=== PATIENT | female | born 1980 | race Caucasian/White ===

== ENCOUNTER 2023-11-02 09:09 | Outpatient (OUT) | payer MEDICAID, SELFPAY ==
[2023-11-02 09:41] LABS: Basophils Absolute Auto 0.1 10^3/uL (0.0-0.1); Basophils Percent Auto 1.5 % (0.2-2.0); Eosinophils Absolute Auto 0.2 10^3/uL (0.0-0.7); Eosinophils Percent Auto 2.5 % (0.9-7.0); Hematocrit 45.7 % (36.0-48.0); Hemoglobin 14.6 g/dL (12.0-16.0); Immature Granulocytes Abs Auto 0.02 10^3/uL (0.00-0.03); Immature Granulocytes Pct Auto 0.3 % (0.0-0.5); Lymphocytes Absolute Auto 2.1 10^3/uL (1.2-3.8); Lymphocytes Percent Auto 34.4 % (20.5-60.0); Mean Corpuscular HGB Conc 31.9 g/dL (29.9-35.2); Mean Corpuscular Hemoglobin 29.4 pg (26.7-34.0); Mean Platelet Volume 9.1 fL (9.5-13.5); Monocytes Absolute Auto 0.4 10^3/uL (0.3-0.8); Monocytes Percent Auto 6.6 % (1.7-12.0); Neutrophils Absolute Auto 3.3 10^3/uL (1.4-6.5); Neutrophils Percent Auto 54.7 % (43.0-75.0); Platelet Count 406 10^3/uL (150-450); Red Blood Count 4.97 10^6/uL (4.20-5.40); Red Cell Distribution Width 12.6 % (11.0-15.0); White Blood Count 6.1 10^3/uL (4.0-11.0)
[2023-11-02 10:32] LABS: Erythrocyte Sedimentation Rate 21 mm/hr (<=20)
[2023-11-02 10:34] LABS: Bilirubin Urine NEGATIVE (NEGATIVE); Blood Urine SMALL (NEGATIVE); Clarity Urine CLEAR (CLEAR); Color Urine YELLOW (YELLOW); Glucose Urine UA NEGATIVE (NEGATIVE); Ketones Urine NEGATIVE (NEGATIVE); Leukocyte Esterase Urine NEGATIVE (NEGATIVE); Nitrite Urine NEGATIVE (NEGATIVE); Protein Urine NEGATIVE (NEG/TRACE); Urobilinogen Urine 0.2 EU/dL (0.2-1.0)
[2023-11-02 10:35] LABS: Urine Microscopic Indicated YES
[2023-11-02 11:34] LABS: Alanine Aminotransferase 19 U/L (14-59); Alkaline Phosphatase 87 U/L (46-116); Anion Gap 8.6; Aspartate Amino Transferase 15 U/L (15-37); BUN Creatinine Ratio 18.7; Bilirubin Total 0.5 mg/dL (0.2-1.0); Calcium 9.7 mg/dL (8.5-10.1); Carbon Dioxide 28.4 mmol/L (21.0-32.0); Chloride 101 mmol/L (98-107); Cholesterol 237 mg/dL (<=200); Estimated GFR (African America >60 (>=60); Estimated GFR (Non-African Ame >60 (>=60); Free T3 2.94 pg/mL (2.18-3.98); Glucose 90 mg/dL (74-106); HDL Cholesterol 80 mg/dL (40-60); Sodium 134 mmol/L (136-145); Triglycerides 50 mg/dL (<=150)
[2023-11-02 12:00] LABS: Bacteria Urine SMALL #/HPF (NONE SEEN); Cast Seen? NONE SEEN #/LPF (NONE SEEN); Crystals Seen? None Seen #/HPF (None Seen); Mucus Urine NONE SEEN (NONE SEEN); Squamous Epithelial Cell Urine FEW #/LPF (NONE/RARE); WBC Urine 0-2 #/HPF (NONE SEEN)
[2023-11-02 12:01] LABS: Urine Culture Indicated YES
== END 2023-11-02 09:10 | disposition home or self-care (01) ==
LOC: LAB 09:13
PROVIDERS: PCP Nurse Practitioner; Visit Provider Nurse Practitioner
DX: R63.4 Abnormal weight loss (principal)
CPT/HCPCS: 36415; 80053; 80061; 81001; 84443; 84481; 85025; 85652; 87086

== ENCOUNTER 2023-11-19 13:49 | Outpatient (OUT) | payer MEDICAID, SELFPAY ==
--- NOTE | 2023-11-19 | US_ITS ---
Patient Name: ARIK LEMONS MR#: [id number] : 1980 Exam Date: 11/19/2023 Ordering Doctor: PRECIOUS Benavides CNP RADIOLOGY REPORT PROCEDURE: MM TOMOSYNTHESIS DIAGNOSTIC BI, 11/19/2023, 13:54 US BREAST RT LIMITED, 11/19/2023, 13:57 COMPARISON: MAMMO POST BIOPSY RIGHT, 09/13/2022. INDICATIONS: Atypical Ductal Hyperplasia Of Right Breast N60.91 Calculator Name NCI Breast Cancer Risk Assessment Tool 5 Year Breast Cancer Risk 3.50% Lifetime Breast Cancer Risk 28.30% Personal Breast Cancer No Personal Ovarian Cancer No Treatments None Family Cancers Mother with pancreas cancer at age 55; Grandfather-paternal with liver cancer at age ~68; Grandmother-paternal with brain cancer at age ~74. LOCATION: [facility] BREAST COMPOSITION: Extremely dense, which lowers the sensitivity of mammography. FINDINGS: DIAGNOSTIC CATEGORY 0--INCOMPLETE: NEED ADDITIONAL IMAGING EVALUATION. The breasts are stable in size and overall fibroglandular configuration. Very dense fibroglandular tissue limits diagnostic sensitivity.Scattered benign-appearing lymph nodes are present. RIGHT BREAST: There has been to a interval increase in fibroglandular density in the upper-outer quadrant of the right breast with marked increase in use microcalcifications some of which appear pleomorphic. This area has previously been biopsied as evidenced by a micro clip marker upper outer quadrant, mid to posterior breast. Ultrasound was performed demonstrating heterogeneous fibroglandular tissue with multiple areas of focal hypo echogenicity measuring up to 8.2 mm. In light of the increased overall density, and multiple ultrasound lesions, MRI follow-up is recommended. Alternatively ultrasound-guided biopsy could be performed LEFT BREAST: No significant suspicious finding. RECOMMENDATIONS: BREAST MRI: BILATERAL BREASTS PLEASE NOTE: A NORMAL MAMMOGRAM DOES NOT EXCLUDE THE POSSIBILITY OF BREAST CANCER. A CLINICALLY SUSPICIOUS PALPABLE LUMP SHOULD BE BIOPSIED. Dictated by: Kumar Nieves MD on 11/19/2023 at 15:15 Approved by: Kumar Nieves MD on 11/19/2023 at 15:19
--- NOTE | 2023-11-19 13:54 | MM_ITS ---
Patient Name: ARIK LEMONS MR#: [id number] : 1980 Exam Date: 11/19/2023 Ordering Doctor: PRECIOUS Benavides CNP RADIOLOGY REPORT PROCEDURE: MM TOMOSYNTHESIS DIAGNOSTIC BI, 11/19/2023, 13:54 US BREAST RT LIMITED, 11/19/2023, 13:57 COMPARISON: MAMMO POST BIOPSY RIGHT, 09/13/2022. INDICATIONS: Atypical Ductal Hyperplasia Of Right Breast N60.91 Calculator Name NCI Breast Cancer Risk Assessment Tool 5 Year Breast Cancer Risk 3.50% Lifetime Breast Cancer Risk 28.30% Personal Breast Cancer No Personal Ovarian Cancer No Treatments None Family Cancers Mother with pancreas cancer at age 55; Grandfather-paternal with liver cancer at age ~68; Grandmother-paternal with brain cancer at age ~74. LOCATION: [facility] BREAST COMPOSITION: Extremely dense, which lowers the sensitivity of mammography. FINDINGS: DIAGNOSTIC CATEGORY 0--INCOMPLETE: NEED ADDITIONAL IMAGING EVALUATION. The breasts are stable in size and overall fibroglandular configuration. Very dense fibroglandular tissue limits diagnostic sensitivity.Scattered benign-appearing lymph nodes are present. RIGHT BREAST: There has been to a interval increase in fibroglandular density in the upper-outer quadrant of the right breast with marked increase in use microcalcifications some of which appear pleomorphic. This area has previously been biopsied as evidenced by a micro clip marker upper outer quadrant, mid to posterior breast. Ultrasound was performed demonstrating heterogeneous fibroglandular tissue with multiple areas of focal hypo echogenicity measuring up to 8.2 mm. In light of the increased overall density, and multiple ultrasound lesions, MRI follow-up is recommended. Alternatively ultrasound-guided biopsy could be performed LEFT BREAST: No significant suspicious finding. RECOMMENDATIONS: BREAST MRI: BILATERAL BREASTS PLEASE NOTE: A NORMAL MAMMOGRAM DOES NOT EXCLUDE THE POSSIBILITY OF BREAST CANCER. A CLINICALLY SUSPICIOUS PALPABLE LUMP SHOULD BE BIOPSIED. Dictated by: Kumar Nieves MD on 11/19/2023 at 15:15 Approved by: Kumar Nieves MD on 11/19/2023 at 15:19
--- OUTSIDE RECORDS SUMMARY | 2023-11-19 13:54 | XMS_ITS | CCD ---
Author Name Unknown Address [id number] [place] [address] Organization [facility] Care Team Providers Care Code Enforcement Supervisor Name Role Phone AICHHOLZ, CANCER SPEC KITTY Admitting Unavailable AICHHOLZ, CANCER SPEC KITTY Attending Unavailable AICHHOLZ, CANCER SPEC KITTY Primary Care Unavailable AICHHOLZ, CANCER SPEC KITTY Consulting Unavailable KARASIK, DR MUÑOZ Admitting Unavailable KARASIK, DR MUÑOZ Attending Unavailable AICHHOLZ, CANCER SPEC KITTY Primary Care Unavailable KARASIK, DR MUÑOZ Consulting Unavailable BUTLER, DR MAIN Consulting Unavailable AICHHOLZ, CANCER SPEC KITTY Admitting Unavailable AICHHOLZ, CANCER SPEC KITTY Attending Unavailable AICHHOLZ, CANCER SPEC KITTY Primary Care Unavailable AICHHOLZ, CANCER SPEC KITTY Consulting Unavailable MISC, DR DUMONT Admitting Unavailable MISC, DR DUMONT Attending Unavailable AICHHOLZ, CANCER SPEC KITTY Primary Care Unavailable MISC, DR DUMONT Consulting Unavailable MISC, DR DUMONT Admitting Unavailable MISC, DR DUMONT Attending Unavailable AICHHOLZ, CANCER SPEC KITTY Primary Care Unavailable MISC, DR DUMONT Consulting Unavailable KARASIK, DR MUÑOZ Admitting Unavailable KARASIK, DR MUÑOZ Attending Unavailable AICHHOLZ, CANCER SPEC KITTY Primary Care Unavailable KARASIK, DR MUÑOZ Consulting Unavailable ZIEBER, DR PARVEEN Lopez Consulting Unavailable MISC, DR DUMONT Admitting Unavailable MISC, DR DUMONT Attending Unavailable AICHHOLZ, CANCER SPEC KITTY Primary Care Unavailable KARASIK, DR MUÑOZ Admitting Unavailable KARASIK, DR MUÑOZ Attending Unavailable AICHHOLZ, CANCER SPEC KITTY Primary Care Unavailable KARASIK, DR MUÑOZ Consulting Unavailable AICHHOLZ, KITTY Attending Unavailable AICHHOLZ, KITTY Attending Unavailable Allergies Allergy Classification Reported Allergen(s) Allergy Type Date of Onset Reaction(s) Facility (1 source) lamoTRIgine Drug Allergy 08-31-[address] [facility] Repository Problems Active Problems Problem Classification Problem Date Documented Date Episodic/Chronic Anxiety disorders (2 sources) Post-traumatic stress disorder, unspecified; Translations: [Generalized anxiety disorder] Onset: 2 Chronic Immunizations and screening for infectious disease (1 source) Encounter for screening for human papillomavirus (HPV); Translations: [ENC SCREENING HUMAN PAPILLOMAVIRUS] Onset: 2 Episodic Mood disorders (4 sources) Bipolar disorder, current episode mixed, severe, without psychotic features; Translations: [BIPOLAR CURR MIXED SEVERE W/O PSYCH] Onset: 2 Chronic Nonmalignant breast conditions (10 sources) Mammographic microcalcification found on diagnostic imaging of breast; Translations: [Hypertrophy of breast] Onset: 2 Episodic Other nutritional; endocrine; and metabolic disorders (5 sources) Polydipsia; Translations: [POLYDIPSIA] Onset: 2 Episodic Other screening for suspected conditions (not mental disorders or infectious disease) (4 sources) Encounter for screening for malignant neoplasm of cervix; Translations: [ENC SCREENING MALIG NEOPLASM CERV] Onset: 2 Episodic Schizophrenia and other psychotic disorders (1 source) Unspecified psychosis not due to a substance or known physiological condition; Translations: [UNS PSYCHOS D/O NOT SUBSTNC/PHYSIOL] Onset: 2 Chronic Skin and subcutaneous tissue infections (5 sources) Local infection of the skin and subcutaneous tissue, unspecified; Translations: [Cutaneous abscess, unspecified] Onset: 2 Episodic Past or Other Problems Problem Classification Problem Date Documented Da te Episodic/Chronic Other aftercare (1 source) Other mcfp (current) drug therapy; Translations: [OTH PENITENTIARY 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 THERAPY] Onset: 06-22-2022 Episodic Residual codes; unclassified (1 source) Anterograde amnesia; Translations: [ANTEROGRADE AMNESIA] Onset: 06-22-2022 Episodic Results Test Name Value Interpretation Reference Range Facility MAMMO POST BIOPSY RIGHTon MAMMO POST BIOPSY RIGHT Patient: ARIK LEMONS Exam Date: 09/13/2022 : 1980 Gender:F Ordering : DR TONI STEVE . Admission #: [id number] Family : Order #: [id number] CLICK HERE TO VIEW EXAM This report includes an Addendum and supersedes previous reports for this exam. RADIOLOGY REPORT PROCEDURE: MAMMOGRAM POST BIOPSY IMAGES COMPARISON: MG STEREO CORE NDL W CLIP RT, 09/13/2022. INDICATIONS: Microcalcifications of the breast BREAST COMPOSITION: Extremely dense, which lowers the sensitivity of mammography. FINDINGS: BIOPSY MARKER: A metallic marker has been placed in the targeted location within the posterior upper-outer quadrant of the right breast. BREAST FINDINGS: Expected post biopsy findings. RECOMMENDATIONS: Dictated by: Parveen Peralta M.D. on 09/13/2022 at 15:26 Approved by: Parveen Peralta M.D. on 09/13/2022 at 15:27 ADDENDUM: COMPARISON: MG MAMM DIAGNOSTIC 3D GREGG CAD, 08/31/2022. FINDINGS: DIAGNOSTIC CATEGORY 3--PROBABLY BENIGN FINDING. THE FOLLOWING FINDING(S) HAS A HIGH PROBABILITY OF A BENIGN ETIOLOGY: RECOMMENDATIONS: SURGICAL CONSULTATION. SHORT TERM FOLLOW-UP DIAGNOSTIC MAMMOGRAM RIGHT BREAST IN 6 MONTHS. Dictated by: Parveen Peralta M.D. on 09/25/2022 at 12:23 Approved by: Parveen Peralta M.D. on 09/25/2022 at 12:[address] [facility] MG STEREO CORE NDL W CLIP RT on 09-13-2022 MG STEREO CORE NDL W CLIP RT Patient: ARIK LEMONS Exam Date: 09/13/2022 : 1980 Gender:F Ordering : DR TONI STEVE . Admission #: [id number] Family : Order #: [id number] CLICK HERE TO VIEW EXAM This report includes an Addendum and supersedes previous reports for this exam. RADIOLOGY REPORT PROCEDURE: MAMMOGRAM STEREO CORE MARILY WITH CLIP RIGHT COMPARISON: MG MAMM DIAGNOSTIC 3D GREGG CAD, 08/31/2022. MG MAMM GREGG DIAG W CAD DIG, 01/02/2016. BREAST GREGG LIMITED, 08/31/2022. INDICATIONS: Microcalcifications of the breast DESCRIPTION: Following informed consent, digital stereotactic mammographic views were obtained to localize the lesion. Multiple vacuum-assisted core biopsies were obtained. Specimen images were obtained to confirm proper sampling. The location of the biopsy was then marked as indicated below. FINDINGS: RECOMMENDATIONS: SPECIMEN #, LOCATION: 5 core specimens; posterior upper-outer quadrant.. SPECIMEN IMAGE: Numerous calcifications within multiple cores. BIOPSY NEEDLE: 10 gauge Revolve(r) vacuum core biopsy needle. MARKER(S) PLACED: A single metallic marker was placed in the appropriate targeted location. MEDICATION: Buffered 1% lidocaine superficial;1% lidocaine with epinephrine deep. COMPLICATIONS: None. PATHOLOGY / LAB: Pending. CONCLUSION: 1. Technically successful biopsy of the breast lesion. 2. Pathology results are pending. An addendum will be added when pathology results are final. Dictated by: Parveen Peralta M.D. on 09/13/2022 at 15:25 Approved by: Parveen Peralta M.D. on 09/13/2022 at 15:26 ADDENDUM: Final pathologic diagnosis: Focus of atypical ductal hyperplasia. Fibrocystic changes. Microcalcifications. This report was transmitted to the referring physician's office on September 25, 2022, and the office called to confirm receipt. Dictated by: Parveen Peralta M.D. on 09/25/2022 at 12:21 Approved by: Parveen Peralta M.D. on 09/25/2022 at 12:[address] [facility] HIV 1 AND 2 WITH REFLEXon HIV Screen 4th Generation wRfx Non-Reactive Normal Non Reactive [facility] Comment on above: Result Comment: HIV Negative HIV-1/HIV-2 antibodies and HIV-1 p24 antigen were NOT detected. There is no laboratory evidence of HIV infection. Performed By: #### H IV12 #### [facility] [address] [place] [address] Dr. Francisca Henderson RPR QUANTon 09-02-2022 Rapid Plasma Reagin, Quant Non-Reactive Normal NonRea<1:1 [facility] Comment on above: Result Comment: Plea se Note: This test does not meet current guidelines for screening and diagnosis of syphilis. This test is intended for following treatment response in patients being treated for syphilis infection. To screen for syphilis infection, a reflex cascade that includes both RPR and a treponema-specific assay should be utilized, such as Treponema pallidum (Syphilis) Screening [place] (684008) or Rapid Plasma Reagin (RPR) Test With Reflex to Quantitative RPR and Confirmatory Treponema pallidum Antibodies (781157). Performed By: #### R PRQ ####[facility] [id number] [place], [place] [address]QbDr. Francisca Henderson CBC AUTO DIFFon 08-31-2022 BASO # 0.1 103/ul Normal 0.0-0.1 [facility] Comment on above: Performed By: #### C BC #### [facility] [address] [address] [address] Francisca Henderson Basophils/100 WBC (Bld) 1.1 % Normal 0.2-2.0 [facility] Comment on above: Performed By: #### C BC #### [facility] [address] [address] [address] Francisca Henderson EO # 0.3 103/ul Normal 0.0-0.7 [facility] Comment on above: Performed By: #### C BC #### [facility] [address] [address] [address] Francisca Henderson Eosinophils/100 WBC (Bld) 2.8 % Normal 0.9-7.0 [facility] Comment on above: Performed By: #### C BC #### [facility] [address] [address] [address] Francisca Henderson Erythrocyte distribution width (RBC) [Ratio] 12.3 % Normal 11.0-15.0 [facility] Comment on above: Performed By: #### C BC #### [facility] [address] [address] [address] Francisca Henderson Hematocrit (Bld) [Volume fraction] 39.4 % Normal 36.0-48.0 [facility] Comment on above: Performed By: #### C BC #### [facility] [address] [address] [address] Francisca Henderson Hemoglobin (Bld) [Mass/Vol] 12.8 g/dL Normal 12.0-16.0 [facility] Comment on above: Performed By: #### C BC #### [facility] [address] [address] [address] Francisca Henderson IG # 0.03 10e3/ul Normal 0.00-0.03 [facility] Comment on above: Performed By: #### C BC #### [facility] [address] [place] [address] Dr. Francisca Henderson IG % 0.3 % Normal 0.0-0.5 [facility] Comment on above: Performed By: #### C BC #### [facility] [address] [place] [address] Dr. Francisca Henderson LYMPH # 2.6 103/ul Normal 1.2-3.8 [facility] Comment on above: Performed By: #### C BC #### [facility] [address] [place] [address] Dr. Francisca Henderson Lymphocytes/100 WBC (Bld) 29.1 % Normal 20.5-60.0 [facility] Comment on above: Performed By: #### C BC #### [facility] [address] [place] [address] Dr. Francisca Henderson MANUAL DIFF REQ NO Normal [facility] Comment on above: Performed By: #### C BC #### [facility] [address] [place] [address] Dr. Francisca Henderson MCH (RBC) [Entitic mass] 29.6 pg Normal 26.7-34.0 [facility] Comment on above: Performed By: #### C BC #### [facility] [address] [place] [address] Dr. Francisca Henderson MCHC (RBC) [Mass/Vol] 32.5 g/dL Normal 29.9-35.2 [facility] Comment on above: Performed By: #### C BC #### [facility] [address] [place] [address] Dr. Francisca Henderson MCV (RBC) [Entitic vol] 91.0 fL Normal 81.0-99.0 [facility] Comment on above: Performed By: #### C BC #### [facility] [address] [place] [address] Dr. Francisca Henderson MONO # 0.5 103/ul Normal 0.3-0.8 [facility] Comment on above: Performed By: #### C BC #### [facility] [address] [address] [address] Francisca Henderson Monocytes/100 WBC (Bld) 5.3 % Normal 1.7-12.0 [facility] Comment on above: Performed By: #### C BC #### [facility] [address] [address] [address] Francisca Henderson NEUT # 5.4 103/ul Normal 1.4-6.5 [facility] Comment on above: Performed By: #### C BC #### [facility] [address] [address] [address] Francisca Henderson Neutrophils/100 WBC (Bld) 61.4 % Normal 43.0-75.0 [facility] Comment on above: Performed By: #### C BC #### [facility] [address] [place] [address] Dr. Francisca Henderson Platelet mean volume (Bld) [Entitic vol] 8.8 fL Critically low 9.5-13.5 [facility] Comment on above: Performed By: #### C BC #### [facility] [address] [place] [address] Dr. Francisca Henderson PLT 451 103/ul Critically high 150-450 [facility] Comment on above: Performed By: #### C BC #### [facility] [address] [place] [address] Dr. Francisca Henderson RBC 4.33 106/ul Normal 4.20-5.[address] [facility] Comment on above: Performed By: #### C BC #### [facility] [address] [place] [address] Dr. Francisca Henderson WBC 8.8 103/ul Normal 4.0-11.[address] [facility] Comment on above: Performed By: #### C BC #### [facility] [address] [place] [address] Dr. Francisca Henderson MG MAMM DIAGNOSTIC 3D GREGG CA Don 08-31-2022 MG MAMM DIAGNOSTIC 3D GREGG CAD Patient: ARIK LEMONS Exam Date: 08/31/2022 : 1980 Gender:F Ordering : DR TONI STEVE . Admission #: [id number] Family : Order #: [id number] CLICK HERE TO VIEW EXAM RADIOLOGY REPORT PROCEDURE: MAMMOGRAM DIAGNOSTIC 3D BILATERAL CAD, 08/31/2022, 13:44 ULTRASOUND BREAST BILATERAL LIMITED, 08/31/2022, 14:47 COMPARISON: MG MAMM GREGG DIAG W CAD DIG, 01/02/2016. INDICATIONS: Discharge from nipple Calculator Name NCI Breast Cancer Risk Assessment Tool 5 Year Breast Cancer Risk 0.60% Lifetime Breast Cancer Risk 10.10% Personal Breast Cancer No Personal Ovarian Cancer No Treatments None Family Cancers Mother with pancreas cancer at age 55; Grandfather-paternal with liver cancer at age 68; Grandmother-paternal with brain cancer at age 74. LOCATION: [facility] BREAST COMPOSITION: Extremely dense, which lowers the sensitivity of mammography. FINDINGS: DIAGNOSTIC CATEGORY 4--SUSPICIOUS FOR MALIGNANCY. FINDING DOES NOT EXHIBIT CLASSIC FINDINGS OF BREAST CANCER: Scattered benign-appearing lymph nodes are present. Scattered benign-appearing nodules are present. RIGHT BREAST: Multiple nodules which appear increased from prior exam. New geographic pleomorphic microcalcifications upper outer quadrant, mid to posterior breast. No corresponding mammographic abnormality. Multiple simple cysts are observed by ultrasound. LEFT BREAST: Scattered nodules. Multiple simple cyst observed by ultrasound. RECOMMENDATIONS: STEREOTACTIC BREAST BIOPSY: RIGHT BREAST pleomorphic microcalcifications upper outer quadrant PLEASE NOTE: A NORMAL MAMMOGRAM DOES NOT EXCLUDE THE POSSIBILITY OF BREAST CANCER. A CLINICALLY SUSPICIOUS PALPABLE LUMP SHOULD BE BIOPSIED. Dictated by: Kumar Nieves MD on 08/31/2022 at 15:27 Approved by: Kumar Nieves MD on 08/31/2022 at 15:[address] [facility] PROF 14(COMP METB)on 022 Albumin [Mass/Vol] 3.8 g/dL Normal 3.4-5.0 [facility] Comment on above: Performed By: #### C MP #### [facility] [address] [place] [address] Dr. Francisca Henderson Albumin/Globulin [Mass ratio] 1.0 {ratio} Normal [facility] Comment on above: Performed By: #### C MP #### [facility] [address] [place], [place] [address] Dr. Francisca Henderson ALP [Catalytic activity/Vol] 89 U/L Normal 46-[address] [facility] Comment on above: Performed By: #### C MP #### [facility] [address] [place] [address] Dr. Francisca Henderson ALT [Catalytic activity/Vol] 18 U/L Normal 14-59 [facility] Comment on above: Performed By: #### C MP #### [facility] [address] [place] [address] Dr. Francisac Henderson Anion gap [Moles/Vol] 6.3 mmol/L Normal [facility] Comment on above: Performed By: #### C MP #### [facility] [address] [place] [address] Dr. Francisca Henderson AST [Catalytic activity/Vol] 16 U/L Normal 15-37 [facility] Comment on above: Performed By: #### C MP #### [facility] [address] [place] [address] Dr. Francisca Henderson Bilirubin [Mass/Vol] 0.2 mg/dL Normal 0.2-1.0 [facility] Comment on above: Performed By: #### C MP #### [facility] [address] [place] [address] Dr. Francisca Henderson Calcium [Mass/Vol] 9.4 mg/dL Normal 8.5-10.1 [facility] Comment on above: Performed By: #### C MP #### [facility] [address] [place] [address] Dr. Francisca Henderson Chloride [Moles/Vol] 105 mmol/L Normal 98-[address] [facility] Comment on above: Performed By: #### C MP #### [facility] [address] [address] [address] Francisca Henderson CO2 [Moles/Vol] 29.1 mmol/L Normal 21.0-32.0 [facility] Comment on above: Performed By: #### C MP #### [facility] [address] [place] [address] Dr. Francisca Henderson Creatinine [Mass/Vol] 0.99 mg/dL Normal 0.55-1.02 [facility] Comment on above: Performed By: #### C MP #### [facility] [address] [address] [address] Francisca Henderson EGFR-AF [place] >60 Normal >=60 [facility] Comment on above: Performed By: #### C MP #### [facility] [address] [address] [address] Francisca Henderson EGFR-NON AF [place] >60 Normal >=[address] [facility] Comment on above: Performed By: #### C MP #### [facility] [address] [address] [address] Francisca Henderson Globulin (S) [Mass/Vol] 3.7 g/dL Normal [facility] Comment on above: Performed By: #### C MP #### [facility] [address] [place] [address] Dr. Francisca Henderson Glucose [Mass/Vol] 87 mg/dL Normal 74-106 [facility] Comment on above: Performed By: #### C MP #### [facility] [address] [place] [address] Dr. Francisca Henderson Potassium [Moles/Vol] 4.4 mmol/L Normal 3.5-5.[address] [facility] Comment on above: Performed By: #### C MP #### [facility] [address] [place] [address] Dr. Francisca Henderson Protein [Mass/Vol] 7.5 g/dL Normal 6.4-8.2 [facility] Comment on above: Performed By: #### C MP #### [facility] [address] [place] [address] Dr. Francisca Henderson Sodium [Moles/Vol] 136 mmol/L Normal 136-145 [facility] Comment on above: Performed By: #### C MP #### [facility] [address] [place] [address] Dr. Francisca Henderson Urea nitrogen [Mass/Vol] 15.0 mg/dL Normal 7.0-18.0 [facility] Comment on above: Performed By: #### C MP #### [facility] [address] [place], [place] [address] Dr. Francisca Henderson Urea nitrogen/Creatinine [Mass ratio] 15.2 mg/mg Normal [facility] Comment on above: Performed By: #### C MP #### [facility] [address] [place], [place] [address] Dr. Francisca Henderson [facility] SED RATE 24 mm/hr Critically high <=20 [facility] Comment on above: Performed By: #### S EDR #### [facility] [address] [place], [place] [address] Dr. Francisca Henderson US BREAST GREGG LIMITEDon 11-0 US BREAST GREGG LIMITED Patient: ARIK LEMONS Exam Date: 08/31/2022 : 1980 Gender:F Ordering : DR TONI STEVE . Admission #: [id number] Family : Order #: [id number] CLICK HERE TO VIEW EXAM RADIOLOGY REPORT PROCEDURE: MAMMOGRAM DIAGNOSTIC 3D BILATERAL CAD, 08/31/2022, 13:44 ULTRASOUND BREAST BILATERAL LIMITED, 08/31/2022, 14:47 COMPARISON: MG MAMM GREGG DIAG W CAD DIG, 01/02/2016. INDICATIONS: Discharge from nipple Calculator Name NCI Breast Cancer Risk Assessment Tool 5 Year Breast Cancer Risk 0.60% Lifetime Breast Cancer Risk 10.10% Personal Breast Cancer No Personal Ovarian Cancer No Treatments None Family Cancers Mother with pancreas cancer at age 55; Grandfather-paternal with liver cancer at age 68; Grandmother-paternal with brain cancer at age 74. LOCATION: [facility] BREAST COMPOSITION: Extremely dense, which lowers the sensitivity of mammography. FINDINGS: DIAGNOSTIC CATEGORY 4--SUSPICIOUS FOR MALIGNANCY. FINDING DOES NOT EXHIBIT CLASSIC FINDINGS OF BREAST CANCER: Scattered benign-appearing lymph nodes are present. Scattered benign-appearing nodules are present. RIGHT BREAST: Multiple nodules which appear increased from prior exam. New geographic pleomorphic microcalcifications upper outer quadrant, mid to posterior breast. No corresponding mammographic abnormality. Multiple simple cysts are observed by ultrasound. LEFT BREAST: Scattered nodules. Multiple simple cyst observed by ultrasound. RECOMMENDATIONS: STEREOTACTIC BREAST BIOPSY: RIGHT BREAST pleomorphic microcalcifications upper outer quadrant PLEASE NOTE: A NORMAL MAMMOGRAM DOES NOT EXCLUDE THE POSSIBILITY OF BREAST CANCER. A CLINICALLY SUSPICIOUS PALPABLE LUMP SHOULD BE BIOPSIED. Dictated by: Kumar Nieves MD on 08/31/2022 at 15:27 Approved by: Kumar Nieves MD on 08/31/2022 at 15:[address] [facility] CULTURE WOUNDon 07-12-2022 CULTURE WOUND Culture Observations : METHICILLIN RESISTANT STAPH AUREUS ISOLATED. PLEASE FOLLOW APPROPRIATE ISOLATION PROCEDURES. Culture Observations: Called MRSA to Muna Quach MA on 07/12 @ 1002 Isolate 1 Staphylococcus aureus Light growth of ORGANISM 1 Staphylococcus aureus ANTIBIOTIC M.I.C RX STATUS Beta-Lactamase Pos POS F Cefoxitin Screen Pos POS F Benzylpenicillin >=0.5 R F Ciprofloxacin <=0.5 S F Levofloxacin <=0.12 S F Inducible Clindamycin Resistance Neg NEG F Erythromycin <=0.25 S F Clindamycin <=0.25 S F Quinupristin/Dalfoprist in <=0.25 S F Linezolid 2 S F Vancomycin <=0.5 S F Tetracycline <=1 S F Rifampicin <=0.5 S F Trimethoprim/Sulfametho xazole <=10 S F Oxacillin >=[address] [facility] Comment on above: Performed By: #### W OUNDCX ####[facility] [address] [place], [place] [address]DrChuck Henderson PAP ACOG PANEL 2: 30 to 65on 07-09-[address] [facility] Comment on above: Result Comment: Perf ormed at: WB Performed By: #### [id number] ####[facility] [address] [place], [place] [address]DrChuck Henderson Age Gdln ACOG Testing 30-[address] [facility] Comment on above: Performed By: #### [id number] ####[facility] [address] [place], [place] [address]DrChuck Henderson DIAGNOSIS: Comment Normal [facility] Comment on above: Result Comment: NEGA TIVE FOR INTRAEPITHELIAL LESION OR MALIGNANCY. Performed at: WB Performed By: #### 4 [id number] ####[facility] [address] [place], [place] [address]DrChuck Henderson HPV Aptima Negative Normal Negative [facility] Comment on above: Result Comment: This nucleic acid amplification test detects fourteen high-risk HPV types (16,18,31,33,35,39,45,51,52,56,58,59,66,68) without differentiation. Performed at: =G Performed By: #### [id number] ####[facility] [address] [place], [place] [address]DrChuck Henderson Methodology: Comment Normal [facility] Comment on above: Result Comment: This liquid based ThinPrep(R) pap test was screened with the use of an image guided system. Performed at: WB Performed By: #### [id number] ####[facility] [address] [place], [place] [address]DrChuck Henderson Note: Comment Normal [facility] Comment on above: Result Comment: The Pap smear is a screening test designed to aid in the detection of premalignant and malignant conditions of the uterine cervix. It is not a diagnostic procedure and should not be used as the sole means of detecting cervical cancer. Both false-positive and false-negative reports do occur. . Performed at: WB Performed By: #### [id number] ####[facility] [address] [place], [place] [address]Dr. Francisca Henderson Performed by: Comment Normal [facility] Comment on above: Result Comment: Pamela Yepez, Shrink Pit Operator (ASCP) Performed at: WB Performed By: #### [id number] ####[facility] [address] [place], [place] [address]Dr. Francisca Henderson Specimen adequacy: Comment Normal [facility] Comment on above: Result Comment: Sati sfactory for evaluation. Endocervical and/or squamous metaplastic cells (endocervical component) are present. Performed at: WB Performed By: #### [id number] ####[facility] [id number] [place], [place] [address]DrChuck Henderson LITHIUMon 06-21-2022 [place] (Eskalith(R)), Serum 1.3 mmol/L Invalid Interpretation Code 0.5-1.2 [facility] Comment on above: Result Comment: Plas ma concentration of 0.5 - 0.8 mmol/L are advised for long-term use; concentrations of up to 1.2 mmol/L may be necessary during acute treatment. Detection Limit = 0.1 <0.1 indicates None Detected Patient drug level exceeds published reference range. Evaluate clinically for signs of potential toxicity. Performed By: #### L ITHIUM ####[facility] [id number] [place], [place] [address]HzDr. Francisca Henderson ELECTROLYTESon 06-20-2022 Anion gap [Moles/Vol] 11.8 mmol/L Normal [facility] Comment on above: Performed By: #### E LEC #### [facility] [address] [address] [address] Francisca Henderson Chloride [Moles/Vol] 100 mmol/L Normal 98-107 [facility] Comment on above: Performed By: #### E LEC #### [facility] [address] [address] [address] Francisca Henderson CO2 [Moles/Vol] 28.4 mmol/L Normal 21.0-32.0 [facility] Comment on above: Performed By: #### E LEC #### [facility] [address] [address] [address] Francisca Henderson Potassium [Moles/Vol] 4.2 mmol/L Normal 3.5-5.1 [facility] Comment on above: Performed By: #### E LEC #### [facility] [address] [address] [address] Francisca Henderson Sodium [Moles/Vol] 136 mmol/L Normal 136-145 [facility] Comment on above: Performed By: #### E LEC #### [facility] [address] [address] [address] Francisca Henderson LITHIUMon 02-10-2022 [place] (Eskalith(R)), Serum 0.4 mmol/L Critically low 0.5-1.2 [facility] Comment on above: Result Comment: Plas ma concentration of 0.5 - 0.8 mmol/L are advised for long-term use; concentrations of up to 1.2 mmol/L may be necessary during acute treatment. Detection Limit = 0.1 <0.1 indicates None Detected Performed By: #### L ITHIUM #### [facility] [address] [address] [address] Francisca Henderson ELECTROLYTESon 02-09-2022 Anion gap [Moles/Vol] 10.1 mmol/L Normal [facility] Comment on above: Performed By: #### E LEC #### [facility] [address] [place] [address] Dr. Francisca Henderson Chloride [Moles/Vol] 103 mmol/L Normal 98-107 [facility] Comment on above: Performed By: #### E LEC #### [facility] [address] [place] [address] Dr. Francisca Henderson CO2 [Moles/Vol] 29.3 mmol/L Normal 22.0-30.0 [facility] Comment on above: Performed By: #### E LEC #### [facility] [address] [place] [address] Dr. Francisca Henderson Potassium [Moles/Vol] 4.4 mmol/L Normal 3.4-5.0 [facility] Comment on above: Performed By: #### E LEC #### [facility] [address] [place] [address] Dr. Francisca Henderson Sodium [Moles/Vol] 138 mmol/L Normal 137-145 [facility] Comment on above: Performed By: #### E LEC #### [facility] [address] [place] [address] Dr. Francisca Henderson Auth for Release of Medical Recordson 03-07-2021 Auth for Release of Medical Records [id number] D:127 Normal [facility] Video Visit - Telehealtho n 08-11-2020 Video Visit - Telehealth Chief Complaint 6 week f/u Subjective Interval History/HPI This visit was conducted via two-way, real-time interactive video communications from my office using Symptom.ly due to the restrictions of the COVID-19 pandemic. No physical exam was conducted other than those areas of the body visible to telecommunications with the patient located at [address] [place] [id number], with no one else in attendance. If it is determined that the patient should be evaluated in the clinic, the patient will be directed to the appropriate clinic or venue. The patient or their guardian verbally consented to this visit. Video time was 10 minutes with the patient face to face greater than 50% in addition to counseling and coordination of care. Patient is seen via video conferencing, audiovisual quality was fair, patient was able to engage and answer questions appropriately. Patient continues to do well on her current regimen of lithium and Wellbutrin. Ativan continues to help her anxiety. She has no ongoing concerns to report and wants to stay on the same plan. Reports no decline in her mood since she was last seen here. She denied ongoing sadness or depressed moods. Reports fair energy and fair motivation. She has been active and taking care of her daily ADLS and Chores. Denied anhedonia. She has not been withdrawn or tearful and has been able to be social with the family and friends. Normal Appetite reported She denied feeling hopeless or worthless and denies ongoing morbid thoughts. Denies ongoing suicidal ideation, intent and plan. She denies having pervasive irritable or elated moods. She is not experiencing any manic mood symptoms at this time. She denies ongoing FOI or racing thoughts or distractibility. She denies any increased busyness or increased goal-directed activities. Impulse control has been fair and she denied engaging anything reckless or impulsive. No ongoing alcohol or drug abuse reported by pt. Pt denied ongoing excessive anxiety or worries at this time. She reports minimal breakthrough anxiety. Interpersonal issues were discussed: Support provided Insight Oriented/ behavior modifying/ Supportive Therapy: XXX Mood Assessment: Stable mood. No pervasive sadness or irritability reported. Medication Assessment: Pt reports good compliance. No side effects reported. We will continue the same plan ISP - Goals and Objectives of Treatment: Maintain mood stability Maintain good anxiety control Medication and Treatment Compliance Review of Systems ROS - Provider Constitutional: no fever, no chills, no sweats, no weakness. Skin: no Jaundice, no rash, no lesions, no petechiae. ENMT: no ear pain, no sore throat, no congestion, no hoarseness. Respiratory: no shortness of breath, no cough, no orthopnea, no wheezing. Cardiovascular: no chest pain, no palpitations, no edema. Gastrointestinal: no nausea, no vomiting, no diarrhea, no GI bleeding. Genitourinary: no dysuria, no hematuria, no discharge, no pain. Mental Status Exam Appearance.: Appropriately dressed and groomed, appears stated age Behavior: cooperative Speech: Normal rate and tone and normal prosody Affect: pleasant Mood:'good' Thought Process/Associations: Logical and goal directed Thought Content.: Non-psychotic Cognition/Attention/Mem ory/Concentration: Alert and oriented x4 Insight/Judgement:fair Suicidal: Denies ongoing suicidal ideation, intent and plan. Homicidal: Denied ongoing homicidal ideations, intent or plan. Language: Within normal limits Fund of Knowledge: Adequate Risk Assessment Currently at low risk of self harm. Denied ongoing feelings of hopelessness. Denies ongoing suicidal ideation, intent and plan in session Diagnosis/Assessment/Tr eatment Plan 1. Mild depressed bipolar I disorder (F31.31: Bipolar disorder, current episode depressed, mild) in remission 2. Anxiety (F41.9: Anxiety disorder, unspecified) 3. 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 158.2, cm, 06/30/20 10:05:00 EDT, Height/Length Dosing, 61, kg, 06/30/20 10:05:00 EDT, Weight Dosing buPROPion, See Instructions, 1 tab(s) Oral at 3 pm, # 30 tab(s), Refills(s) 5, Pharmacy: [facility] [facility] 158.2, cm, 06/30/20 10:05:00 EDT, Height/Length Dosing, 61, kg, 06/30/20 10:05:00 EDT, Weight Dosing lithium, 450 mg = 1 tab(s), Oral, Bedtime, # 30 tab(s), Refills(s) 5, Pharmacy: [facility] [facility], 158.2, cm, 06/30/20 10:05:00 EDT, Height/Length Dosing, 61, kg, 06/30/20 10:05:00 EDT, Weight Dosing lithium, See Instructions, take 1 tablet by mouth every evening WITH 450 MG DOSE, # 30 tab(s), Refills(s) 5, [facility], 158.2, cm, 06/30/20 10:05:00 EDT, Height/Length Dosing, 61, kg, 06/30/20 10:05:00 EDT, Weight Dosing lorazepam, 0.5 mg = 1 tab(s), Oral, Daily, PRN as need (more content not included)... Normal [facility] Comment on above: Result Comment: Elec tronically Signed By: NAFISA BERMAN, Lidia\.br\Date and Time Signed: 08/11/20 10:30 EDT Video Visit - Telehealtho n 06-30-2020 Video Visit - Telehealth Chief Complaint Video visit done using Facetime format visit done with patient from her home for medication and mood management follow up. Gave verbal height and weight. Subjective Interval History/HPI This visit was conducted via two-way, real-time interactive video communications from my office using Symptom.ly due to the restrictions of the COVID-19 pandemic. No physical exam was conducted other than those areas of the body visible to telecommunications with the patient located at [address] [place], [place] [id number], with no one else in attendance. If it is determined that the patient should be evaluated in the clinic, the patient will be directed to the appropriate clinic or venue. The patient or their guardian verbally consented to this visit. Video time was 10 minutes with the patient face to face greater than 50% in addition to counseling and coordination of care. Patient is seen via video conferencing, audiovisual quality was fair, patient was able to engage and answer questions appropriately. She continues to do fairly well on her current regimen. She reports no decline in her moods or behavior since she was last seen here. Current moods are stable and she denied ongoing sadness or depressed moods. Reports fair energy and fair motivation. She has been active and taking care of her daily ADLS and Chores. She is not isolating herself for complaining of fatigue or tiredness, she also denied anhedonia. Normal Appetite reported. She denied feeling hopeless or worthless and denies ongoing morbid thoughts. Denies ongoing suicidal ideation, intent and plan. Patient reported she has had no manic mood symptoms or episodes since last seen, currently also she is not experiencing any manic mood symptoms. Denied any ongoing pervasive irritability or elated moods, she is not complaining of any racing thoughts or flight of ideas, speech within normal limits, denies any ongoing increased busyness or increased goal-directed activities. Reports fair impulse control No ongoing alcohol or drug abuse reported by pt. Pt denied ongoing excessive anxiety or worries and reports Ativan has helped her significantly Interpersonal issues were discussed: Support provided Insight Oriented/ behavior modifying/ Supportive Therapy: XXX Mood Assessment: Stable mood. No pervasive sadness or irritability reported. Medication Assessment: Pt reports good compliance. Will continue with current plan. We will also get some baseline blood work ISP - Goals and Objectives of Treatment: Maintain mood stability Maintain good anxiety control Medication and Treatment Compliance Review of Systems ROS - Provider Constitutional: no fever, no chills, no sweats, no weakness Respiratory: no shortness of breath, no cough Cardiovascular: no chest pain Objective Vitals & Measurements HT: 158.2 cm HT: 158.2 cm WT: 61 kg WT: 61.0 kg BMI: 24.37 Mental Status Exam Appearance.: Appropriately dressed and groomed, appears stated age Behavior: cooperative BH Speech: Normal rate and tone and normal prosody Affect: Full, Congruent Mood:'good' Thought Process/Associations: Logical and goal directed Thought Content.: Non-psychotic Cognition: Alert and oriented x3 Insight/Judgement:fair Suicidal: Denies ongoing suicidal ideation, intent and plan. Homicidal: Denied ongoing homicidal ideations, intent or plan. Language: Within normal limits Fund of Knowledge: Adequate Risk Assessment Currently at low risk of self harm. Denied ongoing feelings of hopelessness. Denies ongoing suicidal ideation, intent and plan in session Diagnosis/Assessment/Tr eatment Plan Informed Consent: Standard Inform Consent (IC), Non-FDA Guidelines Off-Use IC Informed Consent Obtained: Yes, we discussed the diagnosis/diagnoses, the treatment options, treatment/treatments recommended vs. no treatment. We discussed risks and benefits of treatment options, treatment recommendations and vs. no treatment. 1. Mild depressed bipolar I disorder (F31.31: Bipolar disorder, current episode depressed, mild) Ordered: Comprehensive Metabolic Panel Lipid Panel [place] Level TELEHEALTH Office Visit Level 3 Est 65174 Thyroid Stimulating Hormone Urinalysis 2. 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) Ordered: Comprehensive Metabolic Panel Lipid Panel [place] Level TELEHEALTH Office Visit Level 3 Est 97996 Thyroid Stimulating Hormone Urinalysis Orders: buPROPion, See Instructions, 1 tab(s) Oral at 3 pm, # 30 tab(s), Refills(s) 4, Pharmacy: [facility] 158.2, cm, 06/30/20 10:05:00 EDT, Height/Length Dosing, 61, kg, 06/30/20 10:05:00 EDT, Weight Dosing buPROPion, 300 mg = 1 tab(s), Oral, Daily, # 30 tab(s), Refills(s) 4, [facility]: [facility] 158.2, cm, 06/30/20 10:05:00 EDT, Height/Length Dosing, 61, kg, 06/30/20 10:05:00 EDT, Weight Dosing lithium, See Instructions, take 1 tablet by mouth fam (more content not included)... Normal [facility] Comment on above: Result Comment: Elec tronically Signed By: NAFISA BERMAN, Lidia\.br\Date and Time Signed: 06/30/20 10:47 EDT Encounters Encounter Date Encounter Type Care Provider Facility Start: 11-12-2023 End: 11-12-2023 ambulatory KITTY ADKINS Not Available Start: 10-29-2023 End: 10-29-2023 ambulatory KITTY ADKINS Not Available Start: 09-13-2022 End: 09-13-[address] TONI STEVE Facility:[facility] Start: 08-31-2022 End: 09-01-2022 ambulatory PRECIOUS ADKINS Facility:[facility] Start: 08-31-2022 End: 09-01-[address] TONI STEVE Facility:[facility] Start: 07-10-2022 End: 07-10-2022 ambulatory PRECIOUS ADKINS Facility:[facility] Start: 07-03-2022 End: 07-03-[address] TONI STEVE Facility:[facility] Start: 06-20-2022 End: 06-21-[address] DUMONT MISC Facility:[facility] Start: 02-09-2022 End: 02-10-[address] DUMONT MISC Facility:[facility] Start: 01-04-[address] DUMONT MISC Facility :[facility] Payers Date Payer Category Payer Medicaid [id number] 1980 Unknown [id number] 2.16.84 [id number] 1980 Unknown [id number] 2.16.84 [id number] 1980 Unknown [id number] 2.16.84 [id number] 1980 Unknown [id number] 2.16.84 [id number] 1980 Unknown [id number] 2.16.84 [id number] 1980 Unknown [id number] 2.16.84 [id number] 1980 Unknown [id number] 2.16.84 [id number] 1980 Unknown [id number] 2.16.84 [id number] 1980 Unknown [id number] 2.16.84 [id number] 1959 Self-pay 1959 Unknown [id number] Clinical Note 08-11-2020 Note Date & Type Note Facility 08-11-2020 Note Ophthalmology Basics of Medication Management UNDERSTAND YOUR MEDICATIONS ? Read all of the labels and inserts that come with your medications. Review the information on this form often. ? Know what potential side effects to look for (for each medication). ? Know what each of your medications look like (by color, shape, size, stamp). If you are getting confused and having a hard time telling them apart, talk with your caregiver or pharmacist. They may be able to change the medication or help you to identify them more easily. ? Check with your pharmacist if you notice a difference in the size or color of your medication. ? Get all of your medications at one pharmacy. The pharmacist will have all of your information and understand possible drug interactions. ? Ask your caregiver questions about your prescriptions and any qdgo-hug-kvuugus medications, vitamins, herbal or dietary supplements that you take. TAKE YOUR MEDICATION SAFELY ? Take medications only as prescribed. ? Talk with your caregiver or pharmacist if some of your pills look the same and it is difficult to tell them apart. They can help you to recognize different medications. ? Never double up on your medication. ? Never take anyone else's medication or share your medications. ? Do not stop taking your medication(s) unless you have discussed it with your caregiver. ? Do not split, mash, or chew medications unless your caregiver tells you to do so. Tell your caregiver if you have trouble swallowing your medication(s). ? For liquid medications, make sure you use the dosing container provided to you. ? You may need to avoid alcohol or certain foods or liquids with one or more of your medications. Make sure you remember how to take each medication with some of the tools below. ORGANIZE YOUR MEDICATIONS ? Use a tool, such as a weekly pill box (available at your local pharmacy), written chart from your caregiver, notebook, binder, or your own calendar to organize your daily medications. Please note: if you are having trouble telling your different medications apart, keep them in the original bottles. ? Set cues or reminders for taking your medications. Use watch alarms, mobile device/phone calendar alarms, or sticky notes. ? More advanced medication management systems are also available. These offer weekly or monthly options complete with storage, alarms, and visual and audio prompts. ? Your system should help you to keep track of the: ? Name of medication and dose. ? Day. ? Time. ? Pill to take (by color, shape, size, or name/imprint). ? How to take it (with or without certain foods, on an empty stomach, with fluids etc.). ? Review your medication schedule with a family member or friend to help you. Other household members should understand your medications. ? If you are taking medications on an as needed basis such as those for nausea or pain, write down the name, dose, and time you took the medication so that you remember what you have taken. PLAN AHEAD FOR REFILLS AND TRAVEL ? Take your pill box, medications, and calendar system with you when you travel. ? Plan ahead for refills as to not run out of your medication(s). ? Always carry an updated list of your medications with you. If there is an emergency, a respondent can quickly see what medications you are taking. STORE AND DISCARD YOUR MEDICATIONS SAFELY ? Store medications in a cool, dry area away from light. (The bathroom is not a good place for storage because of heat and humidity.) ? Store your medications away from chemicals, pet medications, or other family member's medications. ? Keep medications out of children's reach, away from counters and bedside tables. Store them up high in cabinets or shelves. ? Check expiration dates regularly. ? Learn about the best way to dispose of each medication you take. Find out if your local government recycling program has a Medicine Take Back program for safe disposal. If not, some medications may be mixed with inedible substances and thrown away in the trash. Certain medications are to be flushed down the toilet. REMEMBER: ? Tell your caregiver if you experience side effects, new symptoms, or have other concerns. There may be dosing changes or alternative medications that would be better for you. ? Review your medications regularly with your caregiver. Check to see if you need to continue to take each medication, and discuss how well they are working. Medicines, diet, medical conditions, weight changes, and other habits can all affect how medicines work. PEDIATRIC CONSIDERATIONS If you are taking care of an infant or child who needs multiple medications, follow the tips above to organize a medication schedule and safely give and store medications. ?? ? Use positive reinforcement (singing, cuddling, reward) for your child to help him or her take necessary medications. ? Use only syringes, droppers, dosing spoons, or dosing cups provided by your caregiver or pharm (more content not included)... [facility] Clinical Note 06-30-2020 Note Date & Type Note Facility 06-30-2020 Note Ophthalmology Basics of Medication Management UNDERSTAND YOUR MEDICATIONS ? Read all of the labels and inserts that come with your medications. Review the information on this form often. ? Know what potential side effects to look for (for each medication). ? Know what each of your medications look like (by color, shape, size, stamp). If you are getting confused and having a hard time telling them apart, talk with your caregiver or pharmacist. They may be able to change the medication or help you to identify them more easily. ? Check with your pharmacist if you notice a difference in the size or color of your medication. ? Get all of your medications at one pharmacy. The pharmacist will have all of your information and understand possible drug interactions. ? Ask your caregiver questions about your prescriptions and any oyql-xax-jcxceqd medications, vitamins, herbal or dietary supplements that you take. TAKE YOUR MEDICATION SAFELY ? Take medications only as prescribed. ? Talk with your caregiver or pharmacist if some of your pills look the same and it is difficult to tell them apart. They can help you to recognize different medications. ? Never double up on your medication. ? Never take anyone else's medication or share your medications. ? Do not stop taking your medication(s) unless you have discussed it with your caregiver. ? Do not split, mash, or chew medications unless your caregiver tells you to do so. Tell your caregiver if you have trouble swallowing your medication(s). ? For liquid medications, make sure you use the dosing container provided to you. ? You may need to avoid alcohol or certain foods or liquids with one or more of your medications. Make sure you remember how to take each medication with some of the tools below. ORGANIZE YOUR MEDICATIONS ? Use a tool, such as a weekly pill box (available at your local pharmacy), written chart from your caregiver, notebook, binder, or your own calendar to organize your daily medications. Please note: if you are having trouble telling your different medications apart, keep them in the original bottles. ? Set cues or reminders for taking your medications. Use watch alarms, mobile device/phone calendar alarms, or sticky notes. ? More advanced medication management systems are also available. These offer weekly or monthly options complete with storage, alarms, and visual and audio prompts. ? Your system should help you to keep track of the: ? Name of medication and dose. ? Day. ? Time. ? Pill to take (by color, shape, size, or name/imprint). ? How to take it (with or without certain foods, on an empty stomach, with fluids etc.). ? Review your medication schedule with a family member or friend to help you. Other household members should understand your medications. ? If you are taking medications on an as needed basis such as those for nausea or pain, write down the name, dose, and time you took the medication so that you remember what you have taken. PLAN AHEAD FOR REFILLS AND TRAVEL ? Take your pill box, medications, and calendar system with you when you travel. ? Plan ahead for refills as to not run out of your medication(s). ? Always carry an updated list of your medications with you. If there is an emergency, a respondent can quickly see what medications you are taking. STORE AND DISCARD YOUR MEDICATIONS SAFELY ? Store medications in a cool, dry area away from light. (The bathroom is not a good place for storage because of heat and humidity.) ? Store your medications away from chemicals, pet medications, or other family member's medications. ? Keep medications out of children's reach, away from counters and bedside tables. Store them up high in cabinets or shelves. ? Check expiration dates regularly. ? Learn about the best way to dispose of each medication you take. Find out if your local government recycling program has a Medicine Take Back program for safe disposal. If not, some medications may be mixed with inedible substances and thrown away in the trash. Certain medications are to be flushed down the toilet. REMEMBER: ? Tell your caregiver if you experience side effects, new symptoms, or have other concerns. There may be dosing changes or alternative medications that would be better for you. ? Review your medications regularly with your caregiver. Check to see if you need to continue to take each medication, and discuss how well they are working. Medicines, diet, medical conditions, weight changes, and other habits can all affect how medicines work. PEDIATRIC CONSIDERATIONS If you are taking care of an infant or child who needs multiple medications, follow the tips above to organize a medication schedule and safely give and store medications. ?? ? Use positive reinforcement (singing, cuddling, reward) for your child to help him or her take necessary medications. ? Use only syringes, droppers, dosing spoons, or dosing cups provided by your caregiver or pharm (more content not included)... [facility] Summary Purpose Family History No Family History Records FoundNo Family History Records FoundNo Family History Records Found Advance Directives No Advanced Directives Records FoundNo Advanced Directives Records FoundNo Advanced Directives Records Found Additional Source Comments INFORMATION SOURCE (unrecogn ized section and content) DATE CREATED AUTHOR 03/08/2021 Jorge Puckett [facility] DATE CREATED AUTHOR AUTHOR'S ORGANIZ ATION 09/27/2022 [facility] DATE CREATED AUTHOR AUTHOR'S ORGANIZ ATION 11/13/2023 [facility] FOR RECORDS PERTAINING TO PATIENTS WHO ARE OR HAVE BEEN ENROLLED IN A CHEMICAL DEPENDENCY/SUBSTANCEABUSE PROGRAM, SOME INFORMATION MAY BE OMITTED. This clinical summary was aggregated from multiple sources. Caution should be exercised in using it in the provision of clinical care. This summary normalizes information from multiple sources, and as a consequence, information in this document may materially change the coding, format and clinical context of patient data. In addition, data may be omitted in some cases. CLINICAL DECISIONS SHOULD BE BASED ON THE PRIMARY CLINICAL RECORDS. [facility] [employer] provides no warranty or guarantee of the accuracy or completeness of information in this document.
== END 2023-11-19 13:50 | disposition home or self-care (01) ==
LOC: MAMMO 13:49
PROVIDERS: PCP Nurse Practitioner; Visit Provider Nurse Practitioner
DX: N60.91 Unspecified benign mammary dysplasia of right breast (principal); Z80.8 Family history of malignant neoplasm of other organs or systems
CPT/HCPCS: 76642; 77066; G0279

== ENCOUNTER 2024-03-20 09:59 | Outpatient (OUT) | payer MEDICAID, SELFPAY ==
--- NOTE | 2024-03-20 10:36 | ECG_ITS ---
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
--- NOTE | 2024-03-20 10:40 | PM.PRESUREVA ---
History of Present Illness History of Present Illness Chief complaint: Atypical Ductal Hyperplasia Narrative: Patient presents for preadmission testing. The patient reports an abnormal mammogram in the past, with a more recent abnormal ultrasound of her breast followed by an abnormal breast MRI and a breast biopsy. The patient states she did have an abnormality in the appearance of her right breast with some redness and nipple discharge. She denies any new changes at this time. Review of Systems ROS Narrative REVIEW OF SYSTEMS: Negative except as stated in HPI, ten or more systems reviewed. Constitutional: No fever, chills, weakness ENT: No sore throat or epistaxis Cardiovascular: No edema, chest pain, palpitations, or activity intolerance Respiratory: No shortness of breath, cough, or wheezing Musculoskeletal: No joint pain or swelling Gastrointestinal: No abdominal pain, constipation, diarrhea, or vomiting Genitourinary: No dysuria or hematuria Neurological: No numbness, tingling, weakness, or headache Psychiatric: No mood changes PFSH PFSH Medical History (Updated 03/20/24 @ 10:39 by Vanita Bauman NP) Rectal bleeding ?K62.5 - Hemorrhage of anus and rectum (ICD-10) Raynauds disease ?I73.00 - Raynaud's syndrome without gangrene (ICD-10) Psoriasis ?L40.9 - Psoriasis, unspecified (ICD-10) Hidradenitis ?L73.2 - Hidradenitis suppurativa (ICD-10) Fibrocystic breast ?N60.19 - Diffuse cystic mastopathy of unspecified breast (ICD-10) Extremely dense tissue of both breasts on mammography ?R92.343 - Mammographic extreme density, bilateral breasts (ICD-10) Cystic acne ?L70.0 - Acne vulgaris (ICD-10) Chronic fatigue ?R53.82 - Chronic fatigue, unspecified (ICD-10) Change in bowel habits ?R19.4 - Change in bowel habit (ICD-10) MRSA (methicillin resistant Staphylococcus aureus) ?A49.02 - Methicillin resistant Staphylococcus aureus infection, unspecified site (ICD-10) Atypical ductal hyperplasia of breast ?N60.99 - Unspecified benign mammary dysplasia of unspecified breast (ICD-10) Shoulder pain ?M25.519 - Pain in unspecified shoulder (ICD-10) PTSD (post-traumatic stress disorder) ?F43.10 - Post-traumatic stress disorder, unspecified (ICD-10) Panic attacks ?F41.0 - Panic disorder [episodic paroxysmal anxiety] (ICD-10) Bipolar disorder ?F31.9 - Bipolar disorder, unspecified (ICD-10) Depression ?F32.A - Depression, unspecified (ICD-10) Anxiety ?F41.9 - Anxiety disorder, unspecified (ICD-10) COVID-19 ?U07.1 - COVID-19 (ICD-10) Migraine ?G43.909 - Migraine, unspecified, not intractable, without status migrainosus (ICD-10) Heartburn ?R12 - Heartburn (ICD-10) Surgical History (Updated 03/20/24 @ 10:23 by Vanita Bauman NP) History of incision and drainage ?Z98.890 - Other specified postprocedural states (ICD-10) History of endometrial ablation ?Z98.890 - Other specified postprocedural states (ICD-10) History of breast biopsy ?Z98.890 - Other specified postprocedural states (ICD-10) Family History (Updated 03/20/24 @ 10:23 by Vanita Bauman NP) Other Family history of aneurysm Family history of brain cancer Family history of coronary artery disease Family history of heart disease Family history of hypertension Family history of kidney cancer Family history of myocardial infarction Family history of pancreatic cancer Family history of stroke Social History (Updated 03/20/24 @ 10:16 by Vanita Bauman NP) Within the past year, how often did you have a drink containing alcohol: never Score interpretation: A score less than 3 is consistent with normal alcohol consumption. 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 :[employer] Highest level of school completed/degree received: high school graduate Meds Home Medications and Allergies Home Medications ?Medication ?Instructions ?Recorded ?Confirmed ?Type aripiprazole 400 mg suspension, 400 mg IM Q28D 03/20/24 03/20/24 History extended rel.intramuscular syringe (Lisa Sheth) oxcarbazepine 150 mg tablet 150 mg PO BID 03/20/24 03/20/24 History propranolol 10 mg tablet 10 mg PO Q8H PRN anxiety 03/20/24 03/20/24 History sertraline 100 mg tablet 100 mg PO Q24H 03/20/24 03/20/24 History Allergies Allergy/AdvReac Type Severity Reaction Status Date / Time lamotrigine Allergy abscess Verified 03/20/24 10:12 Exam Narrative Exam Narrative: Constitutional: Awake, alert, comfortable, well-appearing, nontoxic, interactive, vital signs as charted Head: Normocephalic, atraumatic Neck: Supple, normal appearance, normal range of motion, no meningeal signs, no lymphadenopathy Respiratory: No respiratory distress, breath sounds clear Cardiovascular: Regular rate and rhythm, strong and regular heart tones Musculoskeletal: Normal gait, no swelling or edema Skin: No rashes or induration, no lesions, only visible skin inspected Neuro: No neurological deficits, normal sensation Psychiatric: Oriented ?3, normal affect Assessment and Plan Assessment and Plan (1) Atypical ductal hyperplasia of breast: Plan Needle localized lumpectomy right breast under anesthesia scheduled with Dr. Fish 04/01/2024.
== END 2024-03-20 10:00 | disposition home or self-care (01) ==
LOC: PST 09:59
PROVIDERS: PCP Nurse Practitioner; Visit Provider Surgery
DX: Z01.810 Encounter for preprocedural cardiovascular examination (principal); Z01.818 Encounter for other preprocedural examination; N60.99 Unspecified benign mammary dysplasia of unspecified breast
CPT/HCPCS: 93005; G0463

== ENCOUNTER → 2024-04-01 07:00 | Day surgery (SDC) | payer MEDICAID, SELFPAY ==
--- OUTSIDE RECORDS SUMMARY | 2024-04-01 07:03 | XMS_ITS | CCD ---
Author Organization [facility] Informat ion Partnership [facility] Care Team Providers Care Motion Picture Printer Name Role Phone AICHHOLZ, STEAMER GUM CANDY NORMA Admitting Unavailable AICHHOLZ, STEAMER GUM CANDY NORMA Attending Unavailable AICHHOLZ, STEAMER GUM CANDY NORMA Primary Care Unavailable AICHHOLZ, STEAMER GUM CANDY NORMA Consulting Unavailable KARASIK, DR MUÑOZ Admitting Unavailable KARASIK, DR MUÑOZ Attending Unavailable AICHHOLZ, STEAMER GUM CANDY NORMA Primary Care Unavailable KARASIK, DR MUÑOZ Consulting Unavailable BERCLAIR, DR MAIN Consulting Unavailable AICHHOLZ, STEAMER GUM CANDY NORMA Admitting Unavailable AICHHOLZ, STEAMER GUM CANDY NORMA Attending Unavailable AICHHOLZ, STEAMER GUM CANDY NORMA Primary Care Unavailable AICHHOLZ, STEAMER GUM CANDY NORMA Consulting Unavailable MISC, DR DUMONT Admitting Unavailable MISC, DR DUMONT Attending Unavailable AICHHOLZ, STEAMER GUM CANDY NORMA Primary Care Unavailable MISC, DR DUMONT Consulting Unavailable MISC, DR DUMONT Admitting Unavailable MISC, DR DUMONT Attending Unavailable AICHHOLZ, STEAMER GUM CANDY NORMA Primary Care Unavailable MISC, DR DUMONT Consulting Unavailable KARASIK, DR MUÑOZ Admitting Unavailable KARASIK, DR MUÑOZ Attending Unavailable AICHHOLZ, STEAMER GUM CANDY NORMA Primary Care Unavailable KARASIK, DR MUÑOZ Consulting Unavailable ZIEBER, DR PARVEEN Lopez Consulting Unavailable MISC, DR DUMONT Admitting Unavailable MISC, DR DUMONT Attending Unavailable AICHHOLZ, STEAMER GUM CANDY NORMA Primary Care Unavailable KARASIK, DR MUÑZO Admitting Unavailable KARASIK, DR MUÑOZ Attending Unavailable AICHHOLZ, STEAMER GUM CANDY NORMA Primary Care Unavailable KARASIK, DR MUÑOZ Consulting Unavailable Aichholz JIG AND FIXTURE BUILDER APPRENTICE, Norma Unavailable Farzad Lawler MD Primary Care Provider Makayla, Norma J Attending Unavailable Aichholz, Norma J Primary Care Unavailable Aichholz, Norma J Admitting Unavailable AICHHOLZ, NORMA J Primary Care Physician [phone] NORMA BENAVIDES Attending Unavailable NORMA BENAVIDES Attending Unavailable NORMA BENAVIDES Attending Unavailable Adarsh PICHARDO Attending Unavailable Adarsh PICHARDO Attending Unavailable Adarsh PICHARDO Attending Unavailable BEN PRABHAKAR CNP Primary Care Unavailable Дмитрий Cortes Attending Unavailable Allergies Allergy Classification Reported Allergen(s) Allergy Type Date of Onset Reaction(s) Facility (1 source) lamoTRIgine Drug Allergy [address] [facility] Repository (2 sources) Lamotrigine; Translations: [lamoTRIgine] Allergy to substance 3 [facility] (1 source) lamoTRIgine Drug Allergy 1 [facility] Repository (1 source) lamoTRIgine; Translations: [lamotrigine] Drug Allergy Cutaneous eruption (morphologic abnormality) [facility] (1 source) lamoTRIgine; Translations: [LaMICtal ODT] Drug Allergy [facility] Repository Medications Current Medications Medication Drug Class(es) Dates Sig (Normalized) Sig (Original) ARIPiprazole 15 mg oral tablet (2 sources) Atypical Antipsychotic Start: 10-15-2023 take 1 tablet by mouth at bedtime Abilify 15 mg Tab 15 mg = 1 tab(s), Oral, Bedtime, Refills(s) 0 Start Date: 11/27/23 Status: Ordered busPIRone hydrochloride 15 mg oral tablet (2 sources) Start: 10-15-2023 take 1 tablet by mouth twice daily busPIRone 15 mg Tab 15 mg = 1 tab(s), Oral, BID, Refills(s) 0 Start Date: 11/27/23 Status: Ordered OXcarbazepine 150 mg oral tablet (2 sources) Anti-epileptic Agent Start: 10-15-2023 take 1 tablet by mouth twice daily Trileptal 150 mg Tab 150 mg = 1 tab(s), Oral, BID, Refills(s) 0 Start Date: 11/27/23 Status: Ordered sertraline 100 mg oral tablet (2 sources) Serotonin Reuptake Inhibitor Start: 09-29-2023 take 1 tablet by mouth once daily Zoloft 100 mg Tab 100 mg = 1 tab(s), Oral, Daily, Refills(s) 0 Start Date: 11/27/23 Status: Ordered Problems Active Problems Problem Classification Problem Date Documented Date Episodic/Chronic Anxiety disorders (3 sources) Post-traumatic stress disorder, unspecified; Translations: [Generalized anxiety disorder] Onset: 2 11-17-2019 Chronic Gastrointestinal hemorrhage (2 sources) Rectal hemorrhage; Translations: [Hemorrhage of anus and rectum] Onset: 4 11-12-2023 Episodic Genitourinary symptoms and ill-defined conditions (1 source) Microscopic hematuria; Translations: [Other microscopic hematuria] Onset: 4 11-05-2023 Episodic Headache; including migraine (1 source) Migraine 03-02-2019 Chronic Immunizations and screening for infectious disease (1 source) Encounter for screening for human papillomavirus (HPV); Translations: [ENC SCREENING HUMAN PAPILLOMAVIRUS] Onset: 2 Episodic Malaise and fatigue (2 sources) Chronic fatigue syndrome; Translations: [Chronic fatigue syndrome] Onset: 4 10-29-2023 Chronic Mood disorders (6 sources) Bipolar disorder, current episode mixed, severe, without psychotic features; Translations: [Bipolar affective disorder, current episode mixed] Onset: 2 Chronic Mycoses (1 source) Candidiasis of vagina; Translations: [Vaginal yeast infection] Onset: 4 11-05-2023 Episodic Nonmalignant breast conditions (1 source) Fibrocystic disease of breast 11-27-2023 Chronic Nonmalignant breast conditions (13 sources) Mammographic microcalcification found on diagnostic imaging of breast; Translations: [Hypertrophy of breast] Onset: 2 Episodic Other circulatory disease (2 sources) Raynaud's disease; Translations: [Raynaud's syndrome without gangrene] Onset: 4 10-29-2023 Chronic Other inflammatory condition of skin (1 source) Psoriasis 11-27-2023 Chronic Other nutritional; endocrine; and metabolic disorders (5 sources) Polydipsia; Translations: [POLYDIPSIA] Onset: 2 Episodic Other nutritional; endocrine; and metabolic disorders (1 source) Unintentional weight loss; Translations: [Abnormal weight loss] Onset: 4 10-29-2023 Episodic Other screening for suspected conditions (not mental disorders or infectious disease) (7 sources) Encounter for screening for malignant neoplasm of cervix; Translations: [Mammography abnormal] Onset: 2 Episodic Other skin disorders (1 source) Cystic acne 11-27-2023 Episodic Other skin disorders (1 source) Hidradenitis 11-27-2023 Episodic Schizophrenia and other psychotic disorders (1 source) Unspecified psychosis not due to a substance or known physiological condition; Translations: [UNS PSYCHOS D/O NOT SUBSTNC/PHYSIOL] Onset: 2 Chronic Skin and subcutaneous tissue infections (5 sources) Local infection of the skin and subcutaneous tissue, unspecified; Translations: [Cutaneous abscess, unspecified] Onset: 2 Episodic Unclassified (1 source) Unspecified benign mammary dysplasia of right breast; Translations: [Unspecified benign mammary dysplasia of right breast] Onset: 4 Unclassified (1 source) Body mass index 20-24 - normal 01-31-2024 Past or Other Problems Problem Classification Problem Date Documented Da te Episodic/Chronic Other aftercare (1 source) Other intermediate (current) drug therapy; Translations: [OTH 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 THERAPY] Onset: 06-22-2022 Episodic Residual codes; unclassified (1 source) Anterograde amnesia; Translations: [ANTEROGRADE AMNESIA] Onset: 06-22-2022 Episodic Results Test Name Value Interpretation Reference Range Facility Insurance Correspondenceon 0 03-18-2024 Insurance Correspondence [id number]#1.00 TIFF Normal [facility] Consent for Procedure/Surger yon 02-03-2024 Consent for Procedure/Surgery [id number] IFF Normal [facility] Consent for Procedure/Surgery [id number] IFF Normal [facility] Ambulatory Visit Summaryon 0 01-31-2024 Ambulatory Visit Summary ARIK ALEXANDER :1980 Visit Date:01/31/2024 Ambulatory Visit Instructions Your Care Team Attending Physician - KYLEE BERMAN, Adarsh Lopez Primary Care Physician - NORMA BENAVIDES CNP This Is Your Medications List Contact prescribing physician if questions or concerns aripiprazole (Abilify 15 mg Tab) busPIRone (busPIRone 15 mg Tab) oxcarbazepine (Trileptal 150 mg Tab) sertraline (Zoloft 100 mg Tab) Procedures Performed Biopsy of breast, EA - Endometrial ablation, Insertion of IUD. Discharge Vitals Heart Rate (Peripheral) 94 Respiratory Rate 16 Blood Pressure 112/74 Height 158.75 cm Height 62 in Weight 62.3 kg Weight 137.06 lb BMI 24.72 Medications What How Much When Instructions Unchanged aripiprazole (Abilify 15 mg Tab) 1 Tablets By Mouth At bedtime Contact prescribing physician if questions or concerns Unchanged busPIRone (busPIRone 15 mg Tab) 1 Tablets By Mouth 2 times a day Contact prescribing physician if questions or concerns Unchanged oxcarbazepine (Trileptal 150 mg Tab) 1 Tablets By Mouth 2 times a day Contact prescribing physician if questions or concerns Unchanged sertraline (Zoloft 100 mg Tab) 1 Tablets By Mouth Every day Contact prescribing physician if questions or concerns Allergies lamoTRIgine (Rash) Problems Ongoing - Any problem that you are currently receiving treatment for. Anxiety Atypical ductal hyperplasia of right breast BMI 24.0-24.9, adult Chronic fatigue syndrome Cystic acne Fibrocystic breast Hidradenitis Migraine Mild depressed bipolar I disorder Psoriasis Raynaud disease Rectal bleeding Patient Survey You may receive a survey via text or e-mail asking about your office visit. Please share your experience with us by completing your survey. We appreciate your feedback and thank you for choosing us for your care. Normal [facility] RAD - MRI Reporton RAD - MRI Report [id number] IFF Normal [facility] MR breast BI wo/w con CADon 01-07-2024 MR breast BI wo/w con CAD [facility] [place] [address] MRI Report Signed Patient: Arik Alexander MR#: [id number] : 1980 Acct:[id number] Age/Sex: 43 / F ADM Date: 01/07/24 Loc: MR Room: Type: [facility] Attending Dr: Norma Benavides Copies to: CAMRYN Echavarria Ordering Provider: CAMRYN Echavarria Date of Service: 01/07/24 MR/MR breast BI wo/w con CAD: N60.99,R92.8 BILATERAL BREAST MRI WITHOUT AND WITH INTRAVENOUS CONTRAST CLINICAL HISTORY: Atypical hyperplasia of both breasts. COMPARISON: Diagnostic mammogram and ultrasound 11/19/2023 TECHNIQUE: Multisequence, multiplanar imaging of the breasts were obtained before and after the use of IV contrast. All imaged data was reviewed using the [employer] system. The postcontrast images were subtracted and CAD mapping of the enhancement kinetics was performed. Kinetic curves were generated. 2D and 3D MIP images were also reviewed. FINDINGS: The breasts are composed of heterogeneously dense fibroglandular tissue with moderate background parenchymal enhancement. No suspicious masslike or nonmasslike enhancement within either breast. Multiple small cysts are noted within both breasts. No chest wall abnormality is seen. No suspicious intramammary or axillary lymph nodes. Presumed Blooming artifact is seen involving a biopsy clip involving the upper outer quadrant of the right breast without surrounding suspicious enhancement. MR/MR breast BI wo/w con CAD IMPRESSION: NO MRI EVIDENCE OF MALIGNANCY. GIVEN THE HISTORY AND PREVIOUSLY REPORTED FINDINGS ON THE MAMMOGRAM, EXCISIONAL BIOPSY OF THE RIGHT BREAST SHOULD BE CONTEMPLATED. RESULT CODE: 2 Benign Findings(s) FOLLOW UP: IMM Impression dictated by: Lamont Daniel Jr., D.OChuck01/08/2024 9:48 AM Dictation Location: [place] [address] Transcribed By: [facility] 01/08/24947 Dictated By: Lamont Daniel Jr, DO 01/07/24 1530 Signed By: 01/08/2448 [facility] Outside Mammographyon 2023 Outside Mammography [id number] IFF Normal [facility] Physician Referralon 024 Physician Referral [id number] FF Normal [facility] Physician Referralon 024 Physician Referral [id number] IFF Normal [facility] MAMMO POST BIOPSY RIGHTon MAMMO POST BIOPSY RIGHT Patient: ARIK ALEXANDER Exam Date: 09/13/2022 : 1980 Gender:F Ordering : DR TONI STEVE . Admission #: [id number] Family : Order #: [id number] CLICK HERE TO VIEW EXAM This report includes an Addendum and supersedes previous reports for this exam. RADIOLOGY REPORT PROCEDURE: MAMMOGRAM POST BIOPSY IMAGES COMPARISON: STEREO CORE NDL W CLIP RT, 09/13/2022. [...] M.D. on 09/13/2022 at 15:27 ADDENDUM: COMPARISON: MAMM DIAGNOSTIC 3D GREGG CAD, 08/31/2022. FINDINGS: DIAGNOSTIC CATEGORY 3--PROBABLY BENIGN FINDING. THE FOLLOWING FINDING(S) HAS A HIGH PROBABILITY OF A BENIGN ETIOLOGY: RECOMMENDATIONS: SURGICAL CONSULTATION. SHORT TERM FOLLOW-UP DIAGNOSTIC MAMMOGRAM RIGHT BREAST IN 6 MONTHS. Dictated by: Parveen Peralta M.D. on 09/25/2022 at 12:23 Approved by: Parveen Peralta M.D. on 09/25/2022 at 12:[address] [facility] MG STEREO CORE NDL W CLIP RT on 09-13-2022 MG STEREO CORE NDL W CLIP RT Patient: ARIK ALEXANDER Exam Date: 09/13/2022 : 1980 Gender:F Ordering : DR TONI STEVE . Admission #: [id number] Family : Order #: [id number] CLICK HERE TO VIEW EXAM This report includes an Addendum and supersedes previous reports for this exam. RADIOLOGY REPORT PROCEDURE: MAMMOGRAM STEREO CORE MARILY WITH CLIP RIGHT COMPARISON: MG MAMM DIAGNOSTIC 3D GREGG CAD, 08/31/2022. MG MAMM GREGG DIAG W CAD DIG, 01/02/2016. US BREAST GREGG LIMITED, 08/31/2022. INDICATIONS: Microcalcifications of [...] M.D. on 09/25/2022 at 12:23 Normal [facility] HIV 1 AND 2 WITH REFLEXon HIV Screen 4th Generation wRfx Non-Reactive Normal Non Reactive [facility] Comment on above: Result Comment: HIV Negative HIV-1/HIV-2 antibodies and HIV-1 p24 antigen were NOT detected. There is no laboratory evidence of HIV infection. Performed By: #### H IV12 #### [facility] [address] [place] [address] Dr. Francisca Henderson RPR QUANTon 09-02-2022 Rapid Plasma Reagin, Quant Non-Reactive Normal NonRea<1:1 [facility] Comment on above: Result Comment: Briseida noguera Note: This test does not meet current guidelines for screening and diagnosis of syphilis. This test is intended for following treatment response in patients being treated for syphilis infection. To screen for syphilis infection, a reflex cascade that includes both RPR and a treponema-specific assay should be utilized, such as Treponema pallidum (Syphilis) Screening [place] (348930) or Rapid Plasma Reagin (RPR) Test With Reflex to Quantitative RPR and Confirmatory Treponema pallidum Antibodies (342612). Performed By: #### R PRQ ####[facility] [address] [place] [address]Dr. Francisca Henderson CBC AUTO DIFFon 08-31-2022 BASO # 0.1 103/ul Normal 0.0-0.[address] [facility] Comment on above: Performed By: #### C BC #### [facility] [address] [place] [address] [address] Francisca Henderson Basophils/100 WBC (Bld) 1.1 % Normal 0.2-2.0 [facility] Comment on above: Performed By: #### C BC #### [facility] [address] [place] [address] Dr. Francisca Henderson EO # 0.3 103/ul Normal 0.0-0.7 [facility] Comment on above: Performed By: #### C BC #### [facility] [address] [place] [address] [address] Francisca Henderson Eosinophils/100 WBC (Bld) 2.8 % Normal 0.9-7.0 [facility] Comment on above: Performed By: #### C BC #### [facility] [address] [place] [address] [address] Francisca Henderson Erythrocyte distribution width (RBC) [Ratio] 12.3 % Normal 11.0-15.[address] [facility] Comment on above: Performed By: #### C BC #### [facility] [address] [place] [address] [address] Francisca Henderson Hematocrit (Bld) [Volume fraction] 39.4 % Normal 36.0-48.[address] [facility] Comment on above: Performed By: #### C BC #### [facility] [address] [place] [address] Dr. Francisca Henderson Hemoglobin (Bld) [Mass/Vol] 12.8 g/dL Normal 12.0-16.0 [facility] Comment on above: Performed By: #### C BC #### [facility] [address] [place] [address] Dr. Francisca Hendreson IG # 0.03 10e3/ul Normal 0.00-0.[address] [facility] Comment on above: Performed By: #### C BC #### [facility] [address] [place] [address] Dr. Francisca Henderson IG % 0.3 % Normal 0.0-0.[address] [facility] Comment on above: Performed By: #### C BC #### [facility] [address] [place] [address] Dr. Francisca Henderson LYMPH # 2.6 103/ul Normal 1.2-3.[address] [facility] Comment on above: Performed By: #### C BC #### [facility] [address] [place] [address] Dr. Francisca Henderson Lymphocytes/100 WBC (Bld) 29.1 % Normal 20.5-60.0 [facility] Comment on above: Performed By: #### C BC #### [facility] [address] [place] [address] Dr. Francisca Henderson MANUAL DIFF REQ NO Normal [facility] Comment on above: Performed By: #### C BC #### [facility] [address] [place] [address] Dr. Francisca Henderson MCH (RBC) [Entitic mass] 29.6 pg Normal 26.7-34.[address] [facility] Comment on above: Performed By: #### C BC #### [facility] [address] [place] [address] Dr. Francisca Henderson MCHC (RBC) [Mass/Vol] 32.5 g/dL Normal 29.9-35.[address] [facility] Comment on above: Performed By: #### C BC #### [facility] [address] [place] [address] [address] Francisca Henderson MCV (RBC) [Entitic vol] 91.0 fL Normal 81.0-99.[address] [facility] Comment on above: Performed By: #### C BC #### [facility] [address] [place] [address] [address] Francisca Henderson MONO # 0.5 103/ul Normal 0.3-0.[address] [facility] Comment on above: Performed By: #### C BC #### [facility] [address] [place] [address] Dr. Francisca Henderson Monocytes/100 WBC (Bld) 5.3 % Normal 1.7-12.[address] [facility] Comment on above: Performed By: #### C BC #### [facility] [address] [place] [address] [address] Francisca Henderson NEUT # 5.4 103/ul Normal 1.4-6.[address] [facility] Comment on above: Performed By: #### C BC #### [facility] [address] [place] [address] Dr. Francisca Henderson Neutrophils/100 WBC (Bld) 61.4 % Normal 43.0-75.[address] [facility] Comment on above: Performed By: #### C BC #### [facility] [address] [address] [address] Francisca Henderson Platelet mean volume (Bld) [Entitic vol] 8.8 fL Critically low 9.5-13.[address] [facility] Comment on above: Performed By: #### C BC #### [facility] [address] [place] [address] Dr. Francisca Henderson PLT 451 103/ul Critically high 150-450 [facility] Comment on above: Performed By: #### C BC #### [facility] [address] [place] [address] Dr. Francisca Henderson RBC 4.33 106/ul Normal 4.20-5.[address] [facility] Comment on above: Performed By: #### C BC #### [facility] [address] [place], [place] [address] Dr. Francisca Henderson WBC 8.8 103/ul Normal 4.0-11.[address] [facility] Comment on above: Performed By: #### C BC #### [facility] [address] [place], [place] [address] Dr. Francisca Henderson MG MAMM DIAGNOSTIC 3D GREGG CA Don 08-31-2022 MG MAMM DIAGNOSTIC 3D GREGG CAD Patient: ARIK ALEXANDER Exam Date: 08/31/2022 : 1980 Gender:F Ordering : DR TONI STEVE . Admission #: [id number] Family : Order #: [id number] CLICK HERE TO VIEW EXAM RADIOLOGY REPORT [...] brain cancer at age 74. LOCATION: [facility] BREAST COMPOSITION: Extremely dense, which lowers [...] Nieves MD on 08/31/2022 at 15:[address] [facility] PROF 14(COMP METB)on 022 Albumin [Mass/Vol] 3.8 g/dL Normal 3.4-5.0 [facility] Comment on above: Performed By: #### C MP #### [facility] [address] [place] [address] Dr. Francisca Henderson Albumin/Globulin [Mass ratio] 1.0 {ratio} Normal [facility] Comment on above: Performed By: #### C MP #### [facility] [address] [place] [address] Dr. Francisca Henderson ALP [Catalytic activity/Vol] 89 U/L Normal 46-[address] [facility] Comment on above: Performed By: #### C MP #### [facility] [address] [place] [address] Dr. Francisca Henderson ALT [Catalytic activity/Vol] 18 U/L Normal 14-[address] [facility] Comment on above: Performed By: #### C MP #### [facility] [address] [place] [address] Dr. Francisca Henderson Anion gap [Moles/Vol] 6.3 mmol/L Normal [facility] Comment on above: Performed By: #### C MP #### [facility] [address] [place] [address] Dr. Francisca Henderson AST [Catalytic activity/Vol] 16 U/L Normal 15-[address] [facility] Comment on above: Performed By: #### C MP #### [facility] [address] [place] [address] Dr. Francisca Henderson Bilirubin [Mass/Vol] 0.2 mg/dL Normal 0.2-1.[address] [facility] Comment on above: Performed By: #### C MP #### [facility] [address] [place] [address] Dr. Francisca Henderson Calcium [Mass/Vol] 9.4 mg/dL Normal 8.5-10.1 [facility] [place] [facility] Comment on above: Performed By: #### C MP #### [facility] [address] [place] [address] [address] Francisca Henderson Chloride [Moles/Vol] 105 mmol/L Normal 98-[address] [facility] Comment on above: Performed By: #### C MP #### [facility] [address] [place] [address] Dr. Francisca Henderson CO2 [Moles/Vol] 29.1 mmol/L Normal 21.0-32.0 [facility] Comment on above: Performed By: #### C MP #### [facility] [address] [place] [address] Dr. Francisca Henderson Creatinine [Mass/Vol] 0.99 mg/dL Normal 0.55-1.[address] [facility] Comment on above: Performed By: #### C MP #### [facility] [address] [place] [address] Dr. Francisca Henderson EGFR-AF MONGOLIAN >60 Normal >=60 [facility] Comment on above: Performed By: #### C MP #### [facility] [address] [place] [address] Dr. Francisca Henderson EGFR-NON AF MONGOLIAN >60 Normal >=60 [facility] Comment on above: Performed By: #### C MP #### [facility] [address] [place] [address] Dr. Francisca Henderson Globulin (S) [Mass/Vol] 3.7 g/dL Normal [facility] Comment on above: Performed By: #### C MP #### [facility] [address] [place] [address] Dr. Francisca Henderson Glucose [Mass/Vol] 87 mg/dL Normal 74-106 [facility] Comment on above: Performed By: #### C MP #### [facility] [address] [place] [address] Dr. Francisca Henderson Potassium [Moles/Vol] 4.4 mmol/L Normal 3.5-5.[address] [facility] Comment on above: Performed By: #### C MP #### [facility] [address] [place] [address] Dr. Francisca Henderson Protein [Mass/Vol] 7.5 g/dL Normal 6.4-8.2 [facility] Comment on above: Performed By: #### C MP #### [facility] [address] [address] [address] Francisca Henderson Sodium [Moles/Vol] 136 mmol/L Normal 136-145 [facility] Comment on above: Performed By: #### C MP #### [facility] [address] [address] [address] Francisca Henderson Urea nitrogen [Mass/Vol] 15.0 mg/dL Normal 7.0-18.[address] [facility] Comment on above: Performed By: #### C MP #### [facility] [address] [address] [address] Francisca Henderson Urea nitrogen/Creatinine [Mass ratio] 15.2 mg/mg Normal [facility] Comment on above: Performed By: #### C MP #### [facility] [address] [address] [address] Francisca Henderson SED RATE [facility] 2021 SED RATE 24 mm/hr Critically high <=[address] [facility] Comment on above: Performed By: #### S EDR #### [facility] [address] [place] [address] Dr. Francisca Henderson US BREAST GREGG LIMITEDon 11-0 BREAST GREGG LIMITED Patient: ARIK ALEXANDER Exam Date: 08/31/2022 : 1980 Gender:F Ordering : DR TONI STEVE . Admission #: [id number] Family : Order #: [id number] CLICK HERE TO VIEW EXAM RADIOLOGY REPORT [...] brain cancer at age 74. LOCATION: [facility] BREAST COMPOSITION: Extremely dense, which lowers [...] MD on 08/31/2022 at 15:27 Approved by: Kmuar Nieves MD on 08/31/2022 at 15:[address] [facility] CULTURE WOUNDon 07-12-2022 CULTURE WOUND Culture [...] S F Oxacillin >=4 R F Normal [facility] Comment on above: Performed By: #### W OUNDCX ####[facility] [address] [place], [place] [address]AuChuck Francisca Santiago PAP ACOG PANEL 2: 30 to 65on 07-09-2022 . . Normal [facility] Comment on above: Result Comment: Perf ormed at: WB Performed By: #### [id number] ####[facility] [address] [id number]. Francisca Henderson Age Gdln ACOG Testing 30-[address] [facility] Comment on above: Performed By: #### 4 [id number] ####[facility] [address] [id number][address] Francisca Henderson DIAGNOSIS: Comment Normal [facility] Comment on above: Result Comment: NEGA TIVE FOR INTRAEPITHELIAL LESION OR MALIGNANCY. Performed at: WB Performed By: #### [id number] ####[facility] [address] [id number]. Francisca Henderson HPV Aptima Negative Normal Negative [facility] Comment on above: Result Comment: This nucleic acid amplification test detects fourteen high-risk HPV types (16,18,31,33,35,39,45,51,52,56,58,59,66,68) without differentiation. Performed at: =G Performed By: #### 4 [id number] ####[facility] [address] [id number]. Francisca Henderson Methodology: Comment Normal [facility] Comment on above: Result Comment: This liquid based ThinPrep(R) pap test was screened with the use of an image guided system. Performed at: WB Performed By: #### 4 [id number] ####[facility] [address] [id number]. Francisca Henderson Note: Comment Normal [facility] Comment on above: Result Comment: The Pap smear is a screening test designed to aid in the detection of premalignant and malignant conditions of the uterine cervix. It is not a diagnostic procedure and should not be used as the sole means of detecting cervical cancer. Both false-positive and false-negative reports do occur. . Performed at: WB Performed By: #### 4 [id number] ####[facility] [address] [id number]. Francisca Henderson Performed by: Comment Normal [facility] Comment on above: Result Comment: Pamela Yepez, Gas Welding Machine Operator (ASCP) Performed at: WB Performed By: #### 4 [id number] ####[facility] [address] [address]Dr. Francisca Henderson Specimen adequacy: Comment Normal [facility] [place] [facility] Comment on above: Result Comment: Sati sfactory for evaluation. Endocervical and/or squamous metaplastic cells (endocervical component) are present. Performed at: WB Performed By: #### 4 [id number] ####[facility] [address] [address]DrChuck Henderson LITHIUMon 06-21-2022 [place] (Eskalith(R)), Serum 1.3 mmol/L Invalid Interpretation Code 0.5-1.[address] [facility] Comment on above: Result Comment: Plas ma concentration of 0.5 - 0.8 mmol/L are advised for long-term use; concentrations of up to 1.2 mmol/L may be necessary during acute treatment. Detection Limit = 0.1 <0.1 indicates None Detected Patient drug level exceeds published reference range. Evaluate clinically for signs of potential toxicity. Performed By: #### L ITHIUM ####[facility] [address] [address]DrChuck Henderson ELECTROLYTESon 06-20-2022 Anion gap [Moles/Vol] 11.8 mmol/L Normal [facility] Comment on above: Performed By: #### E LEC #### [facility] [address] [place] [address] Dr. Francisca Henderson Chloride [Moles/Vol] 100 mmol/L Normal 98-[address] [facility] Comment on above: Performed By: #### E LEC #### [facility] [address] [place] [address] Dr. Francisca Henderson CO2 [Moles/Vol] 28.4 mmol/L Normal 21.0-32.0 [facility] Comment on above: Performed By: #### E LEC #### [facility] [address] [place] [address] Dr. Francisca Henderson Potassium [Moles/Vol] 4.2 mmol/L Normal 3.5-5.[address] [facility] Comment on above: Performed By: #### E LEC #### [facility] [address] [place] [address] Dr. Francisca Henderson Sodium [Moles/Vol] 136 mmol/L Normal 136-145 [facility] [place] [facility] Comment on above: Performed By: #### E LEC #### [facility] [address] [address] [address] Francisca Henderson LITHIUMon 02-10-2022 [place] (Eskalith(R)), Serum 0.4 mmol/L Critically low 0.5-1.2 [facility] Comment on above: Result Comment: Plas ma concentration of 0.5 - 0.8 mmol/L are advised for long-term use; concentrations of up to 1.2 mmol/L may be necessary during acute treatment. Detection Limit = 0.1 <0.1 indicates None Detected Performed By: #### L ITHIUM #### [facility] [address] [place] [address] Dr. Francisca Henderson ELECTROLYTESon 02-09-2022 Anion gap [Moles/Vol] 10.1 mmol/L Normal [facility] Comment on above: Performed By: #### E LEC #### [facility] [address] [place] [address] Dr. Francisca Henderson Chloride [Moles/Vol] 103 mmol/L Normal 98-107 [facility] Comment on above: Performed By: #### E LEC #### [facility] [address] [place] [address] Dr. Francisca Henderson CO2 [Moles/Vol] 29.3 mmol/L Normal 22.0-30.0 [facility] Comment on above: Performed By: #### E LEC #### [facility] [address] [place] [address] Dr. Francisca Henderson Potassium [Moles/Vol] 4.4 mmol/L Normal 3.4-5.0 [facility] Comment on above: Performed By: #### E LEC #### [facility] [address] [place] [address] Dr. Francisca Henderson Sodium [Moles/Vol] 138 mmol/L Normal 137-145 [facility] [place] [facility] Comment on above: Performed By: #### E LEC #### [facility] [address] [place] [address] Dr. Francisca Henderson Vital Signs Date Time Vital Sign Value Performing Clinician Lukas aragon 01-31-2024 14:30-0400 Blood Pressure Location Adarsh NILL [facility] 01-31-2024 14:30-0400 Diastolic blood pressure 74 mm[Hg] Adarsh NILL [facility] 01-31-2024 14:30-0400 Heart rate 94 /min Adarsh NILL [facility] 01-31-2024 14:30-0400 Respiratory rate 16 /min Adarsh NILL [facility] 01-31-2024 14:30-0400 Systolic blood pressure 112 mm[Hg] Adarsh NILL [facility] Encounters Encounter Date Encounter Type Care Provider Facility Start: 04-07-2024 ambulatory Дмитрий Naylor y:[facility] Start: 02-18-2024 End: 02-18-2024 ambulatory NORMA BENAVIDES Not Available Start: 01-31-2024 End: 02-01-2024 ambulatory Adarsh PICHARDO Facility:[facility] Start: 01-31-2024 End: 01-31-2024 Patient encounter procedure Adarsh R NILL [facility] Start: 01-07-2024 End: 01-07-2024 ambulatory Nomra Benavides Facility:[facility] Start: 12-20-2023 ambulatory Adarsh R NILL Facility :[facility] Start: 12-02-2023 Orders Only Norma Benavides JIG AND FIXTURE BUILDER APPRENTICE Work Phone: [facility] Comment on above: Atypical hyperplasia of breast (Primary Dx); Abnormal mammogram of right breast Start: 11-14-2023 ambulatory BEN PRABHAKAR CNP Facility: [facility] Start: 11-12-2023 End: 11-12-2023 ambulatory NORMA MAKAYLA Not Available Start: 10-29-2023 End: 10-29-2023 ambulatory NORMA MAKAYLA Not Available Start: 09-13-2022 End: 09-13-[address] TONI STEVE Facility:[facility] Start: 08-31-2022 End: 09-01-2022 ambulatory PRECIOUS BENAVIDES Facility:[facility] Start: 08-31-2022 End: 09-01-[address] TONI STEVE Facility:[facility] Start: 07-10-2022 End: 07-10-2022 ambulatory PRECIOUS BENAVIDES Facility:[facility] Start: 07-03-2022 End: 07-03-[address] TONI STEVE Facility:[facility] Start: 06-20-2022 End: 06-21-[address] DOCTOR LANIER Facility:[facility] Start: 02-09-2022 End: 02-10-[address] DOCTOR LANIER Facility:[facility] Start: 01-04-[address] DOCTOR LANIER Facility :[facility] Procedures Date Procedure Procedure Detail Performing Clinician Start: 11-19-2023 Mammography Norma Sharma manan J[employer] AND FIXTURE BUILDER APPRENTICE Work Phone: Start: 07-03-2022 Microscopic observat ion [Identifier] in Cervix by Cyto stain Norma Makayla JIG AND FIXTURE BUILDER APPRENTICE Work Phone: Biopsy of breast Adarsh Garcia Endometrial ablation Adarsh PICHARDO Insertion of intraut erine contraceptive device Adarsh PICHARDO Plan of Treatment Date Care Activity Detail Author Start: 07-03-2025 Screening for malign ant neoplasm of cervix [facility] Start: 11-19-2024 Screening for malign ant neoplasm of breast Mammogram [facility] Start: 04-26-2024 Influenza vaccination Influenza Vacc ine (#1) [facility] Comment on above: Postponed from 06/28 (Patient Refused) Start: 12-25-2023 End: 12-25-2023 Patient encounter procedure 12/25/2023 1:40 PM EST Office Visit [facility] [address] [place] [address] Norma Benavides, GISELE [address] [place] [address] [facility] Start: 12-02-2023 End: 01-30-2025 MR Breast - left WO and W contrast IV Left breast MR with and without IV contrast Imaging Routine Atypical hyperplasia of breast Abnormal mammogram of right breast Expected: 12/02/2023 (Approximate), Expires: 01/30/2025 [facility] Work Phone: Comment on above: Expected: 12/02/2023 (Approximate), Expires: 01/30/2025 Start: 12-02-2023 End: 01-30-2025 MR Breast - right WO and W contrast IV Right breast MR with and without IV contrast Imaging Routine Atypical hyperplasia of breast Abnormal mammogram of right breast Expected: 12/02/2023 (Approximate), Expires: 01/30/2025 [facility] Comment on above: Expected: 12/02/2023 (Approximate), Expires: 01/30/2025 Start: 2010 Screening for malign ant neoplasm of cervix HPV/Cotest [facility] Immunizations Immunization Date Immunization Notes Care Provider Fa [facility] 09-05-2022 SARS-CoV-2 (COVID-19 ) [id number] Adarsh PICHARDO [facility] 10-01-2021 SARS-CoV-2 (COVID-19 ) mRNA-1273 vaccine Adarsh ADAMSL [facility] 08-30-2021 SARS-CoV-2 (COVID-19 ) mRNA-1273 vaccine Adarsh NILL [facility] 08-25-2020 influenza virus vaccine, unspecified formulation Norma Benavides NP Work Phone: [facility] Healthcare Payers Date Payer Category Payer Medicaid [place] [employer] [id number] 2022-Present [address] [place] [address] [id number] 2022 Medicaid [id number] 1980 Unknown [id number] [id number] 1980 Unknown [id number] 2.16.840.1.295484.3.579.2.593 1980 Unknown [id number] 2.16.840.1.580971.3.579.2.593 1980 Unknown [id number] 2.16.840.1.983900.3.579.2.593 1980 Unknown [id number] 2.16.840.1.760281.3.579.2.593 1980 Unknown [id number] 2.16.840.1.323383.3.579.2.593 1980 Unknown [id number] 2.16.840.1.755360.3.579.2.593 1980 Unknown [id number] 2.16.840.1.977125.3.579.2.593 1980 Unknown [id number] 2.16.840.1.429794.3.579.2.1259 1980 Unknown [id number] 2.16.840.1.615357.3.579.2.1259 1980 Unknown [id number] 2.16.840.1.672783.3.579.2.727 1980 Unknown [id number] 2.16.840.1.131386.3.579.2.727 1980 Unknown [id number] 2.16.840.1.350752.3.579.2.727 1980 Unknown [id number] 2.16.840.1.182529.3.579.2.727 1959 Self-pay 1959 Unknown [id number] Unknown [id number] [id number] Social History Date Type Detail Facility Start: 10-27-2023 End: 01-31-2024 Tobacco smoking status NHIS [facility]smoker [facility] History of tobacco use Current smoker [facility] History of tobacco use Cigarette Smoker [facility] Start: 11-12-2023 Alcohol intake Ex-drinker (finding) [facility] Start: 10-28-2023 End: 10-29-2023 History of Social function [facility] Start: 10-28-2023 End: 10-29-2023 Humiliation, Afraid, Rape, and Kick questionnaire [HARK] [facility] Within the last year , have you been afraid of your partner or ex-partner? Patient refused [facility] Within the last year , have you been kicked, hit, slapped, or otherwise physically hurt by your partner or ex-partner? No [facility] Do you belong to any clubs or organizations such as druze groups, unions, fraternal or athletic groups, or school groups? Yes [facility] Are you now , , , , never or living with a partner? Living with partner [facility] How often to you hav e a drink containing alcohol? Never [facility] How hard is it for y ou to pay for the very basics like food, housing, medical care, and heating Somewhat hard [facility] Do you feel stress - tense, restless, nervous, or anxious, or unable to sleep at night because your mind is troubled all the time - these days [OSQ] To some extent [facility] (I/We) worried wheth er (my/our) food would run out before (I/we) got money to buy more. Sometimes true [facility] Start: 10-27-2023 Tobacco Comment 6-10 cigarettes/day [facility] Start: 10-27-2023 Alcohol Comment caffeine 2-3 c ups per day [facility] Start: 1980 Sex Assigned At Not on file [facility] Functional Status Date Assessment Result Facility 01-31-2024 Functional Status N/A [facility] [address] Clinical Note 02-02-2024 Note Date & Type Note Facility 02-02-2024 Note Chief Complaint consultation for rectal bleeding and atypical ductal hyperplasia HPI Staff 43 year old female presents on consultation from Norma Benavides for rectal bleeding and atypical ductal hyperplasia right breast. Breast biopsy completed 08/2022 with confirmed atypical ductal hyperplasia and fibrocystic changes. Mammogram/US completed 10/2023 with cat. 0 and recommended MRI. Breast MRI completed 01/06-unremarkable. Reports frequent bilateral breast tenderness. Reports intermittent orange peel appearance to right breast and intermittent redness. Reports daily green nipple discharge for greater than one year. Reports she was experiencing daily rectal bleeding for several weeks. Reports this was with bowel movements only. Reports scant amount bright red blood with wiping. Denies rectal pain. Denies change in bowels at the time other than she was having more frequent bowel movements. Denies abdominal pain, nausea or vomiting. Never had colonoscopy in the past. No known family history of colon cancer. History of Present Illness 43 yo female with h/o migraines, Raynaud's disease, psoriasis, anxiety, bipolar d/o, referred for h/o right breast atypical ductal hyperplasia found on stereotactic right breast biopsy 08/2022 due to pleomorphic microcalcifications; recent screening mammograms with dense breast tissue, increased pleomorphic microcalcifications around previous bx site; recent MRI without suspicious lesions; no h/o hormone therapy, no fmhx of breast, ovarian or colon cancers, no fmhx of IBD; patient was also experiencing daily rectal bleeding, with bms, more frequent soft bms, several times per day, no staining, no hemorrhoid irritation, no abd or rectal pain; was not on asa or NSIADs at that time; bleeding has now improved; no abd operations or previous colonoscopy; no asa or NSAID use, no SBE prophylaxis; former smoker. Review of Systems PHQ Score Initial Depression Screen Score: 0 SCORE ROS - Provider Constitutional: no fever, no sweats, no weight loss. Eyes: no glasses, no blurred vision, no visual loss. ENMT: no dentures, no hoarseness, no swallowing difficulties, no hearing loss, no ear infection(s), no nose bleeds. Cardiovascular: normal blood pressure, no chest pain, regular heartbeat, no heart murmur. Respiratory: no shortness of breath, no cough, no asthma, no wheezing. Gastrointestinal: no nausea, no vomiting, no diarrhea, no constipation, no blood in stool, yes change in bowel habits, no abdominal pain, no hepatitis. Genitourinary: no kidney stones, no urine infection, no dysuria. Musculoskeletal: no pain, no weakness. Skin: no changing moles, no rash, no skin lumps. Neurologic: no seizures, no epilepsy, no headache. Psychiatric: no emotional or psychiatric problem. Heme/Lymph: no bleeding problems, no anemia, no blood clots, no transfusions. Allergy/Immunologic: no swollen lymph nodes/glands, no IV drug abuse. Other: Additional ROS info: Except as noted in the above Review of Systems and in the History of Present Illness, all other systems have been reviewed and are negative or noncontributory. Physical Exam Vitals & Measurements HR: 94(Peripheral) RR: 16 BP: 112/74 HT: 62 in HT: 158.75 cm WT: 62.3 kg WT: 137.06 lb BMI: 24.72 HEENT: normal conjunctiva, sclera clear, no scleral icterus, EOM intact, PERRLA. oral mucosa moist without lesions Neck: trachea midline , no mass, symmetric, no thyromegaly or nodules. no adenopathy Respiratory: lungs CTA, respirations non labored. Cardiovascular: regular rate and rhythm, no murmur, , no pedal edema or varicosities. Chest (Breasts): symmetric, no discharge, no palpable breast or axillary lumps, masses ; diffuse bilateral tenderness with areas of dense breast tissue, no dominate masses; no skin or nipple changes. Gastrointestinal: soft, non distended, no tenderness, no masses, no palpable hernias, diastasis recti no, no hepatosplenomegaly. normal bs Lymphatic: no cervical adenopathy, no axillary adenopathy, no supraclavicular adenopathy. Musculoskeletal: normal gait, digits and nails without infection, nodes, cyanosis, clubbing. Skin: no rashes, no lesions, no ulcers, no subcutaneous nodules, induration. Psychiatric/Neuro: oriented to time, place, person, judgement normal, affect appropriate for age, insight intact, no focal deficits. Tests: , x-rays reviewed, review of old records completed , Discussed surgical options, risks, and possible complications with patient. Assessment/Plan 1. Atypical ductal hyperplasia of right breast (N60.91: Unspecified benign mammary dysplasia of right breast) plan needle localized right breast lumpectomy under anesthesia, informed consent obtained. Amcef 2 gms IV prior to OR SCDs 2. Extremely dense tissue of both breasts on mammography (R92.343: Mammographic extreme density, bilateral breasts) see # 1 3. Fibrocystic breast (N60.19: Diffuse cystic mastopathy of unspecified breast) see # 1 4. Rectal bleeding (K62 (more content not included)... [facility] Comment on above: Result Comment: Elec tronically Signed By: KYLEE BERMAN, Adarsh Myers\Date and Time Signed: 02/02/24 13:48 EDT Evaluation + Plan note Note Date & Type Note Facility Evaluation + Plan note Future Appointments Appointment Date:04/07/2024 10:00:00 AM Scheduled Provider:Sophia BERMAN, Дмитрий Spring Location:[facility] Appointment Type: Post Op [address] [facility] [address] Evaluation note Note Date & Type Note Facility Evaluation note Diagnosis Atypical hyperplasia of breast- Primary Abnormal mammogram of right breast documented in this encounter [facility] Hospital course Narrative Note Date & Type Note Facility Hospital course Narrative No data available for this section [facility] Hospital Discharge instructions Note Date & Type Note Facility Hospital Discharge instructions No data available for this section [facility] Progress note Note Date & Type Note Facility Progress note No data available for this section [facility] Summary Purpose Family History No Family History Records FoundNo Family History Records Found No data available for this section No Family History Records FoundNo Family History Records Found Advance Directives No Advanced Directives Records FoundNo Advanced Directives Records FoundNo Advanced Directives Records FoundNo Advanced Directives Records Found Reason for Referral Specialty Diagnoses / Procedures Referred By Contac t Referred To Contact Diagnoses Atypical hyperplasia of breast Abnormal mammogram of right breast Procedures Right breast MR with and without IV contrast Norma Benavides, JIG AND FIXTURE BUILDER APPRENTICE [address] [place] [address] Referral ID Status Reason Start Date Expiration Date V isits Requested Visits Authorized [id number] Pending Review 12/02/2023 05/30/2024 1 1 Specialty Diagnoses / Procedures Referred By Citlaly celis Referred To Contact Diagnoses Atypical hyperplasia of breast Abnormal mammogram of right breast Procedures Left breast MR with and without IV contrast Norma Benavides NP [address] [place] [address] Referral ID Status Reason Start Date Expiration Date V isits Requested Visits Authorized [id number] Pending Review 12/02/2023 05/30/2024 1 1 Additional Source Comments INFORMATION SOURCE (unrecogn ized section and content) DATE CREATED AUTHOR 09/27/2022 [facility] DATE CREATED AUTHOR AUTHOR'S ORGANIZ ATION 01/14/2024 [facility] DATE CREATED AUTHOR AUTHOR'S ORGANIZ ATION 02/20/2024 [facility] DATE CREATED AUTHOR AUTHOR'S ORGANIZ ATION 03/20/2024 [facility] Care Teams (unrecognized sec tion and content) Motion Picture Printer Relationship Specialty Start Date End Date Farzad Lawler MD [address] [place] [address] PCP - General Family Medicine 10/23/23 Norma Benavides NP [address] [place] [address] Nurse Practitioner Family Medicine 10/23/23 FOR RECORDS PERTAINING TO PATIENTS WHO ARE [...] BE BASED ON THE PRIMARY CLINICAL RECORDS. [facility] [email or web address] [facility]. provides no warranty or guarantee of the accuracy or completeness of information in this document.
--- NOTE | 2024-04-01 08:13 | US_ITS ---
The [address] [address] Patient Name: ARIK LEMONS MRN: [id number] date: 1980 Sex: F Assigned Patient Location: SURGOUT Current Patient Location: Accession/Order Number: [id number] Exam Date: 04/01/2024 08:15 Report Date: 04/03/2024 16:04 At the request of: FRANSISCO PICHARDO Procedure: US breast needle loc RT EXAM: US breast needle loc RT HISTORY: Breast mass COMPARISON: Ultrasound breast right Limited 11/19/2023 TECHNIQUE: Percutaneous ultrasound evaluation of right breast FINDINGS: Biopsy marker clip from prior soft tissue sampling was located within the upper outer quadrant. The skin and deeper tissues were anesthetized 1% buffered lidocaine. Localization needle and hookwire were advanced into the breast from a lateral approach at the 11:00 position and secured deep to the marker clip. The patient tolerated the procedure well without complications. US/US breast needle loc RT IMPRESSION: 1. Wire localization of prior biopsy marker clip within right breast upper outer quadrant, 11:00. Electronically authenticated by: RENETTA MERINO Date: 04/03/2024 16:04
--- NOTE | 2024-04-01 08:13 | US_ITS ---
[address] [address] Patient Name: ARIK LEMONS MRN: [id number] date: 1980 Sex: F Assigned Patient Location: SURGOUT Current Patient Location: [facility] Accession/Order Number: [id number] Exam Date: 04/01/2024 10:20 Report Date: 04/01/2024 11:08 At the request of: FRANSISCO PICHARDO Procedure: US surgical specimen RT EXAM: US surgical specimen RT HISTORY: Breast mass COMPARISON: Ultrasound breast needle localization right 04/01/2024, ultrasound breast right Limited 11/19/2023, mammography 11/19/2023 TECHNIQUE: Ultrasound evaluation of surgical soft tissue specimen FINDINGS: Biopsy marker clip is identified within the peripheral margin of the tissue sample. US/US surgical specimen RT IMPRESSION: Biopsy marker clip within surgical tissue specimen at its margin. Electronically authenticated by: RENETTA MERINO Date: 04/01/2024 11:08
[2024-04-01] MEDS: LIDOCAINE HCL 10 ML, SODIUM BICARBONATE 1 MEQ INJ (08:40)
== END ==
PROVIDERS: Radiology Diagnostic Radiology; PCP Nurse Practitioner; Visit Provider Surgery
DX: N62 Hypertrophy of breast (principal)
CPT/HCPCS: 19285; 76098; A4648

== ENCOUNTER 2024-04-01 07:20 | Day surgery (SDC) | payer MEDICAID, SELFPAY ==
[2024-03-20 10:35] VITALS: BP 112/78; PULSE 86; TEMP 36.4; O2SAT 100; BMI 25.7
[2024-04-01] VITALS (9 sets, daily range): BP systolic 97–115; BP diastolic 55–67; PULSE 87–103; TEMP 36.2–36.6; O2SAT 100; BMI 25.4
--- NOTE | 2024-04-01 | OP_ITS ---
OPERATION DATE: 04/01/2024 PREOPERATIVE DIAGNOSIS: Atypical ductal hyperplasia of the right breast. POSTOPERATIVE DIAGNOSIS: Atypical ductal hyperplasia of the right breast. PROCEDURE: Right breast lumpectomy, needle localized. SURGEON: Adarsh Fish M.D. ANESTHESIA: General with laryngeal mask airway as well as local with 0.5% Marcaine plain. ESTIMATED BLOOD LOSS: Less than 10 mL. INDICATIONS AND CONSENT: Patient is a 43-year-old female with a history of dense breast tissue and microcalcifications in the right upper outer quadrant. She underwent a previous ultrasound guided biopsy at [place] that revealed an area of atypical ductal hyperplasia. She now presents for lumpectomy for removal of this area and to determine if there is any upgrade. Indications, risks, benefits, alternatives of proceeding with lumpectomy were explained extensively to the patient, including risks of bleeding, infection, scarring, pain, need for further surgery, anesthetic complications. All of her questions were answered. Informed consent was obtained. PROCEDURE: Patient brought to the operating room, after previously undergoing ultrasound guided needle localization in Radiology. General anesthesia was induced. She was prepped and draped in the usual sterile fashion. A curvilinear incision was made over the area of the wire in the right upper quadrant, carried down through subcutaneous tissue using sharp dissection. The superior and inferior skin flaps were raised. The area around the wire was then excised with electrocautery down to the chest wall. There was very dense, appeared to be fibrocystic type tissue in the medial aspect of the breast. The specimen was marked with a short stitch superior and a long stitch laterally. It was sent off to Pathology where the clip was noted to be within the specimen. The cavity was then copiously irrigated. Hemostasis was achieved with 3-0 Monocryl sutures, as well as electrocautery. The subcutaneous tissue was re- approximated with 3-0 Monocryl suture. The skin was then closed with a running 4-0 subcuticular Monocryl suture and skin glue. A sterile pressure dressing was applied, as well as the patient?s bra. Sponge and needle counts were correct x3 per nursing personnel. Patient tolerated procedure well, was sent to recovery room in good condition. CC: Norma Benavides, PRECIOUS ORELLANA
[2024-04-01 07:24] LABS: HCG Qualitative NEGATIVE (NEGATIVE)
--- NOTE | 2024-04-01 08:06 | PC.NURSE ---
(0803) Patient taken to xray for needle localization placement.
[2024-04-01] MEDS: LACTATED RINGER'S SOLUTION 1,000 ML 50 ML IV (09:10)
[2024-04-01] MEDS: CEFAZOLIN SODIUM/DEXTROSE,ISO 2 GM/50 ML PIGGYBACK IV (09:10)
[2024-04-01] MEDS: BUPIVACAINE HCL 0.5% PF 50 MG/10 ML VIAL INJ (10:30)
--- NOTE | 2024-04-01 12:06 | PC.NURSE ---
1145: pt educated on PEP device. pt then showed the headline writer how it is used.
--- OUTSIDE RECORDS SUMMARY | 2024-04-01 12:46 | XMS_ITS | CCD ---
Author Organization [facility] Informat ion Partnership [facility] Care Team Providers Care Fuse Coiler Name Role Phone AICHHOLZ, MOTORCYCLE SERVICE TECHNICIAN NORMA Admitting Unavailable AICHHOLZ, MOTORCYCLE SERVICE TECHNICIAN NORMA Attending Unavailable AICHHOLZ, MOTORCYCLE SERVICE TECHNICIAN NORMA Primary Care Unavailable AICHHOLZ, MOTORCYCLE SERVICE TECHNICIAN NORMA Consulting Unavailable KARASIK, DR MUÑOZ Admitting Unavailable KARASIK, DR MUÑOZ Attending Unavailable AICHHOLZ, MOTORCYCLE SERVICE TECHNICIAN NORMA Primary Care Unavailable KARASIK, DR MUÑOZ Consulting Unavailable THORNTON, DR MAIN Consulting Unavailable AICHHOLZ, MOTORCYCLE SERVICE TECHNICIAN NORMA Admitting Unavailable AICHHOLZ, MOTORCYCLE SERVICE TECHNICIAN NORMA Attending Unavailable AICHHOLZ, MOTORCYCLE SERVICE TECHNICIAN NORMA Primary Care Unavailable AICHHOLZ, MOTORCYCLE SERVICE TECHNICIAN NORMA Consulting Unavailable MISC, DR DUMONT Admitting Unavailable MISC, DR DUMONT Attending Unavailable AICHHOLZ, MOTORCYCLE SERVICE TECHNICIAN NORMA Primary Care Unavailable MISC, DR DUMONT Consulting Unavailable MISC, DR DUMONT Admitting Unavailable MISC, DR DUMONT Attending Unavailable AICHHOLZ, MOTORCYCLE SERVICE TECHNICIAN NORMA Primary Care Unavailable MISC, DR DUMONT Consulting Unavailable KARASIK, DR MUÑOZ Admitting Unavailable KARASIK, DR MUÑOZ Attending Unavailable AICHHOLZ, MOTORCYCLE SERVICE TECHNICIAN NORMA Primary Care Unavailable KARASIK, DR MUÑOZ Consulting Unavailable ZIEBER, DR PARVEEN Lopez Consulting Unavailable MISC, DR DUMONT Admitting Unavailable MISC, DR DUMONT Attending Unavailable AICHHOLZ, MOTORCYCLE SERVICE TECHNICIAN NORMA Primary Care Unavailable KARASIK, DR MUÑOZ Admitting Unavailable KARASIK, DR MUÑOZ Attending Unavailable AICHHOLZ, MOTORCYCLE SERVICE TECHNICIAN NORMA Primary Care Unavailable KARASIK, DR MUÑOZ Consulting Unavailable Aichholz COLLAR CLOSER LOCKSTITCH, Norma Unavailable Farzad Lawler MD Primary Care Provider Makayla, Norma J Attending Unavailable Aichholz, Norma J Primary Care Unavailable Aichholz, Norma J Admitting Unavailable AICHHOLZ, NORMA J Primary Care Physician NORMA BENAVIDES Attending Unavailable NORMA BENAVIDES Attending Unavailable NORMA BENAVIDES Attending Unavailable Adarsh PICHARDO Attending Unavailable Adarsh PICHARDO Attending Unavailable Adarsh PICHARDO Attending Unavailable BEN PRABHAKAR CNP Primary Care Unavailable Дмитрий Cortes Attending Unavailable Allergies Allergy Classification Reported Allergen(s) Allergy Type Date of Onset Reaction(s) Facility (1 source) lamoTRIgine Drug Allergy 2 [facility] Repository (2 sources) Lamotrigine; Translations: [lamoTRIgine] Allergy to substance 3 [facility] (1 source) lamoTRIgine Drug Allergy 1 [facility] Repository (1 source) lamoTRIgine; Translations: [lamotrigine] Drug Allergy Cutaneous eruption (morphologic abnormality) [facility] (1 source) lamoTRIgine; Translations: [LaMICtal ODT] Drug Allergy [facility] Repository Medications Current Medications Medication Drug [...] te Episodic/Chronic Other aftercare (1 source) Other senior living (current) drug therapy; Translations: [OTH SKIN PILER 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 THERAPY] Onset: 06-22-2022 Episodic Residual codes; unclassified (1 source) Anterograde amnesia; Translations: [ANTEROGRADE AMNESIA] Onset: 06-22-2022 Episodic Results Test Name Value Interpretation Reference Range Facility Insurance Correspondenceon 0 03-18-2024 Insurance Correspondence [id number]#1.00 TIFF Normal [facility] Consent for Procedure/Surger yon 02-03-2024 Consent for Procedure/Surgery [id number]#1.00T IFF Normal [facility] Consent for Procedure/Surgery [id number]#1.00T IFF Normal [facility] Ambulatory Visit Summaryon 0 01-31-2024 Ambulatory [...] for choosing us for your care. Normal [facility] RAD - MRI Reporton RAD - MRI Report [id number]#1.00T IFF Normal [facility] MR breast BI wo/w con CADon 01-07-2024 MR breast BI wo/w con CAD [facility] [place] [place] [address] MRI Report Signed Patient: Arik Alexander MR#: [id number] : 1980 Acct:[id number] Age/Sex: 43 / F ADM Date: 01/07/24 Loc: MR Room: Type: [facility] Attending Dr: Norma Benavides Copies to: CAMRYN [...] All imaged data was reviewed using the Trilliant system. The postcontrast images were subtracted and [...] Daniel Jr., D.OChuck01/08/2024 9:48 AM Dictation Location: [place] [address] Transcribed By: [facility] 01/08/24947 Dictated By: Lamont Daniel Jr, DO 01/07/24 1530 Signed By: 01/08/2448 [facility] Outside Mammographyon 2023 Outside Mammography [id number]#1.00T IFF Normal [facility] Physician Referralon 024 Physician Referral [id number]#[id number] FF Normal [facility] Physician Referralon 024 Physician Referral [id number]#1.00T IFF Normal [facility] MAMMO POST BIOPSY RIGHTon MAMMO POST BIOPSY RIGHT Patient: ARIK ALEXANDER Exam Date: 09/13/2022 : 1980 Gender:F Ordering : DR TONI STEVE . Admission #: [id number] Family : Order #: [id number] CLICK HERE TO VIEW EXAM This report [...] on 09/13/2022 at 15:26 Approved by: Parveen Peratla M.D. on 09/13/2022 at 15:27 ADDENDUM: COMPARISON: MAMM DIAGNOSTIC 3D GREGG CAD, 08/31/2022. FINDINGS: DIAGNOSTIC CATEGORY 3--PROBABLY BENIGN FINDING. THE FOLLOWING FINDING(S) HAS A HIGH PROBABILITY OF A BENIGN ETIOLOGY: RECOMMENDATIONS: SURGICAL CONSULTATION. SHORT TERM FOLLOW-UP DIAGNOSTIC MAMMOGRAM RIGHT BREAST IN 6 MONTHS. Dictated by: Parveen Peralta M.D. on 09/25/2022 at 12:23 Approved by: Parveen Peralta M.D. on 09/25/2022 at 12:25 Normal [facility] MG STEREO CORE NDL W CLIP RT on 09-13-2022 MG STEREO CORE NDL W CLIP RT Patient: ARIK ALEXANDER Exam Date: 09/13/2022 : 1980 Gender:F Ordering : DR TONI STEVE . Admission #: [id number] Family : Order #: [id number] CLICK HERE TO VIEW EXAM This report [...] M.D. on 09/25/2022 at 12:23 Normal [facility] HIV 1 AND 2 WITH REFLEXon HIV Screen 4th Generation wRfx Non-Reactive Normal Non Reactive [facility] Comment on above: Result Comment: HIV Negative HIV-1/HIV-2 antibodies and HIV-1 p24 antigen were NOT detected. There is no laboratory evidence of HIV infection. Performed By: #### H IV12 #### [facility] [address] [place] [address] Dr. Francisca Henderson RPR QUANTon 09-02-2022 Rapid Plasma Reagin, Quant Non-Reactive Normal NonRea<1:[address] [facility] Comment on above: Result Comment: Briseida noguera Note: This test does not meet current guidelines for screening and diagnosis of syphilis. This test is intended for following treatment response in patients being treated for syphilis infection. To screen for syphilis infection, a reflex cascade that includes both RPR and a treponema-specific assay should be utilized, such as Treponema pallidum (Syphilis) Screening [place] (394421) or Rapid Plasma Reagin (RPR) Test With Reflex to Quantitative RPR and Confirmatory Treponema pallidum Antibodies (162639). Performed By: #### R PRQ ####[facility] [address] [place] [address]Dr. Francisca Henderson CBC AUTO DIFFon 08-31-2022 BASO # 0.1 103/ul Normal 0.0-0.1 [facility] Comment on above: Performed By: #### C BC #### [facility] [address] [place] [address] [address] Francisca Henderson Basophils/100 WBC (Bld) 1.1 % Normal 0.2-2.[address] [facility] Comment on above: Performed By: #### C BC #### [facility] [address] [place] [address] Dr. Francisca Henderson EO # 0.3 103/ul Normal 0.0-0.[address] [facility] Comment on above: Performed By: #### C BC #### [facility] [address] [place] [address] [address] Francisca Henderson Eosinophils/100 WBC (Bld) 2.8 % Normal 0.9-7.[address] [facility] Comment on above: Performed By: #### C BC #### [facility] [address] [address] [address] Francisca Henderson Erythrocyte distribution width (RBC) [Ratio] 12.3 % Normal 11.0-15.0 [facility] Comment on above: Performed By: #### C BC #### [facility] [address] [place] [address] [address] Francisca Henderson Hematocrit (Bld) [Volume fraction] 39.4 % Normal 36.0-48.0 [facility] Comment on above: Performed By: #### C BC #### [facility] [address] [place] [address] Dr. Francisca Henderson Hemoglobin (Bld) [Mass/Vol] 12.8 g/dL Normal 12.0-16.[address] [facility] Comment on above: Performed By: #### C BC #### [facility] [address] [place] [address] Dr. Francisca Henderson IG # 0.03 10e3/ul Normal 0.00-0.03 [facility] Comment on above: Performed By: #### C BC #### [facility] [address] [place] [address] Dr. Francisca Henderson IG % 0.3 % Normal 0.0-0.5 [facility] Comment on above: Performed By: #### C BC #### [facility] [address] [place] [address] Dr. Francisca Henderson LYMPH # 2.6 103/ul Normal 1.2-3.8 [facility] Comment on above: Performed By: #### C BC #### [facility] [address] [place] [address] Dr. Francisca Henderson Lymphocytes/100 WBC (Bld) 29.1 % Normal 20.5-60.[address] [facility] Comment on above: Performed By: #### C BC #### [facility] [address] [place] [address] Dr. Francisca Henderson MANUAL DIFF REQ NO Normal [facility] Comment on above: Performed By: #### C BC #### [facility] [address] [place] [address] Dr. Francisca Henderson MCH (RBC) [Entitic mass] 29.6 pg Normal 26.7-34.0 [facility] Comment on above: Performed By: #### C BC #### [facility] [address] [place] [address] Dr. Francisca Henderson MCHC (RBC) [Mass/Vol] 32.5 g/dL Normal 29.9-35.2 [facility] Comment on above: Performed By: #### C BC #### [facility] [address] [place] [address] [address] Francisca Henderson MCV (RBC) [Entitic vol] 91.0 fL Normal 81.0-99.0 [facility] Comment on above: Performed By: #### C BC #### [facility] [address] [place] [address] [address] Francisca Henderson MONO # 0.5 103/ul Normal 0.3-0.8 [facility] Comment on above: Performed By: #### C BC #### [facility] [address] [place] [address] Dr. Francisca Henderson Monocytes/100 WBC (Bld) 5.3 % Normal 1.7-12.0 [facility] Comment on above: Performed By: #### C BC #### [facility] [address] [place] [address] [address] Francisca Henderson NEUT # 5.4 103/ul Normal 1.4-6.5 [facility] Comment on above: Performed By: #### C BC #### [facility] [address] [place] [address] Dr. Francisca Henderson Neutrophils/100 WBC (Bld) 61.4 % Normal 43.0-75.0 [facility] Comment on above: Performed By: #### C BC #### [facility] [address] [place] [address] [address] Francisca Henderson Platelet mean volume (Bld) [Entitic vol] 8.8 fL Critically low 9.5-13.5 [facility] Comment on above: Performed By: #### C BC #### [facility] [address] [place] [address] Dr. Francisca Henderson PLT 451 103/ul Critically high 150-450 [facility] Comment on above: Performed By: #### C BC #### [facility] [address] [place] [address] Dr. Francisca Henderson RBC 4.33 106/ul Normal 4.20-5.40 [facility] Comment on above: Performed By: #### C BC #### [facility] [address] [place], [place] [address] Dr. Francisca Henderson WBC 8.8 103/ul Normal 4.0-11.0 [facility] Comment on above: Performed By: #### C BC #### [facility] [address] [place], [place] [address] Dr. Francisca Henderson MG MAMM DIAGNOSTIC 3D GREGG CA Don 08-31-2022 MG MAMM DIAGNOSTIC 3D GREGG CAD Patient: ARIK ALEXANDER Exam Date: 08/31/2022 : 1980 Gender:F Ordering : DR TONI STEVE . Admission #: [id number] Family : Order #: [id number] CLICK HERE TO VIEW EXAM RADIOLOGY REPORT [...] brain cancer at age 74. LOCATION: [facility] BREAST COMPOSITION: Extremely dense, which lowers the [...] Nieves MD on 08/31/2022 at 15:33 Normal [facility] PROF 14(COMP METB)on 022 Albumin [Mass/Vol] 3.8 g/dL Normal 3.4-5.0 [facility] Comment on above: Performed By: #### C MP #### [facility] [address] [place] [address] Dr. Francisca Henderson Albumin/Globulin [Mass ratio] 1.0 {ratio} Normal [facility] Comment on above: Performed By: #### C MP #### [facility] [address] [place] [address] Dr. Francisca Henderson ALP [Catalytic activity/Vol] 89 U/L Normal 46-116 [facility] Comment on above: Performed By: #### C MP #### [facility] [address] [place] [address] Dr. Francisca Henderson ALT [Catalytic activity/Vol] 18 U/L Normal 14-59 [facility] Comment on above: Performed By: #### C MP #### [facility] [address] [place] [address] Dr. Francisca Henderson Anion gap [Moles/Vol] 6.3 mmol/L Normal [facility] Comment on above: Performed By: #### C MP #### [facility] [address] [place] [address] Dr. Francisca Henderson AST [Catalytic activity/Vol] 16 U/L Normal 15-37 [facility] Comment on above: Performed By: #### C MP #### [facility] [address] [place] [address] Dr. Francisca Henderson Bilirubin [Mass/Vol] 0.2 mg/dL Normal 0.2-1.0 [facility] Comment on above: Performed By: #### C MP #### [facility] [address] [place] [address] Dr. Francisca Henderson Calcium [Mass/Vol] 9.4 mg/dL Normal 8.5-10.1 [facility] Comment on above: Performed By: #### C MP #### [facility] [address] [place] [address] [address] Francisca Henderson Chloride [Moles/Vol] 105 mmol/L Normal 98-107 [facility] Comment on above: Performed By: #### C MP #### [facility] [address] [place] [address] Dr. Francisca Henderson CO2 [Moles/Vol] 29.1 mmol/L Normal 21.0-32.0 [facility] Comment on above: Performed By: #### C MP #### [facility] [address] [place] [address] Dr. Francisca Henderson Creatinine [Mass/Vol] 0.99 mg/dL Normal 0.55-1.02 [facility] Comment on above: Performed By: #### C MP #### [facility] [address] [place] [address] Dr. Francisca Henderson EGFR-AF IRANIAN >60 Normal >=60 [facility] Comment on above: Performed By: #### C MP #### [facility] [address] [place] [address] Dr. Francisca Henderson EGFR-NON AF IRANIAN >60 Normal >=[address] [facility] Comment on above: Performed By: #### C MP #### [facility] [address] [place] [address] Dr. Francisca Henderson Globulin (S) [Mass/Vol] 3.7 g/dL Normal [facility] Comment on above: Performed By: #### C MP #### [facility] [address] [place] [address] Dr. Francisca Henderson Glucose [Mass/Vol] 87 mg/dL Normal 74-106 [facility] Comment on above: Performed By: #### C MP #### [facility] [address] [place] [address] Dr. Francisca Henderson Potassium [Moles/Vol] 4.4 mmol/L Normal 3.5-5.1 [facility] Comment on above: Performed By: #### C MP #### [facility] [address] [place] [address] Dr. Francisca Henderson Protein [Mass/Vol] 7.5 g/dL Normal 6.4-8.2 [facility] Comment on above: Performed By: #### C MP #### [facility] [address] [place] [address] [address] Francisca Henderson Sodium [Moles/Vol] 136 mmol/L Normal 136-145 [facility] Comment on above: Performed By: #### C MP #### [facility] [address] [place] [address] [address] Francisca Henderson Urea nitrogen [Mass/Vol] 15.0 mg/dL Normal 7.0-18.0 [facility] Comment on above: Performed By: #### C MP #### [facility] [address] [place] [address] [address] Francisca Henderson Urea nitrogen/Creatinine [Mass ratio] 15.2 mg/mg Normal [facility] Comment on above: Performed By: #### C MP #### [facility] [address] [place] [address] [address] Francisca Henderson SED RATE [facility] 2021 SED RATE 24 mm/hr Critically high <=20 [facility] Comment on above: Performed By: #### S EDR #### [facility] [address] [place] [address] Dr. Francisca Henderson US BREAST GREGG LIMITEDon 11-0 BREAST GREGG LIMITED Patient: ARIK ALEXANDER Exam Date: 08/31/2022 : 1980 Gender:F Ordering : DR TONI STEVE . Admission #: [id number] Family : Order #: [id number] CLICK HERE TO VIEW EXAM RADIOLOGY REPORT [...] brain cancer at age 74. LOCATION: [facility] BREAST COMPOSITION: Extremely dense, which lowers the [...] Nieves MD on 08/31/2022 at 15:33 Normal [facility] CULTURE WOUNDon 07-12-2022 CULTURE WOUND Culture Observations [...] S F Oxacillin >=4 R F Normal [facility] Comment on above: Performed By: #### W OUNDCX ####[facility] [address] [place], [place] [address]XoChuck Francisca Santiago PAP ACOG PANEL 2: 30 to 65on 07-09-2022 . . Normal [facility] Comment on above: Result Comment: Perf ormed at: WB Performed By: #### 4 [id number] ####[facility] [address] [place] [id number]. Francisca Henderson Age Gdln ACOG Testing 30-65 Normal [facility] Comment on above: Performed By: #### 4 [id number] ####[facility] [address] [place] [id number]. Francisca Henderson DIAGNOSIS: Comment Normal [facility] Comment on above: Result Comment: NEGA TIVE FOR INTRAEPITHELIAL LESION OR MALIGNANCY. Performed at: WB Performed By: #### 4 [id number] ####[facility] [address] [place] [id number]. Francisca Henderson HPV Aptima Negative Normal Negative [facility] Comment on above: Result Comment: This nucleic acid amplification test detects fourteen high-risk HPV types (16,18,31,33,35,39,45,51,52,56,58,59,66,68) without differentiation. Performed at: =G Performed By: #### 4 [id number] ####[facility] [address] [place] [id number]. Francisca Henderson Methodology: Comment Normal [facility] Comment on above: Result Comment: This liquid based ThinPrep(R) pap test was screened with the use of an image guided system. Performed at: WB Performed By: #### 4 [id number] ####[facility] [address] [place] [id number]. Francisca Henderson Note: Comment Normal [facility] Comment on above: Result Comment: The Pap smear is a screening test designed to aid in the detection of premalignant and malignant conditions of the uterine cervix. It is not a diagnostic procedure and should not be used as the sole means of detecting cervical cancer. Both false-positive and false-negative reports do occur. . Performed at: WB Performed By: #### 4 [id number] ####[facility] [address] [place] [id number]. Francisca Henderosn Performed by: Comment Normal [facility] Comment on above: Result Comment: Pamela Yepez, Copy Technician (ASCP) Performed at: WB Performed By: #### 4 [id number] ####[facility] [address] [place] [address]Dr. Francisca Henderson Specimen adequacy: Comment Normal [facility] Comment on above: Result Comment: Sati sfactory for evaluation. Endocervical and/or squamous metaplastic cells (endocervical component) are present. Performed at: WB Performed By: #### 4 [id number] ####[facility] [address] [place] [address]DrChuck Henderson LITHIUMon 06-21-2022 Noroton (Eskalith(R)), Serum 1.3 mmol/L Invalid Interpretation Code 0.5-1.2 [facility] Comment on above: Result Comment: Plas ma concentration of 0.5 - 0.8 mmol/L are advised for long-term use; concentrations of up to 1.2 mmol/L may be necessary during acute treatment. Detection Limit = 0.1 <0.1 indicates None Detected Patient drug level exceeds published reference range. Evaluate clinically for signs of potential toxicity. Performed By: #### L ITHIUM ####[facility] [address] [place] [address]DrChuck Henderson ELECTROLYTESon 06-20-2022 Anion gap [Moles/Vol] 11.8 mmol/L Normal [facility] Comment on above: Performed By: #### E LEC #### [facility] [address] [place] [address] Dr. Francisca Henderson Chloride [Moles/Vol] 100 mmol/L Normal 98-107 [facility] Comment on above: Performed By: #### E LEC #### [facility] [address] [place] [address] Dr. Francisca Henderson CO2 [Moles/Vol] 28.4 mmol/L Normal 21.0-32.0 [facility] Comment on above: Performed By: #### E LEC #### [facility] [address] [place] [address] Dr. Francisca Henderson Potassium [Moles/Vol] 4.2 mmol/L Normal 3.5-5.1 [facility] Comment on above: Performed By: #### E LEC #### [facility] [address] [place] [id number] Dr. Francisca Henderson Sodium [Moles/Vol] 136 mmol/L Normal 136-145 [facility] Comment on above: Performed By: #### E LEC #### [facility] [address] [address] [address] Francisca Henderson LITHIUMon 02-10-2022 Noroton (Eskalith(R)), Serum 0.4 mmol/L Critically low 0.5-1.2 [facility] Comment on above: Result Comment: Plas ma concentration of 0.5 - 0.8 mmol/L are advised for long-term use; concentrations of up to 1.2 mmol/L may be necessary during acute treatment. Detection Limit = 0.1 <0.1 indicates None Detected Performed By: #### L ITHIUM #### [facility] [address] [place] [address] Dr. Francisca Henderson ELECTROLYTESon 02-09-2022 Anion gap [Moles/Vol] 10.1 mmol/L Normal [facility] Comment on above: Performed By: #### E LEC #### [facility] [address] [place] [address] Dr. Francisca Henderson Chloride [Moles/Vol] 103 mmol/L Normal 98-[address] [facility] Comment on above: Performed By: #### E LEC #### [facility] [address] [place] [address] Dr. Francisca Henderson CO2 [Moles/Vol] 29.3 mmol/L Normal 22.0-30.0 The [facility] Comment on above: Performed By: #### E LEC #### [facility] [address] [place] [address] Dr. Francisca Henderson Potassium [Moles/Vol] 4.4 mmol/L Normal 3.4-5.[address] [facility] Comment on above: Performed By: #### E LEC #### [facility] [address] [place] [address] Dr. Francisca Henderson Sodium [Moles/Vol] 138 mmol/L Normal 137-145 [facility] Comment on above: Performed By: #### E LEC #### [facility] [address] [place] [address] Dr. Francisca Henderson Vital Signs Date Time Vital Sign Value Performing Clinician Lukas aragon 01-31-2024 14:30-0400 Blood Pressure Location Adarsh NILL [facility] 01-31-2024 14:30-0400 Diastolic blood pressure 74 mm[Hg] Adarsh NILL [facility] 01-31-2024 14:30-0400 Heart rate 94 /min Adarsh NILL [facility] 01-31-2024 14:30-0400 Respiratory rate 16 /min Adarsh NILL [facility] 01-31-2024 14:30-0400 Systolic blood pressure 112 mm[Hg] Adarsh NILL [facility] Encounters Encounter Date Encounter Type Care Provider Facility Start: 04-07-2024 ambulatory Дмитрий Naylor y:[facility] Start: 02-18-2024 End: 02-18-2024 ambulatory NORMA BENAVIDES Not Available Start: 01-31-2024 End: 02-01-2024 ambulatory Adarsh PICHARDO Facility:[facility] Start: 01-31-2024 End: 01-31-2024 Patient encounter procedure Adarsh R NILL [facility] Start: 01-07-2024 End: 01-07-2024 ambulatory Norma Benavides Facility:[facility] Start: 12-20-2023 ambulatory Adarsh R NILL Facility :[facility] Start: 12-02-2023 Orders Only Norma Benavides [employer] Work Phone: [facility] Comment on above: Atypical hyperplasia of breast (Primary Dx); Abnormal mammogram of right breast Start: 11-14-2023 ambulatory BEN PRABHAKAR CNP Facility: [facility] Start: 11-12-2023 End: 11-12-2023 ambulatory NORMA MAKAYLA [...] Clinician Start: 11-19-2023 Mammography Norma Sharma manan [employer] Work Phone: Start: 07-03-2022 Microscopic observat ion [Identifier] in Cervix by Cyto stain Norma Makayla [employer] Work Phone: Biopsy of breast Adarsh Garcia Endometrial ablation Adarsh PICHARDO Insertion of intraut erine contraceptive device Adarsh PICHARDO Plan of Treatment Date Care Activity Detail Author Start: 07-03-2025 Screening for malign ant neoplasm of cervix [facility] Start: 11-19-2024 Screening for malign ant neoplasm of breast Mammogram [facility] Start: 04-26-2024 Influenza vaccination Influenza Vacc ine (#1) [facility] Comment on above: Postponed from 06/28 (Patient Refused) Start: 12-25-2023 End: 12-25-2023 Patient encounter procedure 12/25/2023 1:40 PM EST Office Visit [facility] [address] [place] [address] Norma Benavides, GISELE [address] [place] [address] [facility] Start: 12-02-2023 End: 01-30-2025 MR Breast - left WO and W contrast IV Left breast MR with and without IV contrast Imaging Routine Atypical hyperplasia of breast Abnormal mammogram of right breast Expected: 12/02/2023 (Approximate), Expires: 01/30/2025 [facility] Work Phone: Comment on above: Expected: 12/02/2023 (Approximate), Expires: 01/30/2025 Start: 12-02-2023 End: 01-30-2025 MR Breast - right WO and W contrast IV Right breast MR with and without IV contrast Imaging Routine Atypical hyperplasia of breast Abnormal mammogram of right breast Expected: 12/02/2023 (Approximate), Expires: 01/30/2025 [facility] Comment on above: Expected: 12/02/2023 (Approximate), Expires: 01/30/2025 Start: 2010 Screening for malign ant neoplasm of cervix HPV/Cotest [facility] Immunizations Immunization Date Immunization Notes Care Provider Fa [facility] 09-05-2022 SARS-CoV-2 (COVID-19 ) [id number] Adarsh PICHARDO [facility] 10-01-2021 SARS-CoV-2 (COVID-19 ) mRNA-1273 vaccine Adarsh ADAMSL [facility] 08-30-2021 SARS-CoV-2 (COVID-19 ) mRNA-1273 vaccine Adarsh NILL [facility] 08-25-2020 influenza virus vaccine, unspecified formulation Norma Benavides NP Work Phone: [facility] Payers Date Payer Category Payer Medicaid [employer] [employer] [id number] 2022-Present [address] [place] [address] [id number] 2022 Medicaid [id number] 1980 Unknown [id number] [id number] 1980 Unknown [id number] 2.16.840.1.182310.3.579.2.593 1980 Unknown [id number] 2.16.840.1.115987.3.579.2.593 1980 Unknown [id number] 2.16.840.1.394927.3.579.2.593 1980 Unknown [id number] 2.16.840.1.526456.3.579.2.593 1980 Unknown [id number] 2.16.840.1.237749.3.579.2.593 1980 Unknown [id number] 2.16.840.1.782041.3.579.2.593 1980 Unknown [id number] 2.16.840.1.522390.3.579.2.593 1980 Unknown [id number] 2.16.840.1.379802.3.579.2.1259 1980 Unknown [id number] 2.16.840.1.363476.3.579.2.1259 1980 Unknown [id number] 2.16.840.1.894806.3.579.2.727 1980 Unknown [id number] 2.16.840.1.505114.3.579.2.727 1980 Unknown [id number] 2.16.840.1.439525.3.579.2.727 1980 Unknown [id number] 2.16.840.1.754147.3.579.2.727 1959 Self-pay 1959 Unknown [id number] Unknown [id number] 2.16.840.1.683870.3.579.2.531 Social History Date Type Detail Facility Start: [...] to any clubs or organizations such as catholic groups, unions, fraternal or athletic groups, or [...] Result Facility 01-31-2024 Functional Status N/A [facility] [place] Clinical Note 02-02-2024 Note Date & Type [...] Rectal bleeding (K62 (more content not included)... [facility] Comment on above: Result Comment: Elec tronically Signed By: KYLEE BERMAN, Adarsh Myers\Date and Time Signed: 02/02/24 13:48 EDT Evaluation + Plan note Note Date & Type Note Facility Evaluation + Plan note Future Appointments Appointment Date:04/07/2024 10:00:00 AM Scheduled Provider:Sophia BERMAN, Дмитрий Spring Location:[facility] Appointment Type: Post Op 30 [facility] [place] Evaluation note Note Date & Type Note Facility Evaluation note Diagnosis Atypical hyperplasia of breast- Primary Abnormal mammogram of right breast documented in this encounter [facility] Hospital course Narrative Note Date & Type Note Facility Hospital course Narrative No data available for this section [facility] Hospital Discharge instructions Note Date & Type Note Facility Hospital Discharge instructions No data available for this section [facility] Progress note Note Date & Type Note Facility Progress note No data available for this section [facility] Summary Purpose Family History No Family [...] with and without IV contrast Norma Benavides, [employer] [address] [place] [address] Referral ID Status Reason Start Date Expiration Date V isits Requested Visits Authorized [id number] Pending Review 12/02/2023 05/30/2024 1 1 Specialty Diagnoses / Procedures Referred By Citlaly celis Referred To Contact Diagnoses Atypical hyperplasia of breast Abnormal mammogram of right breast Procedures Left breast MR with and without IV contrast Norma Benavides NP [address] [place] [address] Referral ID Status Reason Start Date Expiration Date V isits Requested Visits Authorized [id number] Pending Review 12/02/2023 05/30/2024 1 1 Additional Source Comments INFORMATION SOURCE (unrecogn ized section and content) DATE CREATED AUTHOR 09/27/2022 [facility] DATE CREATED AUTHOR AUTHOR'S ORGANIZ ATION 01/14/2024 [facility] DATE CREATED AUTHOR AUTHOR'S ORGANIZ ATION 02/20/2024 [facility] DATE CREATED AUTHOR AUTHOR'S ORGANIZ ATION 03/20/2024 [facility] Care Teams (unrecognized sec tion and content) [employer] Relationship Specialty Start Date End Date Farzad Lawler MD [address] [place] [address] PCP - General Family Medicine 10/23/23 Norma Benavides NP [address] [place] [address] Nurse Practitioner Family Medicine 10/23/23 [...] BE BASED ON THE PRIMARY CLINICAL RECORDS. [facility] [facility]. provides no warranty or guarantee of the accuracy or completeness of information in this document.
--- OUTSIDE RECORDS SUMMARY | 2024-04-01 13:08 | XMS_ITS ---
Patient Summarization (C-CDA 2.1 CCD) Created on: April 01, 2024 ARIK ALEXANDER : 1980 Sex: Female Author Organization Sample organization Care Team Providers Care Water Inspector Name Role Phone AICHHOLZ, CORE DRILL OPERATOR NORMA Admitting Unavailable AICHHOLZ, CORE DRILL OPERATOR NORMA Attending Unavailable AICHHOLZ, CORE DRILL OPERATOR NORMA Primary Care Unavailable AICHHOLZ, CORE DRILL OPERATOR NORMA Consulting Unavailable KARASIK, DR MUÑOZ Admitting Unavailable KARASIK, DR MUÑOZ Attending Unavailable AICHHOLZ, CORE DRILL OPERATOR NORMA Primary Care Unavailable KARASIK, DR MUÑOZ Consulting Unavailable FRANKLIN PARK, DR MAIN Consulting Unavailable AICHHOLZ, CORE DRILL OPERATOR NORMA Admitting Unavailable AICHHOLZ, CORE DRILL OPERATOR NORMA Attending Unavailable AICHHOLZ, CORE DRILL OPERATOR NORMA Primary Care Unavailable AICHHOLZ, CORE DRILL OPERATOR NORMA Consulting Unavailable MISC, DR DUMONT Admitting Unavailable MISC, DR DUMONT Attending Unavailable AICHHOLZ, CORE DRILL OPERATOR NORMA Primary Care Unavailable MISC, DR DUMONT Consulting Unavailable MISC, DR DUMONT Admitting Unavailable MISC, DR DUMONT Attending Unavailable AICHHOLZ, CORE DRILL OPERATOR NORMA Primary Care Unavailable MISC, DR DUMONT Consulting Unavailable KARASIK, DR MUÑOZ Admitting Unavailable KARASIK, DR MUÑOZ Attending Unavailable AICHHOLZ, CORE DRILL OPERATOR NORMA Primary Care Unavailable KARASIK, DR MUÑOZ Consulting Unavailable ZIEBER, DR PARVEEN Lopez Consulting Unavailable MISC, DR DUMONT Admitting Unavailable MISC, DR DUMONT Attending Unavailable AICHHOLZ, CORE DRILL OPERATOR NORMA Primary Care Unavailable KARASIK, DR MUÑOZ Admitting Unavailable KARASIK, DR MUÑOZ Attending Unavailable AICHHOLZ, CORE DRILL OPERATOR NORMA Primary Care Unavailable KARASIK, DR MUÑOZ Consulting Unavailable Aichholz INVESTMENT SPECIALIST, Norma Unavailable Farzad Lawler MD Primary Care Provider Aichdiana, Norma J Attending Unavailable Aichholz, Norma J Primary Care Unavailable Aichholz, Norma J Admitting Unavailable AICHHOLZ, NORMA J Primary Care Physician NORMA BENAVIDES Attending Unavailable NORMA BENAVIDES Attending Unavailable NORMA BENAVIDES Attending Unavailable NILRadha, Adarsh Lopez Attending Unavailable NILRadha, Adarsh Lopez Attending Unavailable NILRadha, Adarsh Lopez Attending Unavailable BEN PRABHAKAR CNP Primary Care Unavailable Дмитрий Cortes Attending Unavailable Allergies Allergy Classification Reported Allergen(s) Allergy Type Date of Onset Reaction(s) Facility (1 source) lamoTRIgine Drug Allergy 2 [facility] Repository (2 sources) Lamotrigine; Translations: [lamoTRIgine] Allergy to substance 3 [facility] (1 source) lamoTRIgine Drug Allergy 1 [facility] Repository (1 source) lamoTRIgine; Translations: [lamotrigine] Drug Allergy Cutaneous eruption (morphologic abnormality) [facility] (1 source) lamoTRIgine; Translations: [LaMICtal ODT] Drug Allergy [facility] Repository Encounters Encounter Date Encounter Type Care Provider Facility Start: 04-07-2024 ambulatory Дмитрий Naylor y:[facility] Start: 02-18-2024 End: 02-18-2024 ambulatory NORMA BENAVIDES Not Available Start: 01-31-2024 End: 02-01-2024 ambulatory Adarsh R KYLEE Facility:[facility] Start: 01-31-2024 End: 01-31-2024 Patient encounter procedure Adarsh R NILL [facility] [place] Start: 01-07-2024 End: 01-07-2024 ambulatory Norma Benavides Facility:[facility] Start: 12-20-2023 ambulatory Adarsh R NILL Facility :[facility] Start: 12-02-2023 Orders Only Norma Benavides INVESTMENT SPECIALIST Work Phone: [facility] Comment on above: Atypical hyperplasia of breast (Primary Dx); Abnormal mammogram of right breast Start: 11-14-2023 ambulatory BEN PRABHAKAR CNP Facility: [facility] Start: 11-12-2023 End: 11-12-2023 ambulatory NORMA MCGARRYCLIFFMartín Not Available Start: 10-29-2023 End: 10-29-2023 ambulatory NORMA MCGARRYCLIFFMartín Not Available Start: 09-13-2022 End: 09-13-[address] TONI STEVE Facility:[facility] Start: 08-31-2022 End: 09-01-2022 ambulatory CORE DRILL OPERATOR NORMA BENAVIDES Facility:[facility] Start: 08-31-2022 End: 09-01-[address] TONI STEVE Facility:[facility] Start: 07-10-2022 End: 07-10-2022 ambulatory PRECIOUS BORREGOLogan BENAVIDES Facility:[facility] Start: 07-03-2022 End: 07-03-[address] TONI STEVE Facility:[facility] Start: 06-20-2022 End: 06-21-[address] DOCTOR LANIER Facility:[facility] Start: 02-09-2022 End: 02-10-[address] DOCTOR LANIER Facility:[facility] Start: 01-04-[address] DOCTOR LANIER Facility :[facility] Immunizations Immunization Date Immunization Notes Care Provider Fa cili 09-05-2022 SARS-CoV-2 (COVID-19 ) mRNAMUL.[id number] Adarsh PICHARDO [facility] 10-01-2021 SARS-CoV-2 (COVID-19 ) mRNA-1273 vaccine Adarsh PICHARDO [facility] 08-30-2021 SARS-CoV-2 (COVID-19 ) mRNA-1273 vaccine Adarsh PICHARDO [facility] 08-25-2020 influenza virus vaccine, unspecified formulation Norma Benavides INVESTMENT SPECIALIST Work Phone: [facility] Medications Current Medications Medication Drug Class(es) Dates [...] Refills(s) 0 Start Date: 11/27/23 Status: Ordered Payers Date Payer Category Payer Medicaid [place] BC[place] [id number] 2022-Present [address] [place] [address] [id number] 2022 Medicaid [id number] 1980 Unknown [id number] 1980 Unknown [id number] [id number] 1980 Unknown [id number] 2.16.840.1.701128.3.579.2.593 1980 Unknown [id number] 2.16.840.1.009304.3.579.2.593 1980 Unknown [id number] 2.16.840.1.839909.3.579.2.593 1980 Unknown [id number] 2.16.840.1.192978.3.579.2.593 1980 Unknown [id number] 2.16.840.1.142175.3.579.2.593 1980 Unknown [id number] 2.16.840.1.197074.3.579.2.593 1980 Unknown [id number] 2.16.840.1.798591.3.579.2.1259 1980 Unknown [id number] 2.16.840.1.718686.3.579.2.1259 1980 Unknown [id number] 2.16.840.1.583940.3.579.2.727 1980 Unknown [id number] 2.16.840.1.981213.3.579.2.727 1980 Unknown [id number] 2.16.840.1.847653.3.579.2.727 1980 Unknown [id number] 2.16.840.1.810077.3.579.2.727 1959 Self-pay 1959 Unknown [id number] Unknown [id number] [id number] Plan of Treatment Date Care Activity Detail Author Start: 07-03-2025 Screening for malign ant neoplasm of cervix [facility] Start: 11-19-2024 Screening for malign ant neoplasm of breast Mammogram [facility] Start: 04-26-2024 Influenza vaccination Influenza Vacc ine (#1) [facility] Comment on above: Postponed from 06/28 (Patient Refused) Start: 12-25-2023 End: 12-25-2023 Patient encounter procedure 12/25/2023 1:40 PM EST Office Visit [facility] [address] [place] [address] Norma Benavides NP [address] [place] [id number] [facility] Start: 12-02-2023 End: 01-30-2025 MR Breast - left WO and W contrast IV Left breast MR with and without IV contrast Imaging Routine Atypical hyperplasia of breast Abnormal mammogram of right breast Expected: 12/02/2023 (Approximate), Expires: 01/30/2025 [facility] Work Phone: Comment on above: Expected: 12/02/2023 (Approximate), Expires: 01/30/2025 Start: 12-02-2023 End: 01-30-2025 MR Breast - right WO and W contrast IV Right breast MR with and without IV contrast Imaging Routine Atypical hyperplasia of breast Abnormal mammogram of right breast Expected: 12/02/2023 (Approximate), Expires: 01/30/2025 [facility] Comment on above: Expected: 12/02/2023 (Approximate), Expires: 01/30/2025 Start: 2010 Screening for malign ant neoplasm of cervix HPV/Cotest [facility] Problems Active Problems Problem Classification Problem Date [...] te Episodic/Chronic Other aftercare (1 source) Other chcf (current) drug therapy; Translations: [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 THERAPY] Onset: 06-22-2022 Episodic Residual codes; unclassified (1 source) Anterograde amnesia; Translations: [ANTEROGRADE AMNESIA] Onset: 06-22-2022 Episodic Procedures Date Procedure Procedure Detail Performing Clinician Start: 11-19-2023 Mammography Norma hinkle INVESTMENT SPECIALIST Work Phone: Start: 07-03-2022 Microscopic observat ion [Identifier] in Cervix by Cyto stain Norma Benavides NP Work Phone: Biopsy of breast Adarsh Garcia Endometrial ablation Adarsh PICHARDO Insertion of intraut erine contraceptive device Adarsh PICHARDO Results Test Name Value Interpretation Reference Range Facility Insurance Correspondenceon 0 03-18-2024 Insurance Correspondence [id number]#1.00 TIFF Normal [facility] Consent for Procedure/Surger yon 02-03-2024 Consent for Procedure/Surgery [id number]#1.00T IFF Normal [facility] Consent for Procedure/Surgery [id number]#1.00T IFF Normal [facility] Ambulatory Visit Summaryon 0 01-31-2024 Ambulatory Visit [...] for choosing us for your care. Normal [facility] RAD - MRI Reporton RAD - MRI Report [id number]#1.00T IFF Normal [facility] MR breast BI wo/w con CADon 01-07-2024 MR breast BI wo/w con CAD [facility] [place] [address] MRI Report Signed Patient: Arik Alexander MR#: [id number] : 1980 Acct:[id number] Age/Sex: 43 / F ADM Date: 01/07/24 Loc: Room: Type: [facility] Attending Dr: Norma Benavides Copies to: [...] All imaged data was reviewed using the [employer] system. The postcontrast images were subtracted and [...] Daniel Jr., D.OChuck01/08/2024 9:48 AM Dictation Location: [place] [address] Transcribed By: [facility] 01/08/24 0948 Dictated By: Lamont Daniel Jr, DO 01/07/24 1530 Signed By: 01/08/24 0948 Normal [facility] Outside Mammographyon 2023 Outside Mammography [id number]#1.00T IFF Normal [facility] Physician Referralon 024 Physician Referral [id number]#1.00TI FF Normal [facility] Physician Referralon 024 Physician Referral [id number]#1.00T IFF Normal [facility] MAMMO POST BIOPSY RIGHTon MAMMO POST BIOPSY RIGHT Patient: ARIK ALEXANDER Exam Date: 09/13/2022 : 1980 Gender:F Ordering : DR TONI STEVE . Admission #: [id number] Family : Order #: [id number] CLICK HERE TO VIEW EXAM This report [...] Peralta M.D. on 09/25/2022 at 12:25 Normal [facility] MG STEREO CORE NDL W CLIP RT on 09-13-2022 MG STEREO CORE NDL W CLIP RT Patient: ARIK ALEXANDER Exam Date: 09/13/2022 : 1980 Gender:F Ordering : DR TONI STEVE . Admission #: [id number] Family : Order #: [id number] CLICK HERE TO VIEW EXAM This report [...] M.D. on 09/25/2022 at 12:23 Normal [facility] HIV 1 AND 2 WITH REFLEXon HIV Screen 4th Generation wRfx Non-Reactive Normal Non Reactive [facility] Comment on above: Result Comment: HIV Negative HIV-1/HIV-2 antibodies and HIV-1 p24 antigen were NOT detected. There is no laboratory evidence of HIV infection. Performed By: #### H IV12 #### [facility] [address] [place], [place] [address] Dr. Francisca Henderson RPR QUANTon 09-02-2022 Rapid Plasma Reagin, Quant Non-Reactive Normal NonRea<1:1 [facility] Comment on above: Result Comment: Plea se Note: This test does not meet current guidelines for screening and diagnosis of syphilis. This test is intended for following treatment response in patients being treated for syphilis infection. To screen for syphilis infection, a reflex cascade that includes both RPR and a treponema-specific assay should be utilized, such as Treponema pallidum (Syphilis) Screening [place] (132327) or Rapid Plasma Reagin (RPR) Test With Reflex to Quantitative RPR and Confirmatory Treponema pallidum Antibodies (020947). Performed By: #### R PRQ ####[facility] [address] [place], [place] [address]UoDr. Francisca Henderson CBC AUTO DIFFon 08-31-2022 BASO # 0.1 103/ul Normal 0.0-0.1 [facility] Comment on above: Performed By: #### C BC #### [facility] [address] [place] [address] Dr. Francisca Henderson Basophils/100 WBC (Bld) 1.1 % Normal 0.2-2.0 [facility] Comment on above: Performed By: #### C BC #### [facility] [address] [place] [address] Dr. Francisca Henderson EO # 0.3 103/ul Normal 0.0-0.7 [facility] Comment on above: Performed By: #### C BC #### [facility] [address] [place] [address] Dr. Francisca Henderson Eosinophils/100 WBC (Bld) 2.8 % Normal 0.9-7.0 [facility] Comment on above: Performed By: #### C BC #### [facility] [address] [place] [address] Dr. Francisca Henderson Erythrocyte distribution width (RBC) [Ratio] 12.3 % Normal 11.0-15.0 [facility] Comment on above: Performed By: #### C BC #### [facility] [address] [place] [address] Dr. Francisca Henderson Hematocrit (Bld) [Volume fraction] 39.4 % Normal 36.0-48.0 [facility] Comment on above: Performed By: #### C BC #### [facility] [address] [place] [address] Dr. Francisca Henderson Hemoglobin (Bld) [Mass/Vol] 12.8 g/dL Normal 12.0-16.0 [facility] Comment on above: Performed By: #### C BC #### [facility] [address] [place] [address] Dr. Francisca Henderson IG # 0.03 10e3/ul Normal 0.00-0.03 [facility] Comment on above: Performed By: #### C BC #### [facility] [address] [place] [address] Dr. Francisca Henderson IG % 0.3 % Normal 0.0-0.5 [facility] Comment on above: Performed By: #### C BC #### [facility] [address] [place] [address] Dr. Francisca Henderson LYMPH # 2.6 103/ul Normal 1.2-3.8 [facility] Comment on above: Performed By: #### C BC #### [facility] [address] [place] [address] Dr. Francisca Henderson Lymphocytes/100 WBC (Bld) 29.1 % Normal 20.5-60.0 [facility] Comment on above: Performed By: #### C BC #### [facility] [address] [place] [address] Dr. Francisca Henderson MANUAL DIFF REQ NO Normal [facility] Comment on above: Performed By: #### C BC #### [facility] [address] [place] [address] Dr. Francisca Henderson MCH (RBC) [Entitic mass] 29.6 pg Normal 26.7-34.0 [facility] Comment on above: Performed By: #### C BC #### [facility] [address] [place] [address] Dr. Francisca Henderson MCHC (RBC) [Mass/Vol] 32.5 g/dL Normal 29.9-35.2 [facility] Comment on above: Performed By: #### C BC #### [facility] [address] [place] [address] Dr. Francisca Henderson MCV (RBC) [Entitic vol] 91.0 fL Normal 81.0-99.0 [facility] Comment on above: Performed By: #### C BC #### [facility] [address] [place] [address] Dr. Francisca Henderson MONO # 0.5 103/ul Normal 0.3-0.8 [facility] Comment on above: Performed By: #### C BC #### [facility] [address] [place] [address] Dr. Francisca Henderson Monocytes/100 WBC (Bld) 5.3 % Normal 1.7-12.0 [facility] Comment on above: Performed By: #### C BC #### [facility] [address] [place] [address] [address] Francisca Henderson NEUT # 5.4 103/ul Normal 1.4-6.5 [facility] Comment on above: Performed By: #### C BC #### [facility] [address] [place] [address] [address] Francisca Henderson Neutrophils/100 WBC (Bld) 61.4 % Normal 43.0-75.0 [facility] Comment on above: Performed By: #### C BC #### [facility] [address] [place] [address] [address] Francisca Henderson Platelet mean volume (Bld) [Entitic vol] 8.8 fL Critically low 9.5-13.5 [facility] Comment on above: Performed By: #### C BC #### [facility] [address] [place] [address] [address] Francisca Henderson PLT 451 103/ul Critically high 150-450 [facility] Comment on above: Performed By: #### C BC #### [facility] [address] [place] [address] [address] Francisca Henderson RBC 4.33 106/ul Normal 4.20-5.40 [facility] Comment on above: Performed By: #### C BC #### [facility] [address] [place] [address] Dr. Francisca Henderson WBC 8.8 103/ul Normal 4.0-11.0 [facility] Comment on above: Performed By: #### C BC #### [facility] [address] [place] [address] Dr. Francisca Henderson MG MAMM DIAGNOSTIC 3D GREGG CA Don 08-31-2022 MG MAMM DIAGNOSTIC 3D GREGG CAD Patient: ARIK ALEXANDER Exam Date: 08/31/2022 : 1980 Gender:F Ordering : DR TONI STEVE . Admission #: [id number] Family : Order #: [id number] CLICK HERE TO VIEW EXAM RADIOLOGY REPORT [...] brain cancer at age 74. LOCATION: [facility] BREAST COMPOSITION: Extremely dense, which lowers [...] Nieves MD on 08/31/2022 at 15:33 Normal [facility] PROF 14(COMP METB)on 022 Albumin [Mass/Vol] 3.8 g/dL Normal 3.4-5.0 [facility] Comment on above: Performed By: #### C MP #### [facility] [address] [place], [place] [address] Dr. Francisca Henderson Albumin/Globulin [Mass ratio] 1.0 {ratio} Normal [facility] Comment on above: Performed By: #### C MP #### [facility] [address] [place], [place] [address] Dr. Francisca Henderson ALP [Catalytic activity/Vol] 89 U/L Normal 46-116 [facility] Comment on above: Performed By: #### C MP #### [facility] [address] [place] [address] [address] Francisca Henderson ALT [Catalytic activity/Vol] 18 U/L Normal 14-59 [facility] Comment on above: Performed By: #### C MP #### [facility] [address] [place] [address] Dr. Francisca Henderson Anion gap [Moles/Vol] 6.3 mmol/L Normal [facility] Comment on above: Performed By: #### C MP #### [facility] [address] [place] [address] [address] Francisca Henderson AST [Catalytic activity/Vol] 16 U/L Normal 15-37 [facility] Comment on above: Performed By: #### C MP #### [facility] [address] [place] [address] Dr. Francisca Henderson Bilirubin [Mass/Vol] 0.2 mg/dL Normal 0.2-1.0 [facility] Comment on above: Performed By: #### C MP #### [facility] [address] [place] [address] Dr. Francisca Henderson Calcium [Mass/Vol] 9.4 mg/dL Normal 8.5-10.1 [facility] Comment on above: Performed By: #### C MP #### [facility] [address] [place] [address] Dr. Francisca Henderson Chloride [Moles/Vol] 105 mmol/L Normal 98-107 [facility] Comment on above: Performed By: #### C MP #### [facility] [address] [place] [address] Dr. Francisca Henderson CO2 [Moles/Vol] 29.1 mmol/L Normal 21.0-32.0 [facility] Comment on above: Performed By: #### C MP #### [facility] [address] [place] [address] Dr. Francisca Henderson Creatinine [Mass/Vol] 0.99 mg/dL Normal 0.55-1.02 [facility] Comment on above: Performed By: #### C MP #### [facility] [address] [place] [address] Dr. Francisca Henderson EGFR-AF CITIZEN OF [place] >60 Normal >=60 [facility] Comment on above: Performed By: #### C MP #### [facility] [address] [place] [address] [address] Francisca Henderson EGFR-NON AF CITIZEN OF [place] >60 Normal >=60 [facility] Comment on above: Performed By: #### C MP #### [facility] [address] [place] [address] [address] Francisca Henderson Globulin (S) [Mass/Vol] 3.7 g/dL Normal [facility] Comment on above: Performed By: #### C MP #### [facility] [address] [place] [address] [address] Francisca Henderson Glucose [Mass/Vol] 87 mg/dL Normal 74-106 [facility] Comment on above: Performed By: #### C MP #### [facility] [address] [place] [address] [address] Francisca Henderson Potassium [Moles/Vol] 4.4 mmol/L Normal 3.5-5.1 [facility] Comment on above: Performed By: #### C MP #### [facility] [address] [place] [address] [address] Francisca Henderson Protein [Mass/Vol] 7.5 g/dL Normal 6.4-8.2 [facility] Comment on above: Performed By: #### C MP #### [facility] [address] [place] [address] [address] Francisca Henderson Sodium [Moles/Vol] 136 mmol/L Normal 136-145 [facility] Comment on above: Performed By: #### C MP #### [facility] [address] [place] [address] [address] Francisca Henderson Urea nitrogen [Mass/Vol] 15.0 mg/dL Normal 7.0-18.0 [facility] Comment on above: Performed By: #### C MP #### [facility] [address] [place] [address] [address] Francisca Henderson Urea nitrogen/Creatinine [Mass ratio] 15.2 mg/mg Normal [facility] Comment on above: Performed By: #### C MP #### [facility] [address] [place], [place] [address] Dr. Francisca Henderson [facility] SED RATE 24 mm/hr Critically high <=20 [facility] Comment on above: Performed By: #### S EDR #### [facility] [address] [place] [address] [address] Francisca Henderson US BREAST GREGG LIMITEDon 11-0 US BREAST GREGG LIMITED Patient: ARIK ALEXANDER Exam Date: 08/31/2022 : 1980 Gender:F Ordering : DR TONI STEVE . Admission #: [id number] Family : Order #: [id number] CLICK HERE TO VIEW EXAM RADIOLOGY REPORT [...] brain cancer at age 74. LOCATION: [facility] BREAST COMPOSITION: Extremely dense, which lowers [...] Nieves MD on 08/31/2022 at 15:33 Normal [facility] CULTURE WOUNDon 07-12-2022 CULTURE WOUND Culture [...] S F Oxacillin >=4 R F Normal [facility] Comment on above: Performed By: #### W OUNDCX ####[facility] [address] [place] [address]DrChuck Henderson PAP ACOG PANEL 2: 30 to 65on 07-09-2022 . . Normal [facility] Comment on above: Result Comment: Perf ormed at: WB Performed By: #### [id number] ####[facility] [address] [place] [address]DrChuck Henderson Age Gdln ACOG Testing 30-65 Normal [facility] Comment on above: Performed By: #### [id number] ####[facility] [address] [place] [address]DrChuck Henderson DIAGNOSIS: Comment Normal [facility] Comment on above: Result Comment: NEGA TIVE FOR INTRAEPITHELIAL LESION OR MALIGNANCY. Performed at: WB Performed By: #### [id number] ####[facility] [address] [place], [place] [address]DrChuck Henderson HPV Aptima Negative Normal Negative [facility] Comment on above: Result Comment: This nucleic acid amplification test detects fourteen high-risk HPV types (16,18,31,33,35,39,45,51,52,56,58,59,66,68) without differentiation. Performed at: =G Performed By: #### [id number] ####[facility] [address] [place], [place] [address]Dr. Francisca Henderson Methodology: Comment Normal [facility] [facility] Comment on above: Result Comment: This liquid based ThinPrep(R) pap test was screened with the use of an image guided system. Performed at: WB Performed By: [id number] ####[facility] [address] [place], [place] [address]Dr. Francisca Henderson Note: Comment Normal [facility] Comment on above: Result Comment: The Pap smear is a screening test designed to aid in the detection of premalignant and malignant conditions of the uterine cervix. It is not a diagnostic procedure and should not be used as the sole means of detecting cervical cancer. Both false-positive and false-negative reports do occur. . Performed at: WB Performed By: #### [id number] ####[facility] [id number] [place], [place] [address]Dr. Francisca Henderson Performed by: Comment Normal [facility] Comment on above: Result Comment: Pamela Yepez, [employer] (ASCP) Performed at: WB Performed By: #### [id number] ####[facility] [id number] [place], [place] [address]Dr. Francisca Henderson Specimen adequacy: Comment Normal [facility] Comment on above: Result Comment: Sati sfactory for evaluation. Endocervical and/or squamous metaplastic cells (endocervical component) are present. Performed at: WB Performed By: #### [id number] ####[facility] [address] [place], [place] [address]Dr. Francisca Henderson LITHIUMon 06-21-2022 [facility] (Eskalith(R)), Serum 1.3 mmol/L Invalid Interpretation Code 0.5-1.2 [facility] Comment on above: Result Comment: Plas ma concentration of 0.5 - 0.8 mmol/L are advised for long-term use; concentrations of up to 1.2 mmol/L may be necessary during acute treatment. Detection Limit = 0.1 <0.1 indicates None Detected Patient drug level exceeds published reference range. Evaluate clinically for signs of potential toxicity. Performed By: #### L ITHIUM ####[facility] [address] [address]Dr. Francisca Henderson ELECTROLYTESon 06-20-2022 Anion gap [Moles/Vol] 11.8 mmol/L Normal [facility] Comment on above: Performed By: #### E LEC #### [facility] [address] [address] [address] Francisca Henderson Chloride [Moles/Vol] 100 mmol/L Normal 98-107 [facility] Comment on above: Performed By: #### E LEC #### [facility] [address] [address] [address] Francisca Henderson CO2 [Moles/Vol] 28.4 mmol/L Normal 21.0-32.0 [facility] Comment on above: Performed By: #### E LEC #### [facility] [address] [address] [address] Francisca Henderson Potassium [Moles/Vol] 4.2 mmol/L Normal 3.5-5.1 [facility] Comment on above: Performed By: #### E LEC #### [facility] [address] [address] [address] Francisca Henderson Sodium [Moles/Vol] 136 mmol/L Normal 136-145 [facility] Comment on above: Performed By: #### E LEC #### [facility] [address] [address] [address] Francisca Henderson LITHIUMon 02-10-2022 [facility] [place] (Eskalith(R)), Serum 0.4 mmol/L Critically low 0.5-1.2 [facility] Comment on above: Result Comment: Plas ma concentration of 0.5 - 0.8 mmol/L are advised for long-term use; concentrations of up to 1.2 mmol/L may be necessary during acute treatment. Detection Limit = 0.1 <0.1 indicates None Detected Performed By: #### L ITHIUM #### [facility] [address] [address] [address] Francisca Henderson ELECTROLYTESon 02-09-2022 Anion gap [Moles/Vol] 10.1 mmol/L Normal [facility] Comment on above: Performed By: #### E LEC #### [facility] [address] [address] [address] Francisca Henderson Chloride [Moles/Vol] 103 mmol/L Normal 98-107 [facility] Comment on above: Performed By: #### E LEC #### [facility] [address] [address] [address] Francisca Henderson CO2 [Moles/Vol] 29.3 mmol/L Normal 22.0-30.0 [facility] Comment on above: Performed By: #### E LEC #### [facility] [address] [address] [address] Francisca Henderson Potassium [Moles/Vol] 4.4 mmol/L Normal 3.4-5.0 [facility] Comment on above: Performed By: #### E LEC #### [facility] [address] [address] [address] Francisca Henderson Sodium [Moles/Vol] 138 mmol/L Normal 137-145 [facility] Comment on above: Performed By: #### E LEC #### [facility] [address] [place] [address] Dr. Francisca Henderson Social History Date Type Detail Facility Start: 11-12-2023 Alcohol intake Ex-drinker (finding) [facility] Start: 10-28-2023 End: 10-29-2023 History of Social function [facility] Start: 10-28-2023 End: 10-29-2023 Humiliation, Afraid, Rape, and Kick questionnaire [HARK] [facility] Start: 10-27-2023 End: 01-31-2024 Tobacco smoking status NHIS Ex-smoker [facility] are Start: 10-27-2023 Tobacco Comment 6-10 cigarettes/day [facility] Start: 10-27-2023 Alcohol Comment caffeine 2-3 c ups per day [facility] Start: 1980 Sex Assigned At Not on file [facility] History of tobacco use Current smoker [facility] History of tobacco use Cigarette Smoker [facility] Within the last year , have you been afraid of your partner or ex-partner? Patient refused [facility] Within the last year , have you been kicked, hit, slapped, or otherwise physically hurt by your partner or ex-partner? No [facility] Do you belong to any clubs or organizations such as religious groups, unions, fraternal or athletic groups, or [...] to buy more. Sometimes true [facility] Vital Signs Date Time Vital Sign Value Performing Clinician Lukas aragon 01-31-2024 14:30-0400 Blood Pressure Location Adarsh KYLEE Taasera [facility] 01-31-2024 14:30-0400 Diastolic blood pressure 74 mm[Hg] Adarsh ADAMSIIZI group [facility] [place] 01-31-2024 14:30-0400 Heart rate 94 /min Adarsh ADAMSL [facility] 01-31-2024 14:30-0400 Respiratory rate 16 /min Adarsh ADAMSL [facility] 01-31-2024 14:30-0400 Systolic blood pressure 112 mm[Hg] Adarsh ADAMSL Taasera [facility] Functional Status Date Assessment Result Facility 01-31-2024 Functional Status N/A [facility] [place] Clinical Note 02-02-2024 Note Date & Type [...] Rectal bleeding (K62 (more content not included)... [facility] Comment on above: Result Comment: Elec tronically Signed By: KYLEE BERMAN, Adarsh Gunderson.[email or web address]\Date and Time Signed: 02/02/24 13:48 EDT Evaluation + Plan note Note Date & Type Note Facility Evaluation + Plan note Future Appointments Appointment Date:04/07/2024 10:00:00 AM Scheduled Provider:Sophia BERMAN, Дмитрий Spring Location:[facility] Appointment Type: Post Op 30 [facility] [place] Evaluation note Note Date & Type Note Facility Evaluation note Diagnosis Atypical hyperplasia of breast- Primary Abnormal mammogram of right breast documented in this encounter [facility] Hospital course Narrative Note Date & Type Note Facility Hospital course Narrative No data available for this section [facility] Hospital Discharge instructions Note Date & Type Note Facility Hospital Discharge instructions No data available for this section [facility] Progress note Note Date & Type Note Facility Progress note No data available for this section [facility] Summary Purpose Family History No Family History [...] with and without IV contrast Norma Benavides, INVESTMENT SPECIALIST [address] [place] [address] Referral ID Status Reason Start Date Expiration Date V isits Requested Visits Authorized [id number] Pending Review 12/02/2023 05/30/2024 1 1 Specialty Diagnoses / Procedures Referred By Citlaly celis Referred To Contact Diagnoses Atypical hyperplasia of breast Abnormal mammogram of right breast Procedures Left breast MR with and without IV contrast Norma Benavides NP [address] [place] [address] Referral ID Status Reason Start Date Expiration Date V isits Requested Visits Authorized [id number] Pending Review 12/02/2023 05/30/2024 1 1 Additional Source Comments INFORMATION SOURCE (unrecogn ized section and content) DATE CREATED AUTHOR 09/27/2022 [facility] DATE CREATED AUTHOR AUTHOR'S ORGANIZ ATION 01/14/2024 [facility] DATE CREATED AUTHOR AUTHOR'S ORGANIZ ATION 02/20/2024 [facility] EPIC DATE CREATED AUTHOR AUTHOR'S ORGANIZ ATION 03/20/2024 [facility] Care Teams (unrecognized sec tion and content) Water Inspector Relationship Specialty Start Date End Date Farzad Lawler MD [address] [place] [address] PCP - General Family Medicine 10/23/23 Norma Benavides NP [address] [place] [address] Nurse Practitioner Family Medicine 10/23/23 [...] BE BASED ON THE PRIMARY CLINICAL RECORDS. [facility] [employer] [facility]. provides no warranty or guarantee of the accuracy or completeness of information in this document.
== END 2024-04-01 11:55 | disposition home or self-care (01) ==
PROVIDERS: PCP Nurse Practitioner; Visit Provider Surgery
PROC: (CPT 400; principal; 2024-04-01 08:50)
DX: N60.21 Fibroadenosis of right breast (principal); N60.81 Other benign mammary dysplasias of right breast; N60.91 Unspecified benign mammary dysplasia of right breast; Z86.16 Personal history of COVID-19; Z87.891 Personal history of nicotine dependence; K21.9 Gastro-esophageal reflux disease without esophagitis
CPT/HCPCS: 19301; 19285; 36415; 76098; 84703; 88307; A4648; J0131; J0665; J0690; J1110; J1885; J2405; J2704; J3010

== ENCOUNTER 2024-09-05 09:00 | Outpatient (OUT) | payer MEDICAID, SELFPAY ==
--- OUTSIDE RECORDS SUMMARY | 2024-09-05 09:04 | XMS_ITS | CCD ---
Author Organization [facility] Care Team Providers Care Supervisor Estimator And Drafter Name Role Phone AICHHOLZ, BIOLOGY INSTRUCTOR NORMA Admitting Unavailable AICHHOLZ, BIOLOGY INSTRUCTOR NORMA Attending Unavailable AICHHOLZ, BIOLOGY INSTRUCTOR NORMA Primary Care Unavailable AICHHOLZ, BIOLOGY INSTRUCTOR NORMA Consulting Unavailable KARASIK, DR MUÑOZ Admitting Unavailable KARASIK, DR MUÑOZ Attending Unavailable AICHHOLZ, BIOLOGY INSTRUCTOR NORMA Primary Care Unavailable KARASIK, DR MUÑOZ Consulting Unavailable [place], DR MAIN Consulting Unavailable AICHHOLZ, BIOLOGY INSTRUCTOR NORMA Admitting Unavailable AICHHOLZ, BIOLOGY INSTRUCTOR NORMA Attending Unavailable AICHHOLZ, BIOLOGY INSTRUCTOR NORMA Primary Care Unavailable AICHHOLZ, BIOLOGY INSTRUCTOR NORMA Consulting Unavailable MISC, DR DUMONT Admitting Unavailable MISC, DR DUMONT Attending Unavailable AICHHOLZ, BIOLOGY INSTRUCTOR NORMA Primary Care Unavailable MISC, DR DUMONT Consulting Unavailable MISC, DR DUMONT Admitting Unavailable MISC, DR DUMONT Attending Unavailable AICHHOLZ, BIOLOGY INSTRUCTOR NORMA Primary Care Unavailable MISC, DR DUMONT Consulting Unavailable KARASIK, DR MUÑOZ Admitting Unavailable KARASIK, DR MUÑOZ Attending Unavailable AICHHOLZ, BIOLOGY INSTRUCTOR NORMA Primary Care Unavailable KARASIK, DR MUÑOZ Consulting Unavailable ZIEBER, DR PARVEEN Lopez Consulting Unavailable MISC, DR DUMONT Admitting Unavailable MISC, DR DUMONT Attending Unavailable AICHHOLZ, BIOLOGY INSTRUCTOR NORMA Primary Care Unavailable KARASIK, DR MUÑOZ Admitting Unavailable KARASIK, DR MUÑOZ Attending Unavailable AICHHOLZ, BIOLOGY INSTRUCTOR NORMA Primary Care Unavailable KARASIK, DR MUÑOZ Consulting Unavailable Aichholz GERIATRIC PHYSICIAN, Norma Unavailable Farzad Lawler MD Primary Care Provider [phone] NORMA BENAVIDES Primary Care Physician Norma Benavides Primary Care Provider [phone] Norma Benavides Attending Provider [phone] MD Adarsh Fish Attending Provider [phone] Adarsh Fish Admitting Unavailable Norma Benavides Primary Care Unavailable Abe, Adarsh Lopez Attending Unavailable Norma Benavides Attending Unavailable Norma Benavides Primary Care Unavailable Norma Benavides Admitting Unavailable Adarsh FISH Attending Unavailable Дмитрий Cortes Attending Unavailable NILRadha, Adarsh Lopez Attending Unavailable NILL, Adarsh Lopez Attending Unavailable BEN PRABHAKAR CNP Primary Care Unavailable NILL, Adarsh Lopez Attending Unavailable ABE, Adarsh Lopez Attending Unavailable MAKAYLA, NORMA Attending Unavailable MALGORZATAHOLMartín, NORMA Attending Unavailable NORMA BENAVIDES Attending Unavailable APLERICKA LONDONO Attending Unavailable APLERICKA LONDONO Referring Unavailable Allergies Allergy Classification Reported Allergen(s) Allergy Type Date of Onset Reaction(s) Facility Anti-Epileptic Agents (1 source) lamoTRIgine; Translations: [lamotrigine] Drug Allergy Cutaneous eruption (morphologic abnormality) [facility] (1 source) lamoTRIgine Drug Allergy 2 [facility] Repository (2 sources) Lamotrigine; Translations: [lamoTRIgine] Allergy to substance 3 [facility] (2 sources) lamoTRIgine; Translations: [lamotrigine] Drug Allergy Cutaneous eruption (morphologic abnormality) [facility] (1 source) lamoTRIgine Drug Allergy 1 [facility] Repository (1 source) lamoTRIgine; Translations: [LaMICtal ODT] Drug Allergy [facility] Repository Medications Current Medications Medication Drug Class(es) Dates Sig (Normalized) Sig (Original) ARIPiprazole 15 mg oral tablet (4 sources) Atypical Antipsychotic Start: 10-15-2023 take 1 tablet by mouth at bedtime Abilify 15 mg Tab 15 mg = 1 tab(s), Oral, Bedtime, Refills(s) 0 Start Date: 11/27/23 Status: Ordered busPIRone hydrochloride 15 mg oral tablet (4 sources) Start: 10-15-2023 take 1 tablet by mouth twice daily busPIRone 15 mg Tab 15 mg = 1 tab(s), Oral, BID, Refills(s) 0 Start Date: 11/27/23 Status: Ordered OXcarbazepine 150 mg oral tablet (4 sources) Anti-epileptic Agent Start: 10-15-2023 take 1 tablet by mouth twice daily Trileptal 150 mg Tab 150 mg = 1 tab(s), Oral, BID, Refills(s) 0 Start Date: 11/27/23 Status: Ordered sertraline 100 mg oral tablet (4 sources) Serotonin Reuptake Inhibitor Start: 09-29-2023 take 1 tablet by mouth once daily Zoloft 100 mg Tab 100 mg = 1 tab(s), Oral, Daily, Refills(s) 0 Start Date: 11/27/23 Status: Ordered Completed/Discontinued Medications Medication Drug Class(es) Dates Sig (Normalized) Sig (Original) propranolol hydrochloride 10 mg oral tablet (2 sources) beta-Adrenergic Perez Start: 04-02-2024 propranolol 10 mg Tab 60 EA, 0 Refill(s), take 1 tablet by mouth twice a day if needed for anxiety, Refills(s) 0 Start Date: 04/02/24 Status: Ordered Problems Active Problems Problem Classification Problem Date Documented Date Episodic/Chronic Anxiety disorders (5 sources) Post-traumatic stress disorder, unspecified; Translations: [Generalized anxiety disorder] Onset: 2 11-17-2019 Chronic Gastrointestinal hemorrhage (4 sources) Rectal hemorrhage; Translations: [Hemorrhage of anus and rectum] Onset: 4 11-12-2023 Episodic Genitourinary symptoms and ill-defined conditions (1 source) Microscopic hematuria; Translations: [Other microscopic hematuria] Onset: 4 11-05-2023 Episodic Headache; including migraine (3 sources) Migraine 03-02-2019 Chronic Immunizations and screening for infectious disease (1 source) Encounter for screening for human papillomavirus (HPV); Translations: [ENC SCREENING HUMAN PAPILLOMAVIRUS] Onset: 2 Episodic Malaise and fatigue (4 sources) Chronic fatigue syndrome; Translations: [Chronic fatigue syndrome] Onset: 4 10-29-2023 Chronic Mood disorders (8 sources) Bipolar disorder, current episode mixed, severe, without psychotic features; Translations: [Bipolar affective disorder, current episode mixed] Onset: 2 Chronic Mycoses (1 source) Candidiasis of vagina; Translations: [Vaginal yeast infection] Onset: 4 11-05-2023 Episodic Nonmalignant breast conditions (5 sources) Fibrocystic disease of breast; Translations: [Diffuse cystic mastopathy of right breast] Onset: 4 11-27-2023 Chronic Nonmalignant breast conditions (19 sources) Mammographic microcalcification found on diagnostic imaging of breast; Translations: [Hypertrophy of breast] Onset: 2 Episodic Other circulatory disease (4 sources) Raynaud's disease; Translations: [Raynaud's syndrome without gangrene] Onset: 4 10-29-2023 Chronic Other gastrointestinal disorders (2 sources) Altered bowel function 02-02-2024 Episodic Other inflammatory condition of skin (3 sources) Psoriasis 11-27-2023 Chronic Other nutritional; endocrine; and metabolic disorders (5 sources) Polydipsia; Translations: [POLYDIPSIA] Onset: 2 Episodic Other nutritional; endocrine; and metabolic disorders (1 source) Unintentional weight loss; Translations: [Abnormal weight loss] Onset: 4 10-29-2023 Episodic Other screening for suspected conditions (not mental disorders or infectious disease) (9 sources) Encounter for screening for malignant neoplasm of cervix; Translations: [Mammography abnormal] Onset: 2 Episodic Other skin disorders (3 sources) Cystic acne 11-27-2023 Episodic Other skin disorders (3 sources) Hidradenitis 11-27-2023 Episodic Schizophrenia and other psychotic disorders (1 source) Unspecified psychosis not due to a substance or known physiological condition; Translations: [UNS PSYCHOS D/O NOT SUBSTNC/PHYSIOL] Onset: 2 Chronic Skin and subcutaneous tissue infections (5 sources) Local infection of the skin and subcutaneous tissue, unspecified; Translations: [Cutaneous abscess, unspecified] Onset: 2 Episodic Unclassified (3 sources) Body mass index 20-24 - normal 01-31-2024 Unclassified (1 source) Unspecified benign mammary dysplasia of right breast; Translations: [Unspecified benign mammary dysplasia of right breast] Onset: 4 Past or Other Problems Problem Classification Problem Date Documented Da te Episodic/Chronic Other aftercare (1 source) 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; Translations: [OTH LANGUAGE PATH 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 THERAPY] Onset: 06-22-2022 Episodic Residual codes; unclassified (1 source) Anterograde amnesia; Translations: [ANTEROGRADE AMNESIA] Onset: 06-22-2022 Episodic Results Test Name Value Interpretation Reference Range Facility Pathology Noteon 04-16-2024 Pathology Note [id number]#1.00T IFF [facility] Pathology Note [id number]#1.00TI FF [facility] Pathology Note [id number]#1.00TI FF [facility] RAD - Ultrasound Reporton RAD - Ultrasound Report [id number]#1.00TI FF [facility] Reminderson 04-15-2024 Reminders - From: Lissette Kraft LPN To: GSN - Clinical; Sent: 04/15/2024 08:12:31 EDT Show up: 09/16/2024 07:00:00 EST Subject: mammogram recall Due Date/Time: 10/02/2024 07:00:00 EST Reminder/Recall Patient due for right diagnostic mammogram 10/02/24 to establish new baseline post lumpectomy completed 04/02/24. Normal [facility] Ambulatory Visit Summaryon 0 04-14-2024 Ambulatory Visit Summary GAGEKATHRINE FARRELLCINDY Mora :1980 Visit Date:04/14/2024 Ambulatory Visit Instructions Your Diagnosis Fibrocystic changes of right breast Radial scar of right breast Atypical lobular hyperplasia of right breast Your Care Team Attending Physician - ABE BERMAN, Adarsh Lopez Primary Care Physician - NORMA BENAVIDES CNP This Is Your Medications List Contact prescribing physician if questions or concerns aripiprazole (Abilify 15 mg Tab) busPIRone (busPIRone 15 mg Tab) oxcarbazepine (Trileptal 150 mg Tab) propranolol (propranolol 10 mg Tab) sertraline (Zoloft 100 mg Tab) Procedures Performed Biopsy of breast, EA - Endometrial ablation, Insertion of IUD. Medications What How Much When Instructions Unchanged [...] prescribing physician if questions or concerns Unchanged propranolol (propranolol 10 mg Tab) 60 EA, 0 Refill(s), take 1 tablet by mouth twice a day if needed for anxiety Contact prescribing physician if questions or concerns Unchanged sertraline (Zoloft 100 mg Tab) 1 Tablets By Mouth Every day Contact prescribing physician if questions or concerns Allergies lamoTRIgine (Rash) Problems Ongoing - Any problem that you are currently receiving treatment for. Anxiety Atypical ductal hyperplasia of right breast Atypical lobular hyperplasia of right breast BMI 24.0-24.9, adult Change in bowel habits Chronic fatigue syndrome Cystic acne Extremely dense tissue of both breasts on mammography Fibrocystic breast Fibrocystic changes of right breast Hidradenitis Migraine Mild depressed bipolar I disorder Psoriasis Radial scar of right breast Raynaud disease Rectal bleeding Patient Survey You may receive a survey via text or e-mail asking about your office visit. Please share your experience with us by completing your survey. We appreciate your feedback and thank you for choosing us for your care. Normal [facility] General Surgery Office/Clini c Noteon 04-14-2024 General Surgery Office/Clinic Note Chief Complaint post operative follow up HPI Staff 12 day post operative follow up post right breast lumpectomy. Reports intermittent discomfort, no use of pain medication. Denies bleeding or drainage. Reports some ecchymosis. Denies excessive edema. History of Present Illness 12 days s/p right breast lumpectomy due to atypical ductal hyperplasia on previous biopsy; pathology from [facility] with radial scar, atypical lobular hyperplasia, sclerosing adenosis, apocrine metaplasia and microcysts. doing well, mild soreness, no pain meds; no drainage from incision. Review of Systems ROS - Provider Constitutional: [...] diarrhea, no constipation, no blood in stool, no change in bowel habits, no abdominal pain, [...] and are negative or noncontributory. Physical Exam skin: incision healing well, no erythema or drainage, small area of ecchymosis. Assessment/Plan 1. Fibrocystic changes of right breast (N60.11: Diffuse cystic mastopathy of right breast) doing well, recommend right breast diagnostic mammogram in 6 months for new baseline study; call sooner if problems/questions. 2. Radial scar of right breast (N64.89: Other specified disorders of breast) see # 1 3. Atypical lobular hyperplasia of right breast (N60.91: Unspecified benign mammary dysplasia of right breast) see # 1 Follow-up No qualifying data available Problem List/Past Medical History Ongoing Anxiety Atypical ductal hyperplasia of right breast Atypical lobular hyperplasia of right breast BMI 24.0-24.9, adult Change in bowel habits Chronic fatigue syndrome Cystic acne Extremely dense tissue of both breasts on mammography Fibrocystic breast Fibrocystic changes of right breast Hidradenitis Migraine Mild depressed bipolar I disorder Psoriasis Radial scar of right breast Raynaud disease Rectal bleeding Historical No qualifying data Procedure/Surgical History Biopsy of breast, EA - Endometrial ablation, Insertion of IUD. Medications Abilify 15 mg Tab, 15 mg= 1 tab(s), Oral, Bedtime busPIRone 15 mg Tab, 15 mg= 1 tab(s), Oral, BID propranolol 10 mg Tab Trileptal 150 mg Tab, 150 mg= 1 tab(s), Oral, BID Zoloft 100 mg Tab, 100 mg= 1 tab(s), Oral, Daily Allergies lamoTRIgine (Rash) Social History Alcohol - Denies Alcohol Use, 11/17/2019 Employment/School Unemployed, 11/17/2019 Home/Environment Lives with Children, Significant other. Living situation: Home/Independent., 11/17/2019 Substance Abuse - Denies Substance Abuse, 11/17/2019 Tobacco Former smoker, quit more than 30 days ago Tobacco Use:. Never Smokeless Tobacco Use:. Cigarettes, .50 per day. 16 year(s). Total pack years: 8. Started age 22.0 Years. Stopped age 38 Years. Previous treatment: None. Household tobacco concerns: No., 01/31/2024 Family History Alcoholism: Mother. Anxiety: Grandparent. Asthma: Mother and Sister. Bipolar: Mother. Depression: Sister and Grandparent. Pancreatic adenocarcinoma: Mother. Immunizations Vaccine Date Status SARS-CoV-2 (COVID-19) mRNAMUL.ORD![id number] 09/05/2022 Recorded SARS-CoV-2 (COVID-19) mRNA-1273 vaccine 10/01/2021 Recorded SARS-CoV-2 (COVID-19) mRNA-1273 vaccine 08/30/2021 Recorded Normal [facility] Comment on above: Result Comment: Elec tronically Signed By: ABE BERMAN, Adarsh Myers\Date and Time Signed: 04/14/24 13:40 EDT Insurance Correspondenceon 0 04-03-2024 Insurance Correspondence [id number]#1.00 TIFF [facility] Operative Reporton Operative Report [id number]#1.00T IFF [facility] Pathology Noteon 04-03-2024 Pathology Note [id number]#1.00TI FF Normal [facility] Lab Reportson 04-02-2024 Lab Reports [id number]#1.00TI FF Normal [facility] RAD - Ultrasound Reporton RAD - Ultrasound Report [id number]#1.00T IFF Normal [facility] Amos 04-01-2024 L Specimen: [id number] Received: 04/01/24 Status: TONY Req Num: [id number] Spec Type: Surgical Subm Dr: Adarsh Fish MD FACS Tissues: A Breast Lumpectmy/Mass - Requiring Micros Eval of Margins (RT BREAST TISSUE) Procedures: HE/46, Gross/Micro L5 Age/ Patient Sex Location Account Attending Physician Arik Alexander 43/F LABELL [id number] Adarsh Fish MD FACS SPEC NUM: [id number] RECD: 04/01/24 STATUS: TONY FARRELL NUM: [id number] KERWIN: 04/01/[address]: Adarsh Fish MD FACS ENTERED: 04/01/[address] [facility] [address]: Robyn Lara SPEC TYPE: Surgical DEPT: KATIE MERCADO ORDERED: HE/46, Gross/Micro L5 ORDERED: HE/46, Gross/Micro L5 Supplemental Report Addendum 1 Entered: 04/09/24 This case was sent to [facility] for consultation. Their diagnosis is as follows: -Multiple foci of atypical ductal hyperplasia. -Background breast tissue with radial scar, atypical lobular hyperplasia partially involving sclerosing adenosis, usual ductal hyperplasia, columnar cell change, apocrine metaplasia, and microcysts with associated microcalcifications. Please see attached consultation report from [facility] for diagnostic details. Addendum Signed (signature on file) Charley Pfeiffer MD 04/09/242015 Pathological Diagnosis Preliminary report Lesion, right breast, lumpectomy: Proliferative fibrocystic change with sclerosing adenosis, apocrine metaplasia and scattered foci of atypical ductal hyperplasia (ADH). Pending consultation. Specimen: [id number] Received: 04/01/24 Status: TONY Solomon Num: [id number] Spec Type: Surgical Subm Dr: Adarsh Fish MD FACS Tissues: A Breast Lumpectmy/Mass - Requiring Micros Eval of Margins (RT BREAST TISSUE) Procedures: HE/46, Gross/Micro L5 Patient: Arik Alexander [id number] (Continued) Specimen: [id number] Received: 04/01/24 (Continued) Pathological Diagnosis (Continued) Signed (signature on file) Charley Pfeiffer MD 04/02/24 1705 Specimen: [id number] Received: 04/01/24 Status: TONY Carbajal Num: [id number] Spec Type: Surgical Subm Dr: Adarsh Fish MD FACS Tissues: A Breast Lumpectmy/Mass - Requiring Micros Eval of Margins (RT BREAST TISSUE) Procedures: MAYANK/Isha, Gross/Micro L5 Patient: Arik Alexander [id number] (Continued) Specimen: [id number] Received: 04/01/24 (Continued) Pathological Diagnosis (Continued) Clinical Information Atypical ductal hyperplasia right breast Gross Description Received in formalin, labeled with the patient's name, date of and right breast tissue is an 64.1 g, oriented breast measuring 2.6 cm medial to lateral, 6.1 cm superior to inferior, 7.4 cm anterior to posterior. There is a needle localization wire free-floating within the specimen container. The specimen is inked using the standard ink protocol: superior-red, inferior-blue, medial-yellow, lateral-orange, anterior-green, posterior-black. The tissue has been serially sectioned from anterior to posterior into 17 numbered slabs. These slabs reveal cut surfaces comprised of approximately 95% fibrous tissue and 5% adipose tissue. A 0.4 x 0.3 by 0.1 cm dome-shaped cyst is located within slab #6 and comes to within 1.3 cm medially 1.9 cm inferiorly, 1.0 cm laterally and 1.6 cm superiorly. The remaining dense, fibrous cut surface contains multiple cystic areas ranging from 0.5 to 0.1 cm. There is a 0.2 x 0.1 cm small focus of possible calcification located within slab #8 and comes to within 1.0 cm medially, 2.0 cm inferiorly, 2.6 cm superiorly and 1.5 cm laterally. The specimen is entirely submitted in cassettes A1-A46 as follows: A1-A2 = slab 1 (anterior margin), A3 = slab 2 A4-A5 = slab 3 A6?A8 = slab 4 A9?A11 = slab 5 A12?A16 = slab 6(A15- area containing dome cyst) A17?A19 = slab 7 A20?A23 = slab 8(A21-A23 area containing possible calcification) A24?A28 = slab 9 A29?A32 = slab 10 A33?A35 = slab 11 A36?A38 = slab 12 A39?A40 = slab 13 A41?A42 = slab 14 A43?A44 = slab 15 A45 = slab 16 A46= slab 17 (posterior margin). ? Collection time: 04/01/2024 at 1015 Time placed in fixative: 04/01/2024 at 1055 Placed in 10% form (more content not included)... Normal [facility] Insurance Correspondenceon 0 03-18-2024 Insurance Correspondence [id number]#1.00 TIFF Normal [facility] Consent for Procedure/Surger yon 02-03-2024 Consent for Procedure/Surgery [id number]#1.00T IFF Normal [facility] Consent for Procedure/Surgery [id number]#1.00T IFF Normal [facility] Ambulatory Visit Summaryon 0 01-31-2024 Ambulatory Visit Summary ARIK ALEXANDER :1980 Visit Date:01/31/2024 Ambulatory Visit Instructions Your Care Team Attending Physician - ABE BERMAN, Adarsh Lopez Primary Care Physician - [...] for choosing us for your care. Normal [facility] RAD - MRI Reporton RAD - MRI Report [id number] [facility] [id number]#1.00T IFF Normal [facility] MR breast BI wo/w con CADon 01-07-2024 MR breast BI wo/w con CAD [facility] [place] [address] [place] [address] MRI Report Signed Patient: Arik Alexander MR#: [id number] : 1980 Acct:[id number] Age/Sex: 43 / F ADM Date: 01/07/24 Loc: MR Room: Type: [facility] Attending Dr: Norma Benavides Copies to: CAMRYN [...] All imaged data was reviewed using the BoostUp system. The postcontrast images were subtracted and [...] Findings(s) FOLLOW UP: IMM Impression dictated by: Lamnot Daniel Jr., D.O.01/08/2024 9:48 AM Dictation Location: [place] [address] Transcribed By: [facility] 01/08/24 0912 Dictated By: Lamont Daniel Jr, DO 01/07/24 1530 Signed By: 01/08/24 0948 Normal [facility] Outside Mammographyon 2023 Outside Mammography [id number]#1.00T IFF Normal [facility] Physician Referralon 024 Physician Referral [id number]#1.00TI FF Normal [facility] Physician Referralon 024 Physician Referral [id number]#1.00T IFF Normal [facility] MAMMO POST BIOPSY RIGHTon MAMMO POST BIOPSY RIGHT Patient: ARIK ALEXANDER Exam Date: 09/13/2022 : 1980 Gender:F Ordering : DR TONI STEVE . Admission #: [id number] Family : Order #: [id number] CLICK HERE TO VIEW EXAM This report [...] Peralta M.D. on 09/25/2022 at 12:25 Normal [facility] MG STEREO CORE NDL W CLIP RT on 09-13-2022 MG STEREO CORE NDL W CLIP RT Patient: ARIK AELXANDER Exam Date: 09/13/2022 : 1980 Gender:F Ordering : DR TONI STEVE . Admission #: [id number] Family : Order #: [id number] CLICK HERE TO VIEW EXAM This report [...] Peralta M.D. on 09/25/2022 at 12:23 Normal [facility] HIV 1 AND 2 WITH REFLEXon HIV Screen 4th Generation wRfx Non-Reactive Normal Non Reactive [facility] Comment on above: Result Comment: HIV Negative HIV-1/HIV-2 antibodies and HIV-1 p24 antigen were NOT detected. There is no laboratory evidence of HIV infection. Performed By: #### H IV12 #### [facility] [address] [place] [address] Dr. Francisca Henderson RPR QUANTon 09-02-2022 Rapid Plasma Reagin, Quant Non-Reactive Normal NonRea<1:1 [facility] Comment on above: Result Comment: Plea se Note: This test does not meet current guidelines for screening and diagnosis of syphilis. This test is intended for following treatment response in patients being treated for syphilis infection. To screen for syphilis infection, a reflex cascade that includes both RPR and a treponema-specific assay should be utilized, such as Treponema pallidum (Syphilis) Screening Crawford (299064) or Rapid Plasma Reagin (RPR) Test With Reflex to Quantitative RPR and Confirmatory Treponema pallidum Antibodies (696107). Performed By: #### R PRQ ####[facility] [id number] [place] [address]Dr. Francisca Henderson CBC AUTO DIFFon 08-31-2022 BASO # 0.1 103/ul Normal 0.0-0.1 [facility] Comment on above: Performed By: #### C BC #### [facility] [address] [place] [address] Dr. Francisca Henderson Basophils/100 WBC (Bld) 1.1 % Normal 0.2-2.0 [facility] Comment on above: Performed By: #### C BC #### [facility] [address] [place] [address] Dr. Francisca Henderson EO # 0.3 103/ul Normal 0.0-0.7 [facility] Comment on above: Performed By: #### C BC #### [facility] [address] [place] [address] Dr. Francisca Henderson Eosinophils/100 WBC (Bld) 2.8 % Normal 0.9-7.0 [facility] Comment on above: Performed By: #### C BC #### [facility] [address] [place] [address] Dr. Fracnisca Henderson Erythrocyte distribution width (RBC) [Ratio] 12.3 % Normal 11.0-15.0 [facility] Comment on above: Performed By: #### C BC #### [facility] [address] [place] [address] Dr. Francisca Henderson Hematocrit (Bld) [Volume fraction] 39.4 % Normal 36.0-48.0 [facility] Comment on above: Performed By: #### C BC #### [facility] [address] [place] [address] Dr. Francisca Henderson Hemoglobin (Bld) [Mass/Vol] 12.8 g/dL Normal 12.0-16.0 [facility] Comment on above: Performed By: #### C BC #### [facility] [address] [place] [address] Dr. Francisca Henderson IG # 0.03 10e3/ul Normal 0.00-0.03 [facility] Comment on above: Performed By: #### C BC #### [facility] [address] [place] [address] Dr. Francisca Henderson IG % 0.3 % Normal 0.0-0.5 [facility] Comment on above: Performed By: #### C BC #### [facility] [address] [place] [address] Dr. Francisca Henderson LYMPH # 2.6 103/ul Normal 1.2-3.8 [facility] Comment on above: Performed By: #### C BC #### [facility] [address] [place] [address] Dr. Francisca Henderson Lymphocytes/100 WBC (Bld) 29.1 % Normal 20.5-60.0 [facility] Comment on above: Performed By: #### C BC #### [facility] [address] [place] [address] Dr. Francisca Henderson MANUAL DIFF REQ NO Normal [facility] Comment on above: Performed By: #### C BC #### [facility] [address] [place] [address] Dr. Francisca Henderson MCH (RBC) [Entitic mass] 29.6 pg Normal 26.7-34.0 [facility] Comment on above: Performed By: #### C BC #### [facility] [address] [place] [address] Dr. Francisca Henderson MCHC (RBC) [Mass/Vol] 32.5 g/dL Normal 29.9-35.2 [facility] Comment on above: Performed By: #### C BC #### [facility] [address] [place] [address] Dr. Francisca Henderson MCV (RBC) [Entitic vol] 91.0 fL Normal 81.0-99.0 [facility] Comment on above: Performed By: #### C BC #### [facility] [address] [place] [address] Dr. Francisca Henderson MONO # 0.5 103/ul Normal 0.3-0.8 [facility] Comment on above: Performed By: #### C BC #### [facility] [address] [place] [address] Dr. Francisca Henderson Monocytes/100 WBC (Bld) 5.3 % Normal 1.7-12.0 [facility] Comment on above: Performed By: #### C BC #### [facility] [address] [place] [address] Dr. Francisca Henderson NEUT # 5.4 103/ul Normal 1.4-6.5 [facility] Comment on above: Performed By: #### C BC #### [facility] [address] [place] [address] Dr. Francisca Henderson Neutrophils/100 WBC (Bld) 61.4 % Normal 43.0-75.0 [facility] Comment on above: Performed By: #### C BC #### [facility] [address] [place] [address] Dr. Francisca Henderson Platelet mean volume (Bld) [Entitic vol] 8.8 fL Critically low 9.5-13.5 [facility] Comment on above: Performed By: #### C BC #### [facility] [address] [place], [place] [address] Dr. Francisca Henderson PLT 451 103/ul Critically high 150-450 [facility] Comment on above: Performed By: #### C BC #### [facility] [address] [address] [address] Francisca Henderson RBC 4.33 106/ul Normal 4.20-5.40 [facility] Comment on above: Performed By: #### C BC #### [facility] [address] [id number] Francisca Henderson WBC 8.8 103/ul Normal 4.0-11.0 [facility] Comment on above: Performed By: #### C BC #### [facility] [address] [address] [address] Francisca Henderson MG MAMM DIAGNOSTIC 3D GREGG CA Don 08-31-2022 MG MAMM DIAGNOSTIC 3D GREGG CAD Patient: ARIK ALEXANDER Exam Date: 08/31/2022 : 1980 Gender:F Ordering : DR TONI STEVE . Admission #: [id number] Family : Order #: [id number] CLICK HERE TO VIEW EXAM RADIOLOGY REPORT [...] brain cancer at age 74. LOCATION: [facility] BREAST COMPOSITION: Extremely dense, which lowers [...] Nieves MD on 08/31/2022 at 15:33 Normal [facility] PROF 14(COMP METB)on 022 Albumin [Mass/Vol] 3.8 g/dL Normal 3.4-5.0 [facility] Comment on above: Performed By: #### C MP #### [facility] [address] [place] [address] Dr. Francisca Henderson Albumin/Globulin [Mass ratio] 1.0 {ratio} Normal [facility] Comment on above: Performed By: #### C MP #### [facility] [address] [place] [address] Dr. Francisca Henderson ALP [Catalytic activity/Vol] 89 U/L Normal 46-116 [facility] Comment on above: Performed By: #### C MP #### [facility] [address] [place] [address] Dr. Francisca Henderson ALT [Catalytic activity/Vol] 18 U/L Normal 14-59 [facility] Comment on above: Performed By: #### C MP #### [facility] [address] [place] [address] Dr. Francisca Henderson Anion gap [Moles/Vol] 6.3 mmol/L Normal [facility] Comment on above: Performed By: #### C MP #### [facility] [address] [place] [address] Dr. Francisca Henderson AST [Catalytic activity/Vol] 16 U/L Normal 15-37 [facility] Comment on above: Performed By: #### C MP #### [facility] [address] [place] [address] Dr. Francisca Henderson Bilirubin [Mass/Vol] 0.2 mg/dL Normal 0.2-1.0 [facility] Comment on above: Performed By: #### C MP #### [facility] [address] [address] [address] Francisca Henderson Calcium [Mass/Vol] 9.4 mg/dL Normal 8.5-10.1 [facility] Comment on above: Performed By: #### C MP #### [facility] [address] [address] [address] Francisca Henderson Chloride [Moles/Vol] 105 mmol/L Normal 98-107 [facility] Comment on above: Performed By: #### C MP #### [facility] [address] [address] [address] Francisca Henderson CO2 [Moles/Vol] 29.1 mmol/L Normal 21.0-32.0 [facility] Comment on above: Performed By: #### C MP #### [facility] [address] [place] [address] Dr. Francisca Henderson Creatinine [Mass/Vol] 0.99 mg/dL Normal 0.55-1.02 [facility] Comment on above: Performed By: #### C MP #### [facility] [address] [address] [address] Francisca Henderson EGFR-AF IVORIAN >60 Normal >=60 [facility] Comment on above: Performed By: #### C MP #### [facility] [address] [place] [address] Dr. Francisca Henderson EGFR-NON AF IVORIAN >60 Normal >=60 [facility] Comment on above: Performed By: #### C MP #### [facility] [address] [address] [address] Francisca Henderson Globulin (S) [Mass/Vol] 3.7 g/dL Normal [facility] Comment on above: Performed By: #### C MP #### [facility] [address] [address] [address] Francisca Henderson Glucose [Mass/Vol] 87 mg/dL Normal 74-106 [facility] Comment on above: Performed By: #### C MP #### [facility] [address] [place] [address] Dr. Francisca Henderson Potassium [Moles/Vol] 4.4 mmol/L Normal 3.5-5.1 [facility] Comment on above: Performed By: #### C MP #### [facility] [address] [address] [address] Francisca Henderson Protein [Mass/Vol] 7.5 g/dL Normal 6.4-8.2 [facility] Comment on above: Performed By: #### C MP #### [facility] [address] [address] [address] Francisca Henderson Sodium [Moles/Vol] 136 mmol/L Normal 136-145 [facility] Comment on above: Performed By: #### C MP #### [facility] [address] [address] [address] Francisca Henderson Urea nitrogen [Mass/Vol] 15.0 mg/dL Normal 7.0-18.0 [facility] Comment on above: Performed By: #### C MP #### [facility] [address] [address] [address] Francisca Henderson Urea nitrogen/Creatinine [Mass ratio] 15.2 mg/mg Normal [facility] Comment on above: Performed By: #### C MP #### [facility] [address] [address] [address] Francisca Henderson SED RATE [facility] 2021 SED RATE 24 mm/hr Critically high <=20 [facility] Comment on above: Performed By: #### S EDR #### [facility] [address] [place] [address] Dr. Francisca Henderson US BREAST GREGG LIMITEDon 11-0 US BREAST GREGG LIMITED Patient: ARIK ALEXANDER Exam Date: 08/31/2022 : 1980 Gender:F Ordering : DR TONI STEVE . Admission #: [id number] Family : Order #: [id number] CLICK HERE TO VIEW EXAM RADIOLOGY REPORT [...] brain cancer at age 74. LOCATION: [facility] BREAST COMPOSITION: Extremely dense, which lowers [...] Nieves MD on 08/31/2022 at 15:33 Normal [facility] CULTURE WOUNDon 07-12-2022 CULTURE WOUND Culture [...] S F Oxacillin >=4 R F Normal [facility] Comment on above: Performed By: #### W OUNDCX ####[facility] [address] [address]Dr. Imanila Santiago PAP ACOG PANEL 2: 30 to 65on 07-09-2022 . . Normal [facility] Comment on above: Result Comment: Perf ormed at: WB Performed By: #### [id number] ####[facility] [address] [place], [place] [address]Dr. Francisca Henderson Age Gdln ACOG Testing 30-65 Normal [facility] Comment on above: Performed By: #### [id number] ####[facility] [address] [place], [place] [address]Dr. Francisca Henderson DIAGNOSIS: Comment Normal [facility] Comment on above: Result Comment: NEGA TIVE FOR INTRAEPITHELIAL LESION OR MALIGNANCY. Performed at: WB Performed By: #### [id number] ####[facility] [address] [place], [place] [address]Dr. Francisca Henderson HPV Aptima Negative Normal Negative [facility] Comment on above: Result Comment: This nucleic acid amplification test detects fourteen high-risk HPV types (16,18,31,33,35,39,45,51,52,56,58,59,66,68) without differentiation. Performed at: =G Performed By: #### [id number] ####[facility] [address] [place], [place] [address]Dr. Francisca Henderson Methodology: Comment Normal [facility] Comment on above: Result Comment: This liquid based ThinPrep(R) pap test was screened with the use of an image guided system. Performed at: WB Performed By: #### [id number] ####[facility] [address] [place], [place] [address]Dr. Francisca Henderson Note: Comment Normal [facility] Comment on above: Result Comment: The Pap smear is a screening test designed to aid in the detection of premalignant and malignant conditions of the uterine cervix. It is not a diagnostic procedure and should not be used as the sole means of detecting cervical cancer. Both false-positive and false-negative reports do occur. . Performed at: WB Performed By: #### [id number] ####[facility] [address] [address]Dr. Francisca Henderson Performed by: Comment Normal [facility] Comment on above: Result Comment: Pamela Yepez, Gang Ripsaw Operator (ASCP) Performed at: WB Performed By: #### [id number] ####[facility] [address] [address]Dr. Francisca Henderson Specimen adequacy: Comment Normal [facility] Comment on above: Result Comment: Sati sfactory for evaluation. Endocervical and/or squamous metaplastic cells (endocervical component) are present. Performed at: WB Performed By: #### [id number] ####[facility] [address] [address]Dr. Francisca Henderson LITHIUMon 06-21-2022 [place] (Eskalith(R)), Serum 1.3 mmol/L Invalid Interpretation Code 0.5-1.2 [facility] Comment on above: Result Comment: Plas ma concentration of 0.5 - 0.8 mmol/L are advised for long-term use; concentrations of up to 1.2 mmol/L may be necessary during acute treatment. Detection Limit = 0.1 <0.1 indicates None Detected Patient drug level exceeds published reference range. Evaluate clinically for signs of potential toxicity. Performed By: #### L ITHIUM ####[facility] [address] [address]Dr. Francisca Henderson ELECTROLYTESon 06-20-2022 Anion gap [Moles/Vol] 11.8 mmol/L Normal [facility] Comment on above: Performed By: #### E LEC #### [facility] [address] [place] [address] Dr. Francisca Henderson Chloride [Moles/Vol] 100 mmol/L Normal 98-107 [facility] Comment on above: Performed By: #### E LEC #### [facility] [address] [place] [address] Dr. Francisca Henderson CO2 [Moles/Vol] 28.4 mmol/L Normal 21.0-32.0 [facility] Comment on above: Performed By: #### E LEC #### [facility] [address] [address] [address] Francisca Henderson Potassium [Moles/Vol] 4.2 mmol/L Normal 3.5-5.1 [facility] Comment on above: Performed By: #### E LEC #### [facility] [address] [address] [address] Francisca Henderson Sodium [Moles/Vol] 136 mmol/L Normal 136-145 [facility] Comment on above: Performed By: #### E LEC #### [facility] [address] [address] [address] Francisca Henderson LITHIUMon 02-10-2022 [place] (Eskalith(R)), Serum 0.4 mmol/L Critically low 0.5-1.2 [facility] Comment on above: Result Comment: Plas ma concentration of 0.5 - 0.8 mmol/L are advised for long-term use; concentrations of up to 1.2 mmol/L may be necessary during acute treatment. Detection Limit = 0.1 <0.1 indicates None Detected Performed By: #### L ITHIUM #### [facility] [address] [place] [address] Dr. Francisca Henderson ELECTROLYTESon 02-09-2022 Anion gap [Moles/Vol] 10.1 mmol/L Normal [facility] Comment on above: Performed By: #### E LEC #### [facility] [address] [place] [address] Dr. Francisca Henderson Chloride [Moles/Vol] 103 mmol/L Normal 98-107 [facility] Comment on above: Performed By: #### E LEC #### [facility] [address] [place] [address] Dr. Francisca Henderson CO2 [Moles/Vol] 29.3 mmol/L Normal 22.0-30.0 [facility] Comment on above: Performed By: #### E LEC #### [facility] [address] [place] [address] Dr. Francisca Henderson Potassium [Moles/Vol] 4.4 mmol/L Normal 3.4-5.0 [facility] Comment on above: Performed By: #### E LEC #### [facility] [address] [place], [place] [address] Dr. Francisca Henderson Sodium [Moles/Vol] 138 mmol/L Normal 137-145 [facility] Comment on above: Performed By: #### E LEC #### [facility] [address] [place], [place] [address] Dr. Francisca Henderson Vital Signs Date Time Vital Sign Value Performing Clinician Lukas aragon 01-31-2024 14:30-0400 Blood Pressure Location Adarsh NILL [facility] 01-31-2024 14:30-0400 Diastolic blood pressure 74 mm[Hg] Adarsh NILL [facility] 01-31-2024 14:30-0400 Heart rate 94 /min Adarsh NILL [facility] 01-31-2024 14:30-0400 Respiratory rate 16 /min Adarsh NILL [facility] 01-31-2024 14:30-0400 Systolic blood pressure 112 mm[Hg] Adarsh NILL [facility] 01-07-2024 13:58-0400 Body height 157.48 cm Norma Benavides Work Phone: [facility] 01-07-2024 13:58-0400 Body weight 58.96 kg Normaterrence Benavides Work Phone: [facility] Encounters Encounter Date Encounter Type Care Provider Facility Start: 06-15-2024 End: 06-15-2024 ambulatory ERICKA Baer APLING Not Available Start: 04-14-2024 End: 04-14-2024 ambulatory Adarsh FISH Facility:[facility] Start: 04-14-2024 End: 04-14-2024 Patient encounter procedure Adarsh FISH [facility] Start: 04-07-2024 End: 04-07-2024 ambulatory Дмитрий Cortes Facility:[facility] Start: 04-07-2024 End: 04-07-2024 Patient encounter procedure Дмитрий Cortes [facility] Start: 04-01-2024 End: 04-01-2024 ambulatory Norma Benavides Work Phone: [facility] Work Phone: Start: 04-01-2024 End: 04-01-2024 Departed Referred Norma Benavides Work Phone: [facility] Start: 04-01-2024 End: 04-01-2024 ambulatory Adarsh R BRYANL Facility:[id number] Start: 02-18-2024 End: 02-18-2024 ambulatory NORMA BENAVIDES Not Available Start: 01-31-2024 End: 01-31-2024 ambulatory Adarsh R NILL Facility:[facility] Start: 01-31-2024 End: 01-31-2024 Patient encounter procedure Adarsh R NILL [facility] Start: 01-07-2024 End: 01-07-2024 Patient encounter procedure Norma Benavides Work Phone: [facility] [place] Work Phone: Start: 01-07-2024 End: 01-07-2024 ambulatory Norma Fawad Benavides Facility:[facility] Start: 12-20-2023 ambulatory Adarsh R NILL Facility :[facility] Start: 12-02-2023 Orders Only Norma Benavides GERIATRIC PHYSICIAN Work Phone: [facility] Comment on above: Atypical hyperplasia of breast (Primary Dx); Abnormal mammogram of right breast Start: 11-14-2023 ambulatory BENManjinder PRABHAKAR PRECIOUS Facility: [facility] Start: 11-12-2023 End: 11-12-2023 ambulatory NORMA BENAVIDES Not Available Start: 10-29-2023 End: 10-29-2023 ambulatory NORMA BENAVIDES Not Available Start: 09-13-2022 End: 09-13-2022 ambulatory [...] Date Procedure Procedure Detail Performing Clinician Start: 01-07-2024 MRI of bilateral sotero asts with contrast Norma Benavides Work Phone: Start: 11-19-2023 Mammography Norma hinkle GERIATRIC PHYSICIAN Work Phone: Start: 07-03-2022 Microscopic observat ion [Identifier] in Cervix by Cyto stain Norma Benavides GERIATRIC PHYSICIAN Work Phone: Biopsy of breast Adarsh Garcia Endometrial ablation Adarsh FISH Insertion of intraut erine contraceptive device Adarsh FISH Plan of Treatment Date Care Activity Detail Author Start: 07-03-2025 Screening for malign ant neoplasm of cervix [facility] Start: 11-19-2024 Screening for malign ant neoplasm of breast Mammogram [facility] Start: 04-26-2024 Influenza vaccination Influenza Vacc ine (#1) [facility] Comment on above: Postponed from 06/28 (Patient Refused) Start: 12-25-2023 End: 12-25-2023 Patient encounter procedure 12/25/2023 1:40 PM EST Office Visit [facility] [address] [place] [phone] Makayla Norma, GERIATRIC PHYSICIAN [address] [place] [phone] [facility] Start: 12-02-2023 End: 01-30-2025 MR Breast - left WO and W contrast IV Left breast MR with and without IV contrast Imaging Routine Atypical hyperplasia of breast Abnormal mammogram of right breast Expected: 12/02/2023 (Approximate), Expires: 01/30/2025 [facility] Work Phone: Comment on above: Expected: 12/02/2023 (Approximate), Expires: 01/30/2025 Start: 12-02-2023 End: 01-30-2025 MR Breast - right WO and W contrast IV Right breast MR with and without IV contrast Imaging Routine Atypical hyperplasia of breast Abnormal mammogram of right breast Expected: 12/02/2023 (Approximate), Expires: 01/30/2025 [facility] Comment on above: Expected: 12/02/2023 (Approximate), Expires: 01/30/2025 Start: 2010 Screening for malign ant neoplasm of cervix HPV/Cotest [facility] Immunizations Immunization Date Immunization Notes Care Provider Fa cili 09-05-2022 SARS-CoV-2 (COVID-19 ) [id number] Adarsh FISH [facility] [place] 10-01-2021 SARS-CoV-2 (COVID-19 ) mRNA-1273 vaccine Adarsh FISH [facility] [place] 08-30-2021 SARS-CoV-2 (COVID-19 ) mRNA-1273 vaccine Adarsh FISH [facility] [place] 08-25-2020 influenza virus vaccine, unspecified formulation Norma Benavides NP Work Phone: [facility] Payers Date Payer Category Payer Medicaid [place] [id number] 2022-Present [address] [place] [address] [id number] 2022 Medicaid [id number] 1980 Unknown [id number] [id number]3 1980 Unknown [id number] 2.16.840.1.989702.3.579.2.593 1980 Unknown [id number] 2.16.840.1.075624.3.579.2.593 1980 Unknown [id number] 2.16.840.1.020974.3.579.2.593 1980 Unknown [id number] 2.16.840.1.814455.3.579.2.593 1980 Unknown [id number] 2.16.840.1.426066.3.579.2.593 1980 Unknown [id number] 2.16.840.1.470392.3.579.2.593 1980 Unknown [id number] 2.16.840.1.297319.3.579.2.593 1980 Unknown [id number] 2.16.840.1.015901.3.579.2.727 1980 Unknown [id number] 2.16.840.1.421459.3.579.2.727 1980 Unknown [id number] 2.16.840.1.946833.3.579.2.727 1980 Unknown [id number] 2.16.840.1.215063.3.579.2.727 1980 Unknown [id number] 2.16.840.1.729789.3.579.2.727 1980 Unknown [id number] 2.16.840.1.837996.3.579.2.727 1980 Unknown [id number] 2.16.840.1.672016.3.579.2.9 1980 Unknown [id number] 2.16.840.1.312734.3.579.2.1259 1980 Unknown [id number] 2.16.840.1.393986.3.579.2.9 1980 Unknown [id number] 2.16.840.1.677466.3.579.2.1259 1959 Self-pay 1959 Unknown [id number] Medicaid [place] Advantage [id number] Unknown [id number] 2.16.840.1.637138.3.579.2.531 Unknown [id number] 2.16.840.1.878007.3.579.2.531 Social History Date Type Detail Facility Start: 10-27-2023 End: 01-31-2024 Tobacco smoking status [facility] Ex-smoker [facility] Start: 04-01-2024 History of tobacco use Current smoke r [facility] History of tobacco use [facility]igarette [facility]oker [facility] Start: 11-12-2023 Alcohol intake Ex-drinker (finding) [facility] Start: 10-28-2023 End: 10-29-2023 History of Social function [facility] Start: 10-28-2023 End: 10-29-2023 Humiliation, Afraid, Rape, and Kick questionnaire [HARK] [facility] Within the last year , have you been afraid of your partner or ex-partner? Patient refused [facility] Within the last year , have you been kicked, hit, slapped, or otherwise physically hurt by your partner or ex-partner? No [facility] Do you belong to any clubs or organizations such as mu-ism groups, unions, fraternal or athletic groups, or [...] At Not on file [facility] Start: 1980 Sex Assigned At Female F [facility] Functional Status Date Assessment Result Facility 01-31-2024 Functional Status N/A [facility] General Surgery [place] Clinical Note 02-02-2024 Note Date & Type [...] Rectal bleeding (K62 (more content not included)... [facility] Comment on above: Result Comment: Elec tronically Signed By: ABE BERMAN, Adarsh Myers\Date and Time Signed: 02/02/24 13:48 EDT Evaluation + Plan note Note Date & Type Note Facility Evaluation + Plan note Future Appointments Appointment Date:04/07/2024 10:00:00 AM Scheduled Provider:Дмитрий Cortes MD Location:[facility] Appointment Type:GS Post Op 30 [facility] Surgery [place] Evaluation + Plan note Note Date & Type Note Facility Evaluation + Plan note Future Appointments Appointment Date:04/14/2024 01:00:00 PM Scheduled Provider:Adarsh FISH MD Location:[facility] Appointment Type:GS Post Op 15 [facility] Evaluation note Note Date & Type Note Facility Evaluation note Diagnosis Atypical hyperplasia of breast- Primary Abnormal mammogram of right breast documented in this encounter [facility] Evaluation note Note Date & Type Note Facility [facility] Hospital course Narrative Note Date & Type Note Facility Hospital course Narrative No data available for this section [facility] Hospital Discharge instructions Note Date & Type Note Facility Hospital Discharge instructions No data available for this section [facility] Progress note Note Date & Type Note Facility Progress note No data available for this section [facility] Summary Purpose Family History No Family History Records Found Relationship Condition Age at Onset Recorded Date/T james Not Specified Malignant neoplasm Unknown Unknown Hypertension Unknown sister Depression Unknown Advance Directives No Advanced Directives Records Found Advance Directive Response Recorded Date/ Time Advance Directives No November 11:19am Reason for Referral Specialty Diagnoses / Procedures Referred By Citlaly celis Referred To Contact Diagnoses Atypical hyperplasia of breast Abnormal mammogram of right breast Procedures Right breast MR with and without IV contrast Norma Benavides NP [address] [place] [address] Referral ID Status Reason Start Date Expiration Date V isits Requested Visits Authorized [id number] Pending Review 12/02/2023 05/30/2024 1 1 Specialty Diagnoses / Procedures Referred By Citlaly celis Referred To Contact Diagnoses Atypical hyperplasia of breast Abnormal mammogram of right breast Procedures Left breast MR with and without IV contrast Norma Benavides NP [address] [place] [address] Referral ID Status Reason Start Date Expiration Date V isits Requested Visits Authorized [id number] Pending Review 12/02/2023 05/30/2024 1 1 Additional Source Comments INFORMATION SOURCE (unrecogn ized section and content) DATE CREATED AUTHOR 09/27/2022 [facility] DATE CREATED AUTHOR AUTHOR'S ORGANIZ ATION 04/11/2024 [facility] DATE CREATED AUTHOR AUTHOR'S ORGANIZ ATION 04/17/2024 [facility] DATE CREATED AUTHOR AUTHOR'S ORGANIZ ATION 06/21/2024 [facility] [employer] Care Teams (unrecognized sec tion and content) Supervisor Estimator And Drafter Relationship Specialty Start Date End Date Farzad Lawler MD [address] [place] [address] PCP - General Family Medicine 10/23/23 Norma Benavides NP [address] [place] [address] Nurse Practitioner Family Medicine 10/23/23 Team Status: Active Member Role Status Dates Norma Benavides Primary Care Provider Active Team Status: Inactive Member Role Status Dates Norma Benavides Primary Care Provide r, Attending Provider Active Start: January 07, 2024 End: January 07, 2024 Team Status: Inactive Member Role Status Dates Norma Benavides Primary Care Provider Active Sta rt: April 01, 2024 End: April 01, 2024 Adarsh Fish MD FACS Attending Provider Active Start: April 01, 2024 End: April 01, 2024 Goals (unrecognized section and content) Goals may be documented in a n alternate section FOR RECORDS PERTAINING TO PATIENTS WHO ARE [...] BE BASED ON THE PRIMARY CLINICAL RECORDS. [employer] provides no warranty or guarantee of the accuracy or completeness of information in this document.
[2024-09-05 10:05] LABS: Chol HDL Ratio 2.8; Cholesterol 195 mg/dL (<=200); HDL Cholesterol 69 mg/dL (40-60); Triglycerides 43 mg/dL (<=150); VLDL CHOLESTEROL 8.6 mg/dL
[2024-09-05 10:26] LABS: Estimated Average Glucose 103 mg/dL; Glycohemoglobin A1C 5.2 % (4.5-6.2)
== END 2024-09-05 09:01 | disposition home or self-care (01) ==
LOC: LAB 09:01
PROVIDERS: PCP Nurse Practitioner
DX: Z92.29 Personal history of other drug therapy (principal)
CPT/HCPCS: 36415; 80061; 83036

== ENCOUNTER 2024-10-09 12:53 | Outpatient (OUT) | payer MEDICAID, SELFPAY ==
--- NOTE | 2024-10-09 | MM_ITS ---
Patient Name: ARIK LEMONS MR#: [id number] : 1980 Exam Date: 10/09/2024 Ordering Doctor: DR Adarsh Fish . RADIOLOGY REPORT PROCEDURE: MM TOMOSYNTHESIS DIAGNOSTIC BI, 10/09/2024, 12:58 US BREAST RT LIMITED, 10/09/2024, 13:41 COMPARISON: MM TOMOSYNTHESIS DIAGNOSTIC BI, 11/19/2023. INDICATIONS: ABNORMAL MAMMOGRAM, S/P LUMPECTOMY Calculator Name NCI Breast Cancer Risk Assessment Tool 5 Year Breast Cancer Risk 3.70% Lifetime Breast Cancer Risk 27.90% Personal Breast Cancer No Personal Ovarian Cancer No Treatments None Family Cancers Mother with pancreas cancer at age 55; Grandfather-paternal with liver cancer at age ~68; Grandmother-paternal with brain cancer at age ~74. LOCATION: [facility] BREAST COMPOSITION: The breasts are extremely dense, which lowers the sensitivity of mammography. FINDINGS: DIAGNOSTIC CATEGORY 2--BENIGN FINDING. NO CHANGE FROM COMPARISON. Scattered benign-appearing nodules are present. Scattered benign-appearing calcifications are present. Scattered benign-appearing lymph nodes are present. RIGHT BREAST: No significant suspicious finding. Stable micro clip marker upper outer quadrant, posterior breast. Linear scar marker. Ultrasound demonstrates multiple cystic areas many of which are anechoic the largest measuring 6.1 x 5.2 x 6.0 mm. Several lesions have low-level internal echoes and likely represent complex cysts. The micro clip marker is observed. LEFT BREAST: No significant suspicious finding. RECOMMENDATIONS: ROUTINE MAMMOGRAM AND CLINICAL EVALUATION IN 12 MONTHS. PLEASE NOTE: A NORMAL MAMMOGRAM DOES NOT EXCLUDE THE POSSIBILITY OF BREAST CANCER. A CLINICALLY SUSPICIOUS PALPABLE LUMP SHOULD BE BIOPSIED. Dictated by: Kumar Nieves MD on 10/09/2024 at 14:34 Approved by: Kumar Nieves MD on 10/09/2024 at 14:35
== END 2024-10-09 12:54 | disposition home or self-care (01) ==
LOC: MAMMO 12:53
PROVIDERS: PCP Nurse Practitioner; Visit Provider Surgery
DX: R92.8 Other abnormal and inconclusive findings on diagnostic imaging of breast (principal); N60.11 Diffuse cystic mastopathy of right breast; N60.91 Unspecified benign mammary dysplasia of right breast; Z98.890 Other specified postprocedural states; Z80.8 Family history of malignant neoplasm of other organs or systems
CPT/HCPCS: 76642; 77066; G0279